=== PATIENT | female | born 1955 | race Caucasian/White ===

== ENCOUNTER → 2019-05-02 15:34 | Outpatient (CLI) | payer MEDICAID, SELFPAY ==
[2019-05-02 14:43] VITALS: BMI 19.6
--- NOTE | 2019-05-02 15:44 | RAD_ITS ---
STUDY: X-RAY CHEST REASON FOR EXAM: Female, 63 years old. Cough, shortness of breath and tightness of the chest. TECHNIQUE: 2 views COMPARISON: None. FINDINGS: The lungs are clear and expanded. There is no demonstrated pleural abnormality. Normal size heart. Normal mediastinum and jocy. Normal visualized pulmonary arteries. Normal visualized aortic arch and descending thoracic aorta. Normal visualized thoracic spine. Normal visualized ribs, clavicles, and shoulders. There is no demonstrated abnormality of the visualized soft tissue structures of the upper abdomen. RAD/Chest PA and Lateral IMPRESSION: Normal x-ray examination of the chest. Electronically Signed: Anastasiya Cardozo MD at 16:02 EST , Service support ,
== END ==
PROVIDERS: Family Provider Internal Medicine; PCP Internal Medicine; Referring Provider Nurse Practitioner Family; Visit Provider Nurse Practitioner Family
DX: R05 Cough (principal)
CPT/HCPCS: 71046

== ENCOUNTER 2019-05-07 10:12 | Emergency (ER) | payer MEDICAID, SELFPAY ==
[2019-05-02 14:43] VITALS: BMI 19.6
[2019-05-07 10:15] VITALS: BP 125/97; PULSE 88; RESP 16; TEMP 36.6; O2SAT 98; BMI 21.0
--- NOTE | 2019-05-07 10:41 | CT_ITS ---
STUDY: CT BRAIN WITHOUT CONTRAST REASON FOR EXAM: Female, 63 years old. Bruising of the left orbital region secondary to a syncopal episode. RADIATION DOSAGE (If Supplied By Facility): CTDIvol = ( 44.99 ) mGy, DLP = ( 678.00 ) mGycm TECHNIQUE: Transaxial CT imaging of the brain was performed without administration of intravenous contrast material. Individualized dose optimization techniques were used for this CT. COMPARISON: No relevant priors. FINDINGS: Normal soft tissue structures. Normal calvarium. Normal size ventricles and extra-axial spaces for the patient's age. Normal white matter tracts of the cerebral hemispheres. Normal basal ganglia and thalami. Normal brainstem. Normal cerebellum. There is no intracranial hemorrhage. There are no findings of an acute ischemic infarction. Normal visualized paranasal sinuses. CT/Brain/Head without Contrast IMPRESSION: Normal unenhanced CT scan of the brain. Electronically Signed: Solomon Barry, at 11:28 EST , Service support ,
--- NOTE | 2019-05-07 10:41 | EKG12_ITS ---
Test Reason : SYNCOPE Blood Pressure : / mmHG Vent. Rate : 079 BPM Atrial Rate : 079 BPM P-R Int : 136 ms QRS Dur : 078 ms QT Int : 346 ms P-R-T Axes : 066 052 038 degrees QTc Int : 396 ms Normal sinus rhythm Nonspecific ST abnormality Abnormal ECG Confirmed by GISELLA NUÑEZ, SHARDA ([id number]), development editor JOLENE SKELTON ([id number]) on 05/08/2019 1:52:11 PM Referred By: Nabil Stoddard Confirmed By:SHARDA OBANDO MD
[2019-05-07 10:43] VITALS: BP 158/89; PULSE 86; RESP 16; O2SAT 95
--- NOTE | 2019-05-07 10:45 | ED.DCSUM_ITS ---
- ER Visit Summary Date of Service: 05/07/19 Chief Complaint: Fatigue History of Present Illness: The patient is a 63 F who states that on Tuesday she was syncopal episode in the bathroom. When she woke up she had a black eye and soreness over the left mid chest in the midaxillary line. She states for the past 5 weeks she is felt increasingly dizzy lightheaded short of breath with decreased energy. States her children moved here from [place] the here. She states her earlier this year and she has not been sleeping and eating well. States that she knows that she is depressed. No suicidal or homicidal thoughts. She notes she recently establish care Dr. Schwartz office. She states that she feels like she had pneumonia she had a chest x-ray that was negative. Denies any chest pain. Her daughter states that they are concerned that she is going to kill over. And that is why they are here. She has a history of tachycardia hypertension and GERD. She is a former smoker. Tells me that she has irritable bowel and has had some mucus in her stools. Physical Examination: Afebrile vital signs stable Gen: Well-nourished well-developed Head: Normocephalic Eyes: Perrl EOMI left periorbital ecchymosis (purple) ENT: TMs clear no rhinorrhea moist mucous membranes Neck: Supple no lymphadenopathy no JVD nontender CVS: Regular rate rhythm no murmurs normal S1-S2 Respiratory: No distress clear to auscultation bilaterally chest to palpation in the mid thorax mid axillary line. On the left. Abdomen: Soft nontender nondistended normal bowel sounds no masses Back: Nontender Extremity: Nontender no edema Skin: Normal color no rash Neuro: alert orientated ?3 CN II-XII intact normal strength sensation reflexes gait cerebellar Psych: Normal affect normal mood Test Results: White count is 16.9 but I do not have a obvious source of infection for her. Basic labs are negative. Troponin is negative. Chest x-ray is negative CT the brain is negative. EKG showed a sinus rhythm at a rate 9 without ectopy. The last I have to compare to was 10 years ago. Emergency Department Course and Treatment: Orthostatics are negative. I do not have a clear etiology for her leukocytosis however she is recently been on antibiotics and has some mucousy stools. After she provide us a stool specimen she says no. Certainly her weakness fatigue could be related to her depression which is probably contributing to her significant 30 pound weight loss not eating or drinking as well and not sleeping very well. She may need a cardiac stress test. And echocardiogram. I spoke with and relayed my concerns. They will follow-up with her in the office. Patient return if worsening or runs. Impression: 1. Syncope 2. Left periorbital contusion 3. Left chest contusion 4. Leukocytosis 5. Depression This note was generated with [employer] software. It may contain incorrect words, spelling, and punctuation that were not noted in review of the chart prior to signing ED Disposition - Plan for ED Patient: Disposition: Home or Assisted Living Instructions: WEAKNESS, Unk Cause Referrals: Alexa Schwartz MD [Primary Care Provider] - As soon as possible Additional Instructions: In your discharge instructions is a order for stool culture and C. difficile testing.
[2019-05-07 10:46] VITALS: BP 115/76; BP 126/75; BP 156/77; PULSE 85; PULSE 89; PULSE 96
[2019-05-07 11:06] LABS: White Blood Cells 0 SEEN /hpf (0-5)
[2019-05-07 11:09] LABS: Absolute Lymphocyte Count 2.15 X10^3/uL (0.83-4.51); Absolute Neutrophil Count 13.1 X10^3/uL (2.0-7.7); Basophil# 0.05 X10^3/uL; Basophil% 0.3 % (0-1); Eosinophil# 0.04 X10^3/uL; Eosinophils% 0.2 % (0-5); Hemoglobin 14.5 g/dL (12.0-15.0); Lymphocyte # 2.15 X10^3/ul (4.0); Lymphocyte % 12.7 % (19-41); Mean Corp Hgb Conc 31.5 g/dL (32-36); Mean Platelet Vol. 11.1 fl (6.2-12.0); Monocyte# 1.44 X10^3/uL; Monocyte% 8.5 % (0-10); NRBC Flagged by Analyzer 0 % (0-5); Neutrophil # 13.13 X10^3/uL (2.7-7.7); Neutrophil % 77.6 % (47-70); Platelet Count 199 K/mm3 (150-450); RBC Distribution Width CV 12.9 % (11.6-14.6); RBC Distribution Width SD 43.6 fl (35.1-43.9); White Blood Count 16.9 K/mm3 (4.4-11.0)
[2019-05-07 11:15] LABS: Color, Urine Yellow (Yellow); Glucose, Dipstick Normal (Normal); Ketone-Dipstick Negative (Negative); Leukocyte Esterase-Dipstick Negative /ul (Negative); Nitrite-Dipstick Negative (Negative); Occult Blood-Urine 25 /ul (Negative); Protein-Dipstick 15 mg/dl (Negative); Urine Bilirubin Dipstick Negative (Negative); Urine Clarity Sl. Cloudy (Clear); Urine Urobilinogen Normal (Normal)
--- NOTE | 2019-05-07 11:15 | RAD_ITS ---
STUDY: X-RAY CHEST REASON FOR EXAM: Female, 63 years old. 50 and dizziness. TECHNIQUE: Single AP portable view of the chest. COMPARISON: Comparison is made with prior study dated May 02, 2019. FINDINGS: EKG electrodes are seen. Hyperinflation. Scattered calcified granulomas. There is no demonstrated pleural abnormality. Normal size heart. Normal mediastinum and jocy. Normal visualized pulmonary arteries. Normal visualized aortic arch and descending thoracic aorta. Normal visualized thoracic spine. Normal visualized ribs, clavicles, and shoulders. There is no demonstrated abnormality of the visualized soft tissue structures of the upper abdomen. RAD/Chest PA and Lateral IMPRESSION: Hyperinflation. Electronically Signed: Solomon Barry, at 11:28 EST , Service support ,
[2019-05-07 11:26] LABS: AST(SGOT) 19 U/L (15-37); Alanine Aminotransfer ALT/SGPT 25 U/L (13-56); Albumin, Serum 3.3 g/dL (3.2-5.0); Alkaline Phosphatase 94 U/L (45-117); Anion Gap 6 (5-15); BUN 10 mg/dL (7-18); Bilirubin, Direct 0.21 mg/dL (0.00-0.30); Calcium,Total 9.3 mg/dL (8.5-10.1); Chloride 105 mmol/L (98-107); EST Glomerular Filtration Rate 59 mL/min (>60); Est Glom Filt Rate - Afr Amer 72 mL/min (>60); Estimated Creatinine Clearance 45.54 ml/min; Globulin 4.3 g/dL (2.2-4.2); Glucose 106 mg/dL (74-106); Lipase 109 U/L (73-393); Potassium 3.9 mmol/L (3.5-5.1); Protein, Total 7.6 g/dL (6.4-8.2); Sodium Level 141 mmol/L (136-145)
[2019-05-07 11:31] LABS: Red Blood Cells-Urine 0-5 SEEN /hpf (0-5); Squamous Epithelial Cells - UA 0-5 SEEN /hpf (5-10)
[2019-05-07 11:32] LABS: Bacteria RARE /hpf (None Seen); Mucous, Urine RARE /hpf (<or=2+)
[2019-05-07 12:13] VITALS: BP 148/99; PULSE 85; RESP 16; O2SAT 96
== END 2019-05-07 13:03 | disposition home or self-care (01) ==
PROVIDERS: Emergency Provider Emergency Medicine; Family Provider Internal Medicine; PCP Internal Medicine
DX: R55 Syncope and collapse (principal); S00.12XA Contusion of left eyelid and periocular area, initial encounter; S20.212A Contusion of left front wall of thorax, initial encounter; X58.XXXA Exposure to other specified factors, initial encounter; Y93.9 Activity, unspecified; Y92.9 Unspecified place or not applicable; Y99.9 Unspecified external cause status; D72.829 Elevated white blood cell count, unspecified; F32.9 Major depressive disorder, single episode, unspecified; I10 Essential (primary) hypertension; K21.9 Gastro-esophageal reflux disease without esophagitis; K58.9 Irritable bowel syndrome, unspecified; R00.0 Tachycardia, unspecified; R63.4 Abnormal weight loss; F41.9 Anxiety disorder, unspecified; Z79.899 Other long term (current) drug therapy; Z87.891 Personal history of nicotine dependence
CPT/HCPCS: 70450; 71046; 80048; 80076; 81001; 83690; 84484; 85025; 93005; 99285; A4216

== ENCOUNTER → 2019-05-08 08:24 | Outpatient (CLI) | payer MEDICAID, SELFPAY ==
[2019-05-07 10:15] VITALS: BMI 21.0
== END ==
PROVIDERS: Family Provider Internal Medicine; PCP Internal Medicine; Referring Provider Internal Medicine; Visit Provider Internal Medicine
DX: R19.7 Diarrhea, unspecified (principal)
CPT/HCPCS: 87493; 87506

== ENCOUNTER → 2019-06-07 11:58 | Outpatient (CLI) | payer MEDICAID, SELFPAY ==
[2019-06-07 10:39] VITALS: BMI 19.8
[2019-06-07 13:28] LABS: T4 Total, Thyroxin 9.6 ug/dL (4.8-13.9); Thyroid Stim Hormone (TSH) 1.03 uIU/mL (0.358-3.74)
== END ==
PROVIDERS: Family Provider Internal Medicine; PCP Internal Medicine; Referring Provider Internal Medicine Cardiovascular Disease; Visit Provider Internal Medicine Cardiovascular Disease
DX: R53.83 Other fatigue (principal)
CPT/HCPCS: 36415; 84436; 84443

== ENCOUNTER → 2019-06-11 12:24 | Outpatient (REF) | payer MEDICAID, SELFPAY ==
[2019-06-07 10:39] VITALS: BMI 19.8
== END ==
LOC: CVS 12:24
PROVIDERS: Family Provider Internal Medicine; PCP Internal Medicine; Referring Provider Internal Medicine Cardiovascular Disease; Visit Provider Internal Medicine Cardiovascular Disease
DX: R00.2 Palpitations (principal); R53.83 Other fatigue
CPT/HCPCS: 93270

== ENCOUNTER → 2019-06-14 08:28 | Outpatient (CLI) | payer MEDICAID, SELFPAY ==
[2019-06-13 14:40] VITALS: BMI 19.8
[2019-06-14 12:15] LABS: Absolute Lymphocyte Count 2.24 X10^3/uL (0.83-4.51); Basophil# 0.05 X10^3/uL; Basophil% 0.7 % (0-1); Eosinophils% 1.4 % (0-5); Hematocrit 46.3 % (37-47); Hemoglobin 14.6 g/dL (12.0-15.0); Lymphocyte # 2.24 X10^3/ul (4.0); Lymphocyte % 31.9 % (19-41); Mean Corp Hgb Conc 31.5 g/dL (32-36); Mean Corpuscular Hgb 28.9 pg (27.0-32.0); Mean Corpuscular Volume 91.5 fL (81-99); Mean Platelet Vol. 12.2 fl (6.2-12.0); Monocyte# 0.61 X10^3/uL; Monocyte% 8.7 % (0-10); NRBC Flagged by Analyzer 0 % (0-5); Neutrophil # 4.01 X10^3/uL (2.7-7.7); Platelet Count 181 K/mm3 (150-450); RBC Distribution Width CV 13.1 % (11.6-14.6); Red Blood Count 5.06 M/mm3 (4.2-5.4)
[2019-06-14 12:35] LABS: Vitamin D,25 Hydroxy 36.3 ng/mL (29.95-100.01)
== END ==
PROVIDERS: Family Provider Internal Medicine; PCP Internal Medicine; Visit Provider Internal Medicine
DX: D72.829 Elevated white blood cell count, unspecified (principal); F32.9 Major depressive disorder, single episode, unspecified; F41.9 Anxiety disorder, unspecified; R53.83 Other fatigue; E55.9 Vitamin D deficiency, unspecified; M81.0 Age-related osteoporosis without current pathological fracture
CPT/HCPCS: 36415; 82306; 85025

== ENCOUNTER → 2019-06-26 05:44 | Outpatient (CLI) | payer MEDICAID, SELFPAY ==
[2019-06-07 10:39] VITALS: BMI 19.8
[2019-06-13 14:40] VITALS: BMI 19.8
--- NOTE | 2019-06-26 05:44 | ECHOD_ITS ---
Reason For Study: SOB Procedure This was a 2D Doppler, Color Flow transthoracic echocardiogram. The exam was of adequate technical quality. Exam performed in department. Left Ventricle Normal LV size. Left ventricular systolic function is normal. The estimated ejection fraction is 60 %. No evidence for diastolic dysfunction. No regional wall motion abnormalities noted. Right Ventricle Normal RV size. Normal systolic function. Atria The left atrium is mildly enlarged. Normal right atrium. No doppler evidence for ASD. Mitral Valve There is no mitral annular calcification. Normal mitral valve. Mild (1+) mitral valve insufficiency. Tricuspid Valve Normal tricuspid valve. Trivial tricuspid valve insufficiency. Right ventricular systolic pressure estimated to be 26 mmHg. Aortic Valve Trisinus/trileaflet aortic valve. Normal aortic valve. Pulmonic Valve The pulmonic valve is not well visualized. Great Vessels Normal sized aortic root. Pericardium/Pleural No pericardial effusion. MMode/2D Measurements & Calculations LVIDd: 3.9 cm IVSd: 1.1 cm Ao root diam: 2.9 cm LVIDs: 2.6 cm LVPWd: 0.73 cm RVDd: 2.4 cm FS: 32.1 % LAV(MOD-bp): 32.4 ml LA A4 area: 14.7 cm2 LA dimension(2D): 2.6 cm LAV(MOD-bp) Indexed: 21.6 ml/m2 LAV(MOD-sp2): 31.2 ml LAV(MOD-sp4): 34.5 ml RA A4 area: 10.7 cm2 Doppler Measurements & Calculations MV E max rancho: 59.2 cm/sec Lat Peak E' Rancho: 10.8 cm/sec Med Peak E' Rancho: 7.3 cm/sec MV A max rancho: 65.7 cm/sec E/E' lat: 5.5 E/E' med: 8.1 MV E/A: 0.90 Ao V2 max: 116.4 cm/sec LV V1 max: 98.3 cm/sec PA V2 max: 93.0 cm/sec Ao max P.4 mmHg LV V1 max P.9 mmHg TR max rancho: 237.8 cm/sec TR max P.6 mmHg Interpretation Summary Left ventricular systolic function is normal. The estimated ejection fraction is 60 %. The left atrium is mildly enlarged. Mild (1+) mitral valve insufficiency. Trivial tricuspid valve insufficiency. Right ventricular systolic pressure estimated to be 26 mmHg. No evidence for diastolic dysfunction. Ordering Physician: Alvarez Salinas Referring Physician: Alexa Schwartz Performed By: Penny Casanova RDCS
--- NOTE | 2019-06-26 11:29 | STRESSREP_ITS ---
Stress Test Report Date: 06-26-19 Procedure: Exercise tolerance test/imaging study Indications: Shortness of breath/dyspnea on exertion; fatigue; syncope Consent: Per the patient Procedure: The patient exercised on a Sridhar protocol for 4 minutes and 30 seconds completing Stage I and 1 minute and 30 seconds of Stage II achieving a peak heart rate of 139 bpm (89 % predicted maximal heart rate) with a peak blood pressure 154/87 mmHg and a peak MET capacity of 6 METs. The baseline ECG demonstrated normal sinus rhythm; subtle ST segment depression (lead II, III, aVF, and V4 through V6). The peak exercise ECG demonstrated additional 1 to 2 mm of horizontal/downsloping ST segment depression in leads II, III, aVF, and V4 through V6 with gradual resolution towards baseline in recovery. There were rare PVCs pretest and in exercise and rare PACs during exercise. The functional capacity was considered decreased. There was no complaint of chest discomfort during exercise or recovery. The examination was discontinued secondary to dyspnea. Impression: 1. Technically adequate (percent predicted maximal heart rate greater than 85%) exercise tolerance test 2. Peak exercise ECG with an additional 1 to 2 mm of horizontal/downsloping ST segment depression in leads II, III, aVF, and V4 through V6 with gradual resolution towards baseline in recovery 3. There were rare PVCs pretest and in exercise and rare PACs during exercise 4. Nuclear images pending Myocardial perfusion imaging study: Technique: The patient was injected with 10.6 mCi of technetium 99m Cardiolite and subsequently rest SPECT Cardiolite nuclear imaging was obtained in the horizontal long, vertical long, and short axis views. The patient exercised on a Sridhar protocol for 4 minutes and 30 seconds completing Stage I and 1 minute and 30 seconds of Stage II achieving a peak heart rate of 139 bpm (89 % predicted maximal heart rate) with a peak blood pressure 154/87 mmHg and a peak MET capacity of 6 METs. The patient was injected with the 37.5 mCi of technetium 99m Cardiolite and subsequently stress SPECT Cardiolite nuclear imaging was obtained in the horizontal long, vertical long, and short axis views. A gated Cardiolite study at peak stress was obtained. Interpretation: Rest and stress SPECT Cardiolite nuclear imaging status post realignment, normalization, and attenuation correction, demonstrates the appearance of relative uniform tracer uptake and myocardial perfusion appearing within normal limits. There is end systolic thickening and brightening. The gated Cardiolite study demonstrates myocardial thickening and inward wall motion. The reported LVEF is 75 %. Impression: 1. Rest and stress SPECT Cardiolite nuclear imaging demonstrate relative uniform tracer uptake and myocardial perfusion appearing within normal limits. 2. The gated Cardiolite study reports an LVEF of 75 %. This note was generated with [employer] software. It may contain incorrect words, spelling, and punctuation that were not noted in checking the note before signing.
== END ==
PROVIDERS: Family Provider Internal Medicine; PCP Internal Medicine; Referring Provider Internal Medicine Cardiovascular Disease; Visit Provider Internal Medicine Cardiovascular Disease
DX: R53.83 Other fatigue (principal); R06.02 Shortness of breath
CPT/HCPCS: 78452; 93017; 93306; A9500; A4216

== ENCOUNTER 2019-07-10 16:37 | Observation (INO) | payer MEDICAID, SELFPAY ==
[2019-07-02 10:29] VITALS: BMI 19.8
[2019-07-03 13:05] VITALS: BMI 19.8
[2019-07-03 15:20] LABS: Hematocrit 46.8 % (37-47); Hemoglobin 14.8 g/dL (12.0-15.0); Mean Corp Hgb Conc 31.6 g/dL (32-36); Mean Corpuscular Hgb 28.5 pg (27.0-32.0); Mean Corpuscular Volume 90.2 fL (81-99); Mean Platelet Vol. 11.6 fl (6.2-12.0); Platelet Count 232 K/mm3 (150-450); RBC Distribution Width CV 12.6 % (11.6-14.6); RBC Distribution Width SD 41.7 fl (35.1-43.9); Red Blood Count 5.19 M/mm3 (4.2-5.4); White Blood Count 8.3 K/mm3 (4.4-11.0)
[2019-07-03 15:27] LABS: Prothrombin Time (Protime)PT. 12.9 SECONDS (11.7-14.9)
[2019-07-03 15:28] LABS: Partial Thromboplast Time 31.6 Seconds (24.1-36.2)
[2019-07-03 15:52] LABS: Anion Gap 5 (5-15); BUN 9 mg/dL (7-18); BUN/Creat Ratio 9.5 RATIO (10-20); Calcium,Total 9.5 mg/dL (8.5-10.1); Chloride 108 mmol/L (98-107); Creatinine, Serum 0.95 mg/dL (0.55-1.02); EST Glomerular Filtration Rate 63 mL/min (>60); Est Glom Filt Rate - Afr Amer 76 mL/min (>60); Glucose 86 mg/dL (74-106); Sodium Level 141 mmol/L (136-145)
[2019-07-09 08:11] VITALS: BMI 19.8
[2019-07-10] VITALS (14 sets, daily range): BP systolic 94–121; BP diastolic 45–68; PULSE 63–75; RESP 15–18; TEMP 36.4–37.3; O2SAT 92–100; BMI 19.8
--- NOTE | 2019-07-10 09:02 | HP.PCM_ITS ---
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 She has a history of shortness of breath/dyspnea, fatigue, palpitations/tachycardia symptoms, and syncope. She stated previously that in March 2019, while moving and packing boxes, she realized she did not feel well. She felt more short of breath and dyspneic and fatigued and had to stop and rest. Over time she has noted palpitations and the sensation of a rapid heart rate flutters . She has had at least 3 episodes of syncope. She notes the first episode occurred after she awoke from sleep and went to the bathroom. She states on the way to the bathroom she fell and ended up having bruising on her entire left side. She was evaluated approximately 2 days later in the emergency department with no clear-cut etiology. She states that she has had 2 other events since that time one a similar situation event and the other in event after sitting on the sofa and getting up and then subsequently finding herself falling backwards into the sofa. Due to concerning symptoms of shortness of breath, fatigue, and syncope she underwent a stress test on 06/26/2019. Her EKG showed 1 to 2 mm horizontal/downsloping ST segment depression in leads II, III, aVF, and V4 through V6 with gradual exertion towards baseline in recovery. There were rare PVCs pretest and in exercise and rare PACs during exercise. Her nuclear images showed uniform tracer uptake and myocardial perfusion appearing within normal limits. Her echocardiogram on 06/26/2019 showed just fraction of 60% and no regional wall motion abnormalities. She was noted have mild mitral valve insufficiency. Due to her ongoing shortness of breath and EKG changes, it was recommended she undergo a heart catheterization for further evaluation of coronary artery disease. She denies chest, arm, jaw, or neck discomfort. Her exercise tolerance is stable. She denies symptoms of lightheadedness, dizziness, near syncope, or syncopal episodes. She denies edema or claudication issues. She denies orthopnea, PND, fever, chills, blood in urine, blood in stool, or myalgia. She continues with fatigue and shortness of breath. He states feeling shock in her chest at times. Intake Vital Signs See EMR Intake Visit Reasons: [employer] Required: No Accompanied by: Daughter Allergies tramadol Allergy (Severe, Verified 06/07/19 10:39) Fast heart beat lanolin [From Phisoderm] Allergy (Mild, Verified 06/07/19 10:39) Rash petrolatum,white [From Phisoderm] Allergy (Mild, Verified 06/07/19 10:39) Rash Estrogen Patch Allergy (Unknown, Uncoded 06/07/19 10:39) Rash Medications See EMR [facility] Medical History Essential hypertension (Chronic) Anxiety and depression (Chronic) Syncopal episodes (Chronic) Rheumatoid arthritis (Chronic) Osteoporosis (Chronic) Tachycardia (Chronic) IBS (irritable bowel syndrome) (Chronic) GERD (gastroesophageal reflux disease) (Chronic) Anemia (Acute) Cervical cancer (Acute) Anxiety (Chronic) Arthritis (Chronic) Cataract (Chronic) Frequent headaches (Chronic) Hypoglycemia (Chronic) Seasonal allergies (Chronic) Bone fracture (Resolved) Breast tumor (Resolved) Pneumonia (Resolved) UTI (urinary tract infection) (Resolved) Surgical History History Clip Left Breast (Resolved) History of D&C (Resolved) History of loop electrosurgical excision procedure (LEEP) (Resolved) History of tonsillectomy (Resolved) History of tubal ligation (Resolved) Family History Other Anxiety Arthritis Breast cancer Cancer Diabetes Heart disease High cholesterol Hypertension Myocardial infarction Osteoporosis Social History (Updated 06/07/19 @ 12:58 by Alvarez Salinas MD) Smoking Status: Former smoker how long ago did patient quit smokin alcohol intake: never substance use type: does not use caffeine: Yes Type: coffee Number of servings: 1 what type of physical activity do you participate in: none ROS Const Const: Positive for fatigue (increased) and weakness (increased); negative for frequent falls, excessive sweating, weight gain or weight loss Eyes Eyes: Negative for transient loss of vision, blurry vision or change in vision ENT ENT: Positive for dizziness (occasional with activities and sitting to standing); negative for balance problems Cardio Chest Pain: No Palpitations: Yes (all of the time) feels like its: fast, other (flutters) Edema: None Muscle aches with walking: None Resp Respiratory: Positive for SOB with activity and SOB at rest GI GI: Negative vomiting or vomiting blood/hematemesis : Negative for hematuria Musc Musc: Negative for muscle aches/ myalgia, muscle weakness, joint pain or balance problems Skin Skin: Negative non-healing lesions or rash Neuro Neuro: Positive for dizziness (occasional with activities and sitting to standing), lightheadedness (occasional with activities and sitting to standing), near syncope, syncope (x3 episodes going from sitting to standing) and weakness (increased); negative for orthostatic symptoms, frequent falls or blurry vision Sancho Hematologic/Lymphatic: Negative for easy bleeding Endo Endo: Positive for fatigue (increased); negative for excessive sweating Psych Psych: Negative for anxiety or depression Allergy Allergy/Immunology: Negative for hives, Negative for rash Cardiology Exam Const Appearance: cooperative, healthy appearing, comfortable, no acute distress, well developed and well groomed Nutritional Appearance: thin Orientation: alert, awake and oriented x3 Head Head: normal to inspection, normocephalic and atraumatic Ears: hearing grossly normal bilaterally Nose: external nose normal Face and Sinus: face symmetric Mouth: oral mucosae normal Teeth and gingiva: fair dentition Eyes Eyelids: eyelids normal Conjunctivae: conjunctivae normal Pupils: PERRL EOM: EOM intact bilaterally Neck Neck: normal visual inspection and full ROM Carotids: normal carotid upstroke Chest Chest inspection: normal inspection of the chest, symmetric chest movement and normal respiratory effort Auscultation: Bilateral: Clear to Auscultation Cardio Palpation: normal PMI Rate: regular rate Rhythm: regular rhythm Heart sounds: S1 normal and S2 normal GI GI: normal to inspection, soft and bowel sounds present Neuro General: alert, awake, oriented x3 and moves all extremities Skin Skin: no rashes or lesions noted Extremities Pulses: Normal: Right Radial Pulse, Left Radial Pulse Lower Extremity Edema: None: Bilateral Psych Psychological: normal affect Assessment & Plan 1. Syncope, unspecified syncope type R55 Plan At the present time the etiology of her syncope is uncertain, however, it appears that she has had situational events raising concerns as to whether or not she had positional/orthostatic/vagally mediated type events. At the moment she was encouraged to maintain adequate hydration. She will continue her medical management with adjustments as noted. She will also undergo further cardiovascular evaluation for her multiple symptoms and concerns. We will await the results of her 30-day event monitor for further input and recommendation. Over time, she may require tilt table study. 2. Tachycardia R00.0 Plan Again she will undergo a 30-day ambulatory event monitor and attempt to correlate any of her symptoms with her clinical events. 3. Palpitations R00.2 Plan She will continue evaluation with a 30-day ambulatory event monitor to try and correlate her symptoms with her events. 4. Essential hypertension I10 Plan She will continue with medical therapy. 5. Shortness of breath R06.02 Plan This will be further evaluated with left heart catheterization to evaluate coronary artery disease component. As noted above, her echocardiogram showed preserved ejection fraction, mild mitral valve insufficiency, RVSP 26 mmHg, no diastolic dysfunction, and mildly enlarged left atrium. She will proceed with [facility]. 6. Fatigue, unspecified type R53.83 Plan Her laboratory evaluation with TSH and T4 on 06/07/2019 were within normal limits. Additional Comments Thank you for allowing me to participate in the care of your patient. Please don't hesitate to call if any issues arise. This note was generated using a voice recognition system and there may be incorrect words, spelling or punctuation that were not noted when reviewing the office note prior to saving.
--- NOTE | 2019-07-10 09:09 | PCM.HP.BLA ---
Problem List (1) Dyspnea on exertion Status: Acute (2) Abnormal stress test Status: Acute (3) Syncopal episodes Status: Chronic Qualifiers: Syncope type: unspecified Qualified Code(s): R55 - Syncope and collapse (4) Essential hypertension Status: Chronic History and Physical Date of Admission: 07/10/19 [facility] [address] [place] [address] OFFICE VISIT Date of Service: 06/07/19 MR#: [id number] Acct: [id number] Name: CATHI GONZALEZ Rep #: [id number] : 1955 Provider: Alvarez Salinas MD Age/Sex: 64/F [place] [facility] [place] Status: Signed [facility] History of Present Illness Details: This is a 64-year-old white female who presents for outpatient cardiovascular consultation based upon a variety of concerns including shortness of breath/dyspnea, fatigue, palpitations/tachycardia symptoms, and syncope. She states that in March, while moving and packing boxes, she realized she did not feel well. She felt more short of breath and dyspneic and fatigued and had to stop and rest. Over time she has noted palpitations and the sensation of a rapid heart rate flutters . She has had at least 3 episodes of syncope. She notes the first episode occurred after she awoke from sleep and went to the bathroom. She states on the way to the bathroom she fell and ended up having bruising on her entire left side. She was evaluated approximately 2 days later in the emergency department with no clear-cut etiology. She states that she has had 2 other events since that time one a similar situation event and the other in event after sitting on the sofa and getting up and then subsequently finding herself falling backwards into the sofa. She is not necessarily complaining of ongoing chest discomfort at rest or with exertion. There is been no orthopnea or PND or peripheral pitting edema. However she states that she does not believe she has been drinking and eating well. She believes she has lost approximately 30 pounds. Throughout her evaluation she was told that she may have had some form of infection. She was treated with antibiotics and corticosteroids. However she is not convinced that she ever truly did have an infection. She states that she underwent no other outpatient testing. In the emergency department per their report she had laboratory studies performed with a troponin I level which was considered negative, an ECG which reportedly demonstrated sinus rhythm, and a chest x-ray and brain CT scan which were both considered negative. (Per the emergency department report). She had an ECG in the office today. She was noted to be in sinus rhythm with subtle nonspecific ST segment abnormality. Intake Vital Signs 06/07/19 Blood Pressure 162/100 H 06/07/19 Blood Pressure Location Lt brachial 06/07/19 Blood Pressure Position Standing 06/07/19 Height 5 ft 2.5 in 06/07/19 Weight: 110 lb 1 oz 06/07/19 Body Mass Index (BMI) 19.8 06/07/19 Blood Pressure 164/92 H 06/07/19 Blood Pressure Location Lt brachial 06/07/19 Blood Pressure Position Sitting 06/07/19 Respiratory Rate 16 06/07/19 Pulse Rate 56 L 06/07/19 Pulse Source Auscultation 06/07/19 Body Mass Index (BMI) 21.0 Intake Visit Reasons: tachycardia/ Ref. Efren Mobility Architect Required: No Accompanied by: Daughter Allergies tramadol Allergy (Severe, Verified 06/07/19 10:39) Fast heart beat lanolin [From Phisoderm] Allergy (Mild, Verified 06/07/19 10:39) Rash petrolatum,white [From Phisoderm] Allergy (Mild, Verified 06/07/19 10:39) Rash Estrogen Patch Allergy (Unknown, Uncoded 06/07/19 10:39) Rash Medications famotidine 20 mg tablet 20 mg PO QHS #30 tab 05/16/19 [Rx Confirmed 06/07/19] sertraline 25 mg tablet 25 mg PO DAILY #60 tab 05/16/19 [Rx Confirmed 06/07/19] amlodipine 2.5 mg tablet 2.5 mg PO DAILY #30 tab 06/07/19 [Rx Confirmed 06/07/19] metoprolol succinate ER 25 mg tablet,extended release 24 hr 25 mg PO DAILY #30 tab 06/07/19 [Rx Confirmed 06/07/19] PFSH Medical History Essential hypertension (Chronic) Anxiety and depression (Chronic) Syncopal episodes (Chronic) Rheumatoid arthritis (Chronic) Osteoporosis (Chronic) Tachycardia (Chronic) IBS (irritable bowel syndrome) (Chronic) GERD (gastroesophageal reflux disease) (Chronic) Anemia (Acute) Cervical cancer (Acute) Anxiety (Chronic) Arthritis (Chronic) Cataract (Chronic) Frequent headaches (Chronic) Hypoglycemia (Chronic) Seasonal allergies (Chronic) Bone fracture (Resolved) Breast tumor (Resolved) Pneumonia (Resolved) UTI (urinary tract infection) (Resolved) Surgical History History Clip Left Breast (Resolved) History of D&C (Resolved) History of loop electrosurgical excision procedure (LEEP) (Resolved) History of tonsillectomy (Resolved) History of tubal ligation (Resolved) Family History Other Anxiety Arthritis Breast cancer Cancer Diabetes Heart disease High cholesterol Hypertension Myocardial infarction Osteoporosis Social History (Updated 06/07/19 @ 12:58 by Alvarez Salinas MD) Smoking Status: Former smoker how long ago did patient quit smokin alcohol intake: never substance use type: does not use caffeine: Yes Type: coffee Number of servings: 1 what type of physical activity do you participate in: none ROS Const Const: Positive for fatigue (increased) and weakness (increased); negative for frequent falls, excessive sweating, weight gain or weight loss Eyes Eyes: Negative for transient loss of vision, blurry vision or change in vision ENT ENT: Positive for dizziness (occasional with activities and sitting to standing); negative for balance problems Cardio Chest Pain: No Palpitations: Yes (all of the time) feels like its: fast, other (flutters) Edema: None Muscle aches with walking: None Resp Respiratory: Positive for SOB with activity and SOB at rest GI GI: Negative vomiting or vomiting blood/hematemesis : Negative for hematuria Musc Musc: Negative for muscle aches/ myalgia, muscle weakness, joint pain or balance problems Skin Skin: Negative non-healing lesions or rash Neuro Neuro: Positive for dizziness (occasional with activities and sitting to standing), lightheadedness (occasional with activities and sitting to standing), near syncope, syncope (x3 episodes going from sitting to standing) and weakness (increased); negative for orthostatic symptoms, frequent falls or blurry vision Sancho Hematologic/Lymphatic: Negative for easy bleeding Endo Endo: Positive for fatigue (increased); negative for excessive sweating Psych Psych: Negative for anxiety or depression Allergy Allergy/Immunology: Negative for hives, Negative for rash Cardiology Exam Const Appearance: cooperative, healthy appearing, comfortable, no acute distress, well developed and well groomed Nutritional Appearance: thin Orientation: alert, awake and oriented x3 Head Head: normal to inspection, normocephalic and atraumatic Ears: hearing grossly normal bilaterally Nose: external nose normal Face and Sinus: face symmetric Mouth: oral mucosae normal Teeth and gingiva: fair dentition Eyes Eyelids: eyelids normal Conjunctivae: conjunctivae normal Pupils: PERRL EOM: EOM intact bilaterally Neck Neck: normal visual inspection and full ROM Carotids: normal carotid upstroke Chest Chest inspection: normal inspection of the chest, symmetric chest movement and normal respiratory effort Auscultation: Bilateral: Clear to Auscultation Cardio Palpation: normal PMI Rate: regular rate Rhythm: regular rhythm Heart sounds: S1 normal and S2 normal GI GI: normal to inspection, soft and bowel sounds present Neuro General: alert, awake, oriented x3 and moves all extremities Skin Skin: no rashes or lesions noted Extremities Pulses: Normal: Right Radial Pulse, Left Radial Pulse Lower Extremity Edema: None: Bilateral Psych Psychological: normal affect Assessment & Plan 1. Syncope, unspecified syncope type R55 Plan At the present time the etiology of her syncope is uncertain, however, it appears that she has had situational events raising concerns as to whether or not she had positional/orthostatic/vagally mediated type events. At the moment she was encouraged to maintain adequate hydration. She will continue her medical management with adjustments as noted. She will also undergo further cardiovascular evaluation for her multiple symptoms and concerns. This will include an outpatient 30-day ambulatory event monitor, transthoracic echocardiogram, and an exercise tolerance test/imaging study. She may also need over time further evaluation with a tilt table study. 2. Tachycardia R00.0 Plan Again she will undergo a 30-day ambulatory event monitor and attempt to correlate any of her symptoms with her clinical events. Orders Orders: 12 Lead EKG performed [place] [facility] [place] 3. Palpitations R00.2 Plan She will continue evaluation with a 30-day ambulatory event monitor to try and correlate her symptoms with her events. Orders Orders: 30 Day Event Recorder BioT Today 4. Essential hypertension I10 Plan Her patients will be adjusted. Based upon her underlying heart rate she will continue her metoprolol XL at 25 mg a day as opposed to increasing it to 100 mg a day. She will also initiate medical management with amlodipine at 2.5 mg a day and attempt to bring her blood pressure down without adversely affecting her heart rate. These medications may need to be adjusted over time depending upon her response. Orders Orders: 12 Lead EKG performed by [facility] Today 5. Shortness of breath R06.02 Plan Again she will undergo further evaluation. This will include an echocardiogram and an exercise tolerance test/imaging study. 6. Fatigue, unspecified type R53.83 Plan She will have the aforementioned evaluation plus thyroid function studies performed. Orders Orders: T4 Total, Thyroxin Today Thyroid Stim Hormone (TSH) Today 30 Day Event Recorder BioTel Today Echo Complete Today Nuclear Stress Test - Treadmil Today Plan Detail Other Medications New: metoprolol succinate ER 25 mg PO DAILY 30 tabs 3RF amlodipine 2.5 mg PO DAILY 30 tabs 6RF Discontinued: metoprolol succinate ER Discontinued Reason: Order Changed 100 mg PO DAILY 90 tabs 2RF Additional Comments The above was discussed with her. She was agreeable to this approach. Thank you for allowing me to participate in the care of your patient. Please don't hesitate to call if any issues arise. This note was generated using a voice recognition system and there may be incorrect words, spelling or punctuation that were not noted when reviewing the office note prior to saving. Follow Up 6 Weeks (PFM) 06/07/19 (copy of PCP ([facility] [place]) lipid labs) Coding Level of Care Code Off vis,new,level 5 Diagnoses Syncope, unspecified syncope type R55 ??Syncope type: unspecified Tachycardia R00.0 Palpitations R00.2 Essential hypertension I10 Shortness of breath R06.02 Fatigue, unspecified type R53.83 ??Fatigue type: unspecified Coding Level of Care Code Off vis,new,level 5 Diagnoses Syncope, unspecified syncope type R55 ??Syncope type: unspecified Tachycardia R00.0 Palpitations R00.2 Essential hypertension I10 Shortness of breath R06.02 Fatigue, unspecified type R53.83 ??Fatigue type: unspecified Supplemental Info Supplemental Information Diagnostics Electrocardiogram 06/07/19 Chest X-Ray 05/07/19 06/07/19 6997 <Electronically signed by Alvarez Salinas MD> Date Alvarez Salinas MD Cosigner Signature: Date (if applicable) CC: Alexa Schwartz MD ~ I have examined the patient the following changes are noted: The patient has undergone further evaluation with a transthoracic echocardiogram and an exercise tolerance test/imaging study. The results are as noted. Transthoracic echocardiogram: 06-26-2019 Left ventricle, LV systolic function normal estimated LVEF of 60% Mild left atrial enlargement Mild MR Trivial TR Estimated RV systolic pressure 26 mmHg No evidence of diastolic dysfunction Stress Test Report Date: 06-26-19 Procedure: Exercise tolerance test/imaging study Indications: Shortness of breath/dyspnea on exertion; fatigue; syncope Consent: Per the patient Procedure: The patient exercised on a Sridhar protocol for 4 minutes and 30 seconds completing Stage I and 1 minute and 30 seconds of Stage II achieving a peak heart rate of 139 bpm (89 % predicted maximal heart rate) with a peak blood pressure 154/87 mmHg and a peak MET capacity of 6 METs. The baseline ECG demonstrated normal sinus rhythm; subtle ST segment depression (lead II, III, aVF, and V4 through V6). The peak exercise ECG demonstrated additional 1 to 2 mm of horizontal/downsloping ST segment depression in leads II, III, aVF, and V4 through V6 with gradual resolution towards baseline in recovery. There were rare PVCs pretest and in exercise and rare PACs during exercise. The functional capacity was considered decreased. There was no complaint of chest discomfort during exercise or recovery. The examination was discontinued secondary to dyspnea. Impression: 1. Technically adequate (percent predicted maximal heart rate greater than 85%) exercise tolerance test 2. Peak exercise ECG with an additional 1 to 2 mm of horizontal/downsloping ST segment depression in leads II, III, aVF, and V4 through V6 with gradual resolution towards baseline in recovery 3. There were rare PVCs pretest and in exercise and rare PACs during exercise 4. Nuclear images pending Myocardial perfusion imaging study: Technique: The patient was injected with 10.6 mCi of technetium 99m Cardiolite and subsequently rest SPECT Cardiolite nuclear imaging was obtained in the horizontal long, vertical long, and short axis views. The patient exercised on a Sridhar protocol for 4 minutes and 30 seconds completing Stage I and 1 minute and 30 seconds of Stage II achieving a peak heart rate of 139 bpm (89 % predicted maximal heart rate) with a peak blood pressure 154/87 mmHg and a peak MET capacity of 6 METs. The patient was injected with the 37.5 mCi of technetium 99m Cardiolite and subsequently stress SPECT Cardiolite nuclear imaging was obtained in the horizontal long, vertical long, and short axis views. A gated Cardiolite study at peak stress was obtained. Interpretation: Rest and stress SPECT Cardiolite nuclear imaging status post realignment, normalization, and attenuation correction, demonstrates the appearance of relative uniform tracer uptake and myocardial perfusion appearing within normal limits. There is end systolic thickening and brightening. The gated Cardiolite study demonstrates myocardial thickening and inward wall motion. The reported LVEF is 75 %. Impression: 1. Rest and stress SPECT Cardiolite nuclear imaging demonstrate relative uniform tracer uptake and myocardial perfusion appearing within normal limits. 2. The gated Cardiolite study reports an LVEF of 75 %. Based upon the patient's clinical course and objective findings there was concern of the possibility of underlying CAD. Thus the patient was asked to consider further definitive evaluation of her coronary anatomy with diagnostic cardiac catheterization. The procedure and risks were discussed with the patient. She was agreeable to this approach. This procedure is scheduled to occur at [facility] on 07-10-2019. This note was generated using a voice recognition system and there may be incorrect words, spelling or punctuation that were not noted when reviewing the office note prior to saving.
--- NOTE | 2019-07-10 10:48 | CL.I_ITS ---
Patient Name: CATHI GONZALEZ Study Date: 07/10/2019 Performing: Chap[place] Mg MD Ht: 62.59 inches 159 cm : 1955 Wt: 110.23 lbs 50 kg Age: 64 Gender: female BSA: 1.49 PROCEDURE(S) PERFORMED RF51-SSG, CORONARY OR GRAFT, INITIAL VESSEL CLINICAL PROFILE AND CO-MORBIDITIES Indications: Suspected CAD, Suspected CAD Heart Failure: None Stress/Imaging Date: 06/26/2019 Stress Test with SPECT MPI: Indeterminant (abnormal ECG portion / negative nuclear imaging portion) Angina Classification Anginal Classification w/in 2 Weeks: No symptoms CAD Presentations: Other: shortness of breath / syncope Symptom unlikely to be ischemic. Comorbidities/Risk Factors: Hypertension Dyslipidemia CONCLUSIONS FFR of combined proximal and mid LAD lesion with adenosine augmentation was 0.89, non-significant. RECOMMENDATIONS Highly recommend quitting all tobacco products Follow up with primary validation engineer Risk factor modification ASA Indefinitley Plavix for at least 12 months Routine post interventional care Refer for Outpatient Cardiac Rehab Manual sheath removal per protocol Follow up with Dr. Salinas Successful Mync Control closure of RFA. D/c plavix. DESCRIPTION OF PROCEDURE The patient arrived to the procedure lab. The risks and benefits of the procedure as well as a full d escription of our services here and current unavailability of surgical backup were fully explained to the patient and/or their significant other prior to the catheterization. The Timeout was completed, verifying the correct patient and procedure. The patient's procedural site was prepped and draped in the usual fashion. Local anesthetic was given subcutaneously to right groin region with Lidocaine 2% Using a modified Seldinger technique,arterial access was obtained via the right femoral artery, a 4Fr sheath was inserted Left Coronary Artery selective angiography was performed in multiple views using a 4 Fr. JL5 catheter. Right Coronary Artery selective angiography was then performed in multiple vie ws using a 4 Fr. 3DRC catheter. Left Ventriculography was performed in LORENZ projection using a 4 Fr. P igtail catheter. LV to AO pullback pressures were then recorded. Left Coronary Artery selective angiography was performed in LORENZ Cranial view using a 4 Fr. JL5 catheter. Arterial sheath was exchanged for a 6 Fr Sheath. The FFR/iFR wire was inserted. Adenosine was the n given per protocol. Pressures and FFR/iFR were then recorded. FFR Ratio Baseline: 0.[address] Adenosine: 0.89 The FFR/iFR wire was then removed. Angiogram performed post FFR Contrast was injec taisha through the sheath and the Right Iliac and Femoral artery were assessed for possible closure jason ce. The arterial sheath was pulled and a Mynx closure device was deployed for hemostasis INTERVENTION INFORMATION LESION SITE: LAD (Proximal) Lesion Complexity: High/C Pre Stenosis: 50 % Pre intervention HÉCTOR flow: 3 PROCEDURE: FFR Post Stenosis: 50 % Post intervention HÉCTOR flow: 3 COMPLICATIONS No Complications PROCEDURE MEDICATIONS Versed 1 mg IV Versed 1 mg IV Oxygen: 2 L/min via nasal cannula Adenosine drip for FFR 14.6 ml IV @ 07/10/2019 10:30:35 Heparin 6000 unit(s) IV 07/10/2019 10:26:13 Nitro 200 mcg IC 07/10/2019 10:14:38 Nitro 200 mcg IC 07/10/2019 10:14:38 SUMMARY OF HEMODYNAMIC DATA Time AIR REST ECG 08:56:12 AO 150/74 (105) SA 09:57:45 LV 159/-15, 14 10:03:29 LV 163/-14, 14 10:03:35 LV 154/-13, 16 10:04:30 LVp 158/-12, 17 10:04:35 AOp 160/66 (102) 10:04:40 Signed By Chapincito Mg MD On 07/10/2019 10:48:09 AM Chapincito Mg MD
[2019-07-10 11:00] LABS: ACT Activated Clotting Time 274 sec (74-137)
--- NOTE | 2019-07-10 11:25 | CL.D_ITS ---
Patient Name: CATHI GONZALEZ Study Date: 07/10/2019 Performing: Alvarez Salinas MD Ht: 62.59 inches 159 cm : 1955 Wt: 110.23 lbs 50 kg Age: 64 Gender: female BSA: 1.49 PROCEDURE(S) PERFORMED UD26-FRM/COR/LV LE02-VUB, CORONARY OR GRAFT, INITIAL VESSEL CLINICAL PROFILE AND INDICATIONS Indications: Suspected CAD, Suspected CAD Heart Failure: None Stress/Imaging Date: 06/26/2019Stress Test with SPECT MPI: Indeterminant (abnormal ECG portion / negative nuclear imaging portion) Angina Classification Anginal Classification w/in 2 Weeks: No symptoms CAD Presentations: Other: shortness of breath / syncope Symptom unlikely to be ischemic. Comorbidities/Risk Factors: Hypertension Dyslipidemia CONCLUSIONS Elevated Left Ventricular End Diastolic Pressure (mild) Normal LV size, wall motion,and systolic function LVEF: by LV gram 65 % Single vessel CAD of the LAD RECOMMENDATIONS Risk factor modification Medical therapy Staged for FFR DESCRIPTION OF PROCEDURE The patient arrived to the procedure lab. The risks and benefits of the procedure as well as a full d escription of our services here and current unavailability of surgical backup were fully explained to the patient and/or their significant other prior to the catheterization. The Timeout was completed, verifying the correct patient and procedure. The patient's procedural site was prepped and draped in the usual fashion. Local anesthetic was given subcutaneously to right groin region with Lidocaine 2%. Using a modified Seldinger technique, arterial access was obtained via the right femoral artery, a 4 Fr sheath was inserted Left Coronary Artery selective angiography was performed in multiple views us ing a 4 Fr. JL5 catheter. Right Coronary Artery selective angiography was then performed in multiple views using a 4 Fr. 3DRC catheter. Left Ventriculography was performed in LORENZ projection using a 4 Fr . Pigtail catheter. LV to AO pullback pressures were then recorded. Left Coronary Artery selective angiography was performed in LORENZ Cranial view using a 4 Fr. JL5 catheter.Contrast was injec taisha through the sheath and the Right Iliac and Femoral artery were assessed for possible closure jason ce.The arterial sheath was pulled and a Mynx closure device was deployed for hemostasis CORONARY ANGIOGRAPHY DOMINANCE: Right Dominant LEFT HEART ASSESSMENT Left Ventricular Ejection Fraction: by LV Gram 65 % Normal LV wall motion Elevated Left Ventricular End Diastolic Pressure LVEDP: 14 mmHg LEFT MAIN: Angiographically normal LEFT ANTERIOR DESCENDING ARTERY: PROX LAD: smooth; eccentric; 25 - 50 % Stenosis MID LAD: s/p SP and s/p DX1: 25 % Stenosis, Mild luminal irregularities CIRCUMFLEX ARTERY: Angiographically normal RIGHT CORONARY ARTERY: Angiographically normal AORTIC ROOT: Angiographically normal COMPLICATIONS No Complications PROCEDURE MEDICATIONS Versed 1 mg IV Versed 1 mg IV Oxygen: 2 L/min via nasal cannula Adenosine drip for FFR 14.6 ml IV @ 07/10/2019 10:30:35 Heparin 6000 unit(s) IV 07/10/2019 10:26:13 Nitro 200 mcg IC 07/10/2019 10:14:38 Nitro 200 mcg IC 07/10/2019 10:14:38 SUMMARY OF HEMODYNAMIC DATA Time AIR REST ECG 08:56:12 AO 150/74 (105) SA 09:57:45 LV 159/-15, 14 10:03:29 LV 163/-14, 14 10:03:35 LV 154/-13, 16 10:04:30 LVp 158/-12, 17 10:04:35 AOp 160/66 (102) 10:04:40 Signed By Alvarez Salinas MD On 07/10/2019 11:24:40 Alvarez Salinas MD
--- NOTE | 2019-07-10 12:29 | ADUL_ITS ---
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 No obvious Pseudoaneurysm noted. Possible bleed. Interpretation Summary Abnormal bidirectional flow noted anterior to the right common femoral artery. No pseudoaneurysm noted. Possible hemorrhage Ordering Physician: Alvarez Salinas Performed By: Kraig Narvaez RVT
--- NOTE | 2019-07-10 12:49 | CT_ITS ---
STUDY: CT ABDOMEN AND PELVIS WITH CONTRAST REASON FOR EXAM: Female, 64 years old. 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 ? 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 IV 60mL Isovue-300 was administered. Sagittal and coronal images were reconstructed. Individualized dose optimization techniques were used for this CT. COMPARISON: None. FINDINGS: Minimal increase in markings at the right lung base suggestive of a linear atelectasis and/or scarring. The visualized portions of the heart are within normal limits. Normal liver. Mildly distended gallbladder lumen. Normal spleen. Normal pancreas. Normal bilateral adrenal glands. Normal right kidney. Normal left kidney. There is a small hiatal hernia. Normal small intestine. There are multiple colonic diverticula consistent with diverticulosis. The appendix is visualized and appears normal. Normal abdominal aorta. Normal inferior vena cava. There is evidence of a increased soft tissue density in the lower anterior abdominal wall and the right groin. This is in keeping with the hematoma following catheterization of the common femoral artery. At the level of the inguinal ligament, is evidence of the focal extravasation of contrast arising from the anterior medial aspect of the right common femoral artery. Increased markings are also seen in the subcutaneous tissues overlying the region of the right groin extending into the right labia majora. Distended urinary bladder. There is a small umbilical hernia containing fat. There are diffuse degenerative changes of the visualized lumbar spine. CT/Abdomen/Pelvis W IV Cont ONLY IMPRESSION: Hematoma within the soft tissues overlying the inferior aspect of the right anterior abdominal wall and region of the right groin as described with a focal area of extravasation as described. The results were communicated to the attending physician. Electronically Signed: Solomon Barry, at 13:38 EST , Service support ,
[2019-07-10 12:56] LABS: Hematocrit 38.6 % (37-47); Hemoglobin 12.5 g/dL (12.0-15.0)
[2019-07-10 13:06] LABS: Bedside Glucose 79 mg/dL (70-110)
[2019-07-10 13:11] LABS: ACT Activated Clotting Time 186 sec (74-137)
[2019-07-10] MEDS: Cefazolin 2 GM in 0.9% Normal Saline 100 ML IV (14:42)
--- NOTE | 2019-07-10 15:18 | PCM.CONS.GEN ---
Problem List (1) Postoperative hemorrhage involving circulatory system following cardiac catheterization Status: Acute Reason for Consult Date of Consultation: 07/10/19 History of Present Illness: The patient is a 64 year old F who I have been asked to see. She had a cardiac catheterization earlier today. She has had evidence of right groin hematoma. She had brief vasovagal episode. Pressures been held for 2 hours. She did receive 6000 units of heparin during the procedure. Duplex ultrasound and CT both demonstrate hemorrhage from the right groin area. Possibly coming from the external iliac. I was asked to see her and assist. After evaluation I recommended urgent exploration of the area for control of hemorrhage. Past Medical History Past Medical History (Chronic Problems): Chronic Problems (Last Reviewed 07/02/19 @ 10:29 by Yifan Orosco) Essential hypertension (Chronic) Anxiety and depression (Chronic) Syncopal episodes (Chronic) Rheumatoid arthritis (Chronic) Osteoporosis (Chronic) Tachycardia (Chronic) IBS (irritable bowel syndrome) (Chronic) GERD (gastroesophageal reflux disease) (Chronic) Medical History: Medical History (Last Reviewed 07/02/19 @ 10:29 by Yifan Orosco) Essential hypertension (Chronic) I10 Anxiety and depression (Chronic) F41.9, F32.9 Syncopal episodes (Chronic) R55 Rheumatoid arthritis (Chronic) M06.9 Osteoporosis (Chronic) M81.0 Tachycardia (Chronic) R00.0 IBS (irritable bowel syndrome) (Chronic) K58.9 GERD (gastroesophageal reflux disease) (Chronic) K21.9 Anemia (Acute) D64.9 Cervical cancer C53.9 Anxiety F41.9 Arthritis M19.90 Cataract H26.9 Frequent headaches R51 Hypoglycemia E16.2 Seasonal allergies J30.2 Bone fracture T14.8XXA Breast tumor D49.3 Pneumonia J18.9 UTI (urinary tract infection) N39.0 Allergies tramadol Allergy (Severe, Verified 07/02/19 10:28) Fast heart beat lanolin [From Phisoderm] Allergy (Mild, Verified 07/02/19 10:28) Rash petrolatum,white [From Phisoderm] Allergy (Mild, Verified 07/02/19 10:28) Rash Estrogen Patch Allergy (Unknown, Uncoded 07/02/19 10:28) Rash Home Medications: Ambulatory Orders Medication Instructions Recorded famotidine 20 mg tablet 20 mg PO QHS #30 tab 05/16/19 sertraline 25 mg tablet 25 mg PO DAILY #60 tab 05/16/19 amlodipine 2.5 mg tablet 2.5 mg PO DAILY #30 tab 06/07/19 metoprolol succinate 25 mg 25 mg PO DAILY #30 tab 06/07/19 tablet,extended release 24 hr aspirin 81 mg tablet,delayed 81 mg PO DAILY 07/02/19 release azithromycin 250 mg tablet 250 mg PO QDAY #6 tab 07/02/19 clopidogrel 75 mg tablet 75 mg PO DAILY #30 tab 07/03/19 Surgical History: Surgical History (Last Reviewed 07/02/19 @ 10:29 by Yifan Orosco) History Clip Left Breast History of D&C Z98.890 X2 History of loop electrosurgical excision procedure (LEEP) Z98.890 1994 History of tonsillectomy Z90.89 1968 History of tubal ligation Z98.51 Smoking Status: Former smoker Tobacco Use: Non-smoker Patient Problems: Active and Suspected Problems (Last Reviewed 07/02/19 @ 10:29 by Yifan Orosco) Postoperative hemorrhage involving circulatory system following cardiac catheterization (Acute) - Physical Exam Vitals/I&O's: Vital Signs Temp Pulse Resp BP Pulse Ox 99.2 F H 64 16 118/64 100 07/10/19 14:24 07/10/19 14:24 07/10/19 14:24 07/10/19 14:24 07/10/19 14:24 Oxygen Delivery Method Room Air Weight: 110 lb Body Mass Index (BMI) 19.8 Extremities: - - Exquisite tenderness right groin at the inguinal ligament, evolving ecchymosis Laboratory Results 07/10/19 10:37: Activated Clotting Time 274 H 07/10/19 12:46: Hgb 12.5, Hct 38.6 07/10/19 12:46: Blood Type O POSITIVE, Antibody Screen NEGATIVE 07/10/19 12:48: Activated Clotting Time 186 H 07/10/19 12:59: POC Glucose 79 Current Medications Acetaminophen (Tylenol) 650 mg PO Q6H PRN PRN PRN Reason: Pain Score 1-3/Temp > 100.7 F Al Hydroxide/Mg Hydroxide (Mylanta Ii) 30 ml PO Q6H PRN PRN PRN Reason: Gastric Burning Dextrose (D50w Syringe) 0 gm IV X1 PRN; Protocol PRN Reason: Hypoglycemia Glucagon () 1 mg IM .X1 PRN PRN Reason: Hypoglycemia Heparin Sodium (Beef Lung) (Heparin 500 Unit/5 Ml (100/Ml)) 500 unit IV UD PRN PRN Reason: HEPARIN FLUSH Sodium Chloride () 1,000 mls @ 150 mls/hr IV .Q6H40M HUMA Labetalol HCl (Trandate) 5 mg IV X1 PRN PRN Reason: SBP > 160 prior to sheath pull Stop: 07/12/19 10:42 Nitroglycerin (Nitrostat) 0.4 mg SUBLINGUAL Q5M PRN PRN Reason: CARDIAC/CHEST PAIN Ondansetron HCl (Zofran) 4 mg IV Q8H PRN PRN PRN Reason: NAUSEA/VOMITING Assessment/Plan All Active Problems (Last Reviewed 07/02/19 @ 10:29 by Yifan Orosco) Postoperative hemorrhage involving circulatory system following cardiac catheterization (Acute) Acute bronchitis (Acute) Dyspnea on exertion (Acute) Abnormal stress test (Acute) Anemia (Acute) I recommend urgent right groin exploration for post catheterization hemorrhage Suhas Farfan M.D., F.A.C.S.
--- NOTE | 2019-07-10 15:25 | PCM.OPRPT ---
Problem List (1) Postoperative hemorrhage involving circulatory system following cardiac catheterization Status: Acute Report of Operation Date of Procedure: 07/10/19 Pre-Operative Diagnosis: Post cardiac catheterization right groin hemorrhage Post-Operative Diagnosis: Right groin inferior epigastric artery hemorrhage Surgery/Procedure Performed:: Right groin exploration with control of inferior epigastric hemorrhage Description of Surgical Findings:: 64-year-old female had a cardiac catheterization. She developed a right groin hematoma. She became vasovagal. Pressure was held. There was possibly a 2 unit or so drop in hemoglobin. She remained exquisitely tender. Duplex and CT imaging demonstrated ongoing bleeding. I recommended direct exploration. Timeout informed consent was obtained. She was taken the operating placement table. She underwent general anesthesia and an intubation. The right groin abdomen and leg were sterilely prepped and draped. Ancef 2 g given intravenously. An oblique incision was made in the right groin sharp dissection carried down through the subcutaneous tissue the inguinal ligament was identified blunt dissection was used to identify the common femoral artery slid off slightly medially elevated the inguinal ligament and immediately came upon pulsatile bleeding. Upon further inspection was evident that this represented a anterior wall puncture of the inferior epigastric artery. I secured that with a 4-0 Prolene suture. Further exploration failed to reveal any additional ongoing bleeding. This appeared to be consistent with the imaging and the patient's presentation. I did some further sharp and blunt dissection. I did not see any additional evidence of bleeding. I did not want to disrupt the previously placed a minx device. Palpation revealed softness. The wound was closed in layers with interrupted and running 3-0 Vicryl. Skin edges approximated running septic or 4-0 Monocryl. Daysi-incisional anesthetized with 0.5% Marcaine. Telfa OpSite dressing applied. Sponge and instrument and needle counts reported surgical correct. Blood loss minimal. Specimens none. Drains none. Blood loss minimal. She tolerated procedure well was taken recovery in such condition without apparent complication. Suhas Farfan M.D., F.A.C.S. Anesthesiologist: Zach Mccollum
[2019-07-10 16:26] LABS: Hematocrit 37.5 % (37-47); Hemoglobin 11.9 g/dL (12.0-15.0); Mean Corp Hgb Conc 31.7 g/dL (32-36); Mean Corpuscular Hgb 29.1 pg (27.0-32.0); Mean Corpuscular Volume 91.7 fL (81-99); Mean Platelet Vol. 11.1 fl (6.2-12.0); Platelet Count 160 K/mm3 (150-450); RBC Distribution Width CV 12.6 % (11.6-14.6); RBC Distribution Width SD 41.7 fl (35.1-43.9); Red Blood Count 4.09 M/mm3 (4.2-5.4); White Blood Count 13.7 K/mm3 (4.4-11.0)
[2019-07-10] MEDS: Acetaminophen 325 MG Tablet 650 MG PO (17:38)
--- NOTE | 2019-07-10 18:08 | PCM.PN.CARD ---
Subjectve: The patient is awake and alert. She denies ongoing chest discomfort or difficulty breathing. Her main concern is her right inguinal area tenderness. Objective: Vital Signs Temp Pulse Resp BP Pulse Ox 98 F 69 15 94/47 L 98 07/10/19 17:32 07/10/19 17:32 07/10/19 17:32 07/10/19 17:32 07/10/19 17:32 Oxygen Delivery Method Room Air Weight: 110 lb Body Mass Index (BMI) 19.8 Intake and Output for Last 24 Hours 07/08/19 07/09/19 07/10/19 23:59 23:59 23:59 Intake Total 110 / 110 Output Total 775 / 775 Balance -665 / -665 General: Awake, Alert, Oriented x 3, Cooperative, No Acute Distress HEENT: Atraumatic, Normocephalic, PERRL, EOMI, Sclera Non Icteric Oral: Moist Mucosa Neck: Supple, Good ROM, No JVD Lungs: Clear to auscultation Cardiovascular: Regular Rhythm, Normal S1, Normal S2 Vascular: Normal Femoral Pulses Abdomen: Bowel Sounds Present, Soft, Non Tender Extremities: No edema, - - Right inguinal area: Positive ecchymoses; positive hematoma; right femoral artery pulse 2+/4+; no obvious bruit Neurological: No Focal Motor or Sensory Deficit Psych/Mental Status: Appropriate 07/10/19 12:46: Hgb 12.5, Hct 38.6 07/10/19 16:18: WBC 13.7 H, RBC 4.09 L, Hgb 11.9 L, Hct 37.5, MCV 91.7, MCH 29.1, MCHC 31.7 L, Plt Count 160, MPV 11.1 Rhythm: Sinus rhythm Cardiac catheterization: CONCLUSIONS Elevated Left Ventricular End Diastolic Pressure (mild) Normal LV size, wall motion,and systolic function LVEF: by LV gram 65 % Single vessel CAD of the LAD RECOMMENDATIONS Risk factor modification Medical therapy Staged for FFR CORONARY ANGIOGRAPHY DOMINANCE: Right Dominant LEFT HEART ASSESSMENT Left Ventricular Ejection Fraction: by LV Gram 65 % Normal LV wall motion Elevated Left Ventricular End Diastolic Pressure LVEDP: 14 mmHg LEFT MAIN: Angiographically normal LEFT ANTERIOR DESCENDING ARTERY: PROX LAD: smooth; eccentric; 25 - 50 % Stenosis MID LAD: s/p SP and s/p DX1: 25 % Stenosis, Mild luminal irregularities CIRCUMFLEX ARTERY: Angiographically normal RIGHT CORONARY ARTERY: Angiographically normal AORTIC ROOT: Angiographically normal FFR procedure: CONCLUSIONS FFR of combined proximal and mid LAD lesion with adenosine augmentation was 0.89, non-significant. Abdominal/pelvic CT scan: FINDINGS: Minimal increase in markings at the right lung base suggestive of a linear atelectasis and/or scarring. The visualized portions of the heart are within normal limits. Normal liver. Mildly distended gallbladder lumen. Normal spleen. Normal pancreas. Normal bilateral adrenal glands. Normal right kidney. Normal left kidney. There is a small hiatal hernia. Normal small intestine. There are multiple colonic diverticula consistent with diverticulosis. The appendix is visualized and appears normal. Normal abdominal aorta. Normal inferior vena cava. There is evidence of a increased soft tissue density in the lower anterior abdominal wall and the right groin. This is in keeping with the hematoma following catheterization of the common femoral artery. At the level of the inguinal ligament, is evidence of the focal extravasation of contrast arising from the anterior medial aspect of the right common femoral artery. Increased markings are also seen in the subcutaneous tissues overlying the region of the right groin extending into the right labia majora. Distended urinary bladder. There is a small umbilical hernia containing fat. There are diffuse degenerative changes of the visualized lumbar spine. CT/Abdomen/Pelvis W IV Cont ONLY IMPRESSION: Hematoma within the soft tissues overlying the inferior aspect of the right anterior abdominal wall and region of the right groin as described with a focal area of extravasation as described. The results were communicated to the attending physician. Right femoral artery ultrasound: Per report: Abnormal bidirectional flow noted anterior to the right femoral artery; no pseudoaneurysm; possible hemorrhage. Please see official report Operative report: Report of Operation Date of Procedure: 07/10/19 Pre-Operative Diagnosis: Post cardiac catheterization right groin hemorrhage Post-Operative Diagnosis: Right groin inferior epigastric artery hemorrhage Surgery/Procedure Performed:: Right groin exploration with control of inferior epigastric hemorrhage Description of Surgical Findings:: 64-year-old female had a cardiac catheterization. She developed a right groin hematoma. She became vasovagal. Pressure was held. There was possibly a 2 unit or so drop in hemoglobin. She remained exquisitely tender. Duplex and CT imaging demonstrated ongoing bleeding. I recommended direct exploration. Timeout informed consent was obtained. She was taken the operating placement table. She underwent general anesthesia and an intubation. The right groin abdomen and leg were sterilely prepped and draped. Ancef 2 g given intravenously. An oblique incision was made in the right groin sharp dissection carried down through the subcutaneous tissue the inguinal ligament was identified blunt dissection was used to identify the common femoral artery slid off slightly medially elevated the inguinal ligament and immediately came upon pulsatile bleeding. Upon further inspection was evident that this represented a anterior wall puncture of the inferior epigastric artery. I secured that with a 4-0 Prolene suture. Further exploration failed to reveal any additional ongoing bleeding. This appeared to be consistent with the imaging and the patient's presentation. I did some further sharp and blunt dissection. I did not see any additional evidence of bleeding. I did not want to disrupt the previously placed a minx device. Palpation revealed softness. The wound was closed in layers with interrupted and running 3-0 Vicryl. Skin edges approximated running septic or 4-0 Monocryl. Daysi-incisional anesthetized with 0.5% Marcaine. Telfa OpSite dressing applied. Sponge and instrument and needle counts reported surgical correct. Blood loss minimal. Specimens none. Drains none. Blood loss minimal. She tolerated procedure well was taken recovery in such condition without apparent complication. Suhas Farfan M.D., F.A.C.S. Anesthesiologist: Zach Mccollum Medical Necessity - Tobacco Use Smoking Status: Former smoker Tobacco Use: Non-smoker Assessment/Plan 1. CAD The patient underwent diagnostic cardiac catheterization based upon her ongoing symptoms and exercise tolerance test/imaging findings demonstrating a discrepancy between her ECG exercise tolerance test findings and her myocardial perfusion test findings. The cardiac catheterization demonstrated findings of CAD in the LAD distribution with no angiographically significant disease in the LCx or RCA distribution. The left ventricular wall motion and systolic function appear to be preserved with an estimated LVEF of approximately 65%. The patient subsequently underwent FFR of the LAD. The FFR findings were found to be nonsignificant. The patient was recommended for continued cardiovascular risk factor evaluation/medical management as deemed appropriate. She did not appear to require further catheter based diagnostic or therapeutic intervention. 2. Hypertension The patient does have a history of hypertension. The patient will need to continue medical management as deemed appropriate over time. 3. Inferior epigastric artery hemorrhage Following the patient's cardiac catheterization, while recovering in the post cardiac catheterization recovery area, the patient was noted to have right inguinal area discomfort and findings compatible with a right inguinal area hematoma. She underwent evaluation and care. This included manual compression during which the patient appeared to demonstrate vasovagal symptomatology with bradycardia and hypotension. During this time she was treated with IV atropine and IV fluids. She had improvement in her heart rate and blood pressures. However, there was still concerns of the patient's right inguinal area vasculature for possible hemorrhage and hematoma. She underwent laboratory evaluation with H&H that did demonstrate a decline in her hemoglobin 14.8-12.5. The patient underwent right femoral artery ultrasound with suggested a finding compatible with bidirectional flow anterior to the right femoral artery raising concern of possible hemorrhage. The patient underwent abdominal/pelvic CT scan with IV contrast. This demonstrated findings compatible with extravasation suggesting an area of hemorrhage as well as surrounding hematoma. The patient was evaluated in surgical consultation by Dr. Suhas Farfan based upon the patient's ongoing evaluation care he recommended for surgical exploration. This led to the finding of a anterior puncture of the inferior epigastric artery. He secured this vessel and subsequently explored the surrounding vasculature finding no other obvious areas of hemorrhage. The patient has subsequently been recovered from surgery and transported to the PCU for postsurgical monitoring. At the moment the patient is awake and alert. Her main concern is tenderness in her right inguinal area. Her right inguinal area does demonstrate ecchymoses and hematoma. Her right femoral pulse appears to be intact with no obvious bruit at this time. She is being followed by monitoring symptoms, her physical examination, her vital signs, and laboratory studies. She is being treated with nonsteroidal anti-inflammatory agents. Her previous antiplatelet agents are on hold as is anticoagulants at this time. Comment: The patient's case has been discussed and reviewed with the patient, her daughters, and Dr. Farfan. Dr. Farfan's assistance has been most appreciated. This note was generated using a voice recognition system and there may be incorrect words, spelling or punctuation that were not noted when reviewing the office note prior to saving.
[2019-07-10] MEDS: 0.9% Normal Saline 1,000 ML 75 ML IV (19:01)
[2019-07-10 19:46] LABS: Hematocrit 36.9 % (37-47); Hemoglobin 11.8 g/dL (12.0-15.0); Mean Corpuscular Hgb 29.4 pg (27.0-32.0); Mean Corpuscular Volume 91.8 fL (81-99); Mean Platelet Vol. 11.5 fl (6.2-12.0); Platelet Count 162 K/mm3 (150-450); RBC Distribution Width CV 12.6 % (11.6-14.6); RBC Distribution Width SD 41.9 fl (35.1-43.9); Red Blood Count 4.02 M/mm3 (4.2-5.4)
[2019-07-10] MEDS: Famotidine 20 MG Tablet PO (21:47)
[2019-07-10 23:50] LABS: Bedside Glucose 89 mg/dL (70-110)
[2019-07-11 01:45] VITALS: BP 104/42; PULSE 72; RESP 16; TEMP 37.5; O2SAT 98; BMI 19.8
[2019-07-11 03:00] VITALS: PULSE 58
[2019-07-11 05:45] VITALS: BP 119/57; PULSE 65; RESP 18; TEMP 37.1; O2SAT 98; BMI 19.8
[2019-07-11 05:51] LABS: Bedside Glucose 89 mg/dL (70-110)
--- NOTE | 2019-07-11 06:08 | PCM.PN.SRG ---
Patient Problems: Active and Suspected Problems (Last Reviewed 07/02/19 @ 10:29 by Yifan Orosco) Postoperative hemorrhage involving circulatory system following cardiac catheterization (Acute) Subjective: Pt c.o soreness right groin - Physical Exam Vitals/I&O's: Vital Signs Temp Pulse Resp BP Pulse Ox 99.5 F H 58 L 16 104/42 L 98 07/11/19 01:45 07/11/19 03:00 07/11/19 01:45 07/11/19 01:45 07/11/19 01:45 Oxygen Delivery Method Room Air Weight: 105 lb 6.095 oz Body Mass Index (BMI) 19.8 Intake and Output for Last 24 Hours 07/09/19 07/10/19 07/11/19 23:59 23:59 23:59 Intake Total 1352.5 / 1352.5 Output Total 1425 / 1425 Balance -72.5 / -72.5 Abdomen: - - ecchymosis right groin, tender Laboratory Results 07/10/19 10:37: Activated Clotting Time 274 H 07/10/19 12:46: Hgb 12.5, Hct 38.6 07/10/19 12:46: Blood Type O POSITIVE, Antibody Screen NEGATIVE 07/10/19 12:48: Activated Clotting Time 186 H 07/10/19 12:59: POC Glucose 79 07/10/19 16:18: WBC 13.7 H, RBC 4.09 L, Hgb 11.9 L, Hct 37.5, MCV 91.7, MCH 29.1, MCHC 31.7 L, RDW Std Deviation 41.7, RDW Coeff of Eben 12.6, Plt Count 160, MPV 11.1 07/10/19 19:24: WBC 14.0 H, RBC 4.02 L, Hgb 11.8 L, Hct 36.9 L, MCV 91.8, MCH 29.4, MCHC 32.0, RDW Std Deviation 41.9, RDW Coeff of Eben 12.6, Plt Count 162, MPV 11.5 07/10/19 23:36: POC Glucose 89 07/11/19 05:48: POC Glucose 89 Current Medications Acetaminophen (Tylenol) 650 mg PO Q6H PRN PRN PRN Reason: Pain Score 1-3/Temp > 100.7 F Last Admin: 07/10/19 17:38 Dose: 650 mg Documented by: Famotidine (Pepcid) 20 mg PO QHS HUMA Last Admin: 07/10/19 21:47 Dose: 20 mg Documented by: Sodium Chloride () 1,000 mls @ 75 mls/hr IV .[id number] HUMA Last Infusion: 07/10/19 23:59 Dose: 75 mls/hr Documented by: Ondansetron HCl (Zofran) 4 mg IV Q8H PRN PRN PRN Reason: NAUSEA/VOMITING Sertraline HCl (Zoloft) 25 mg PO DAILY HUMA Medical Necessity - Tobacco Use Smoking Status: Former smoker Tobacco Use: Non-smoker Assessment/Plan All Active Problems (Last Reviewed 07/02/19 @ 10:29 by Yifan rOosco) Postoperative hemorrhage involving circulatory system following cardiac catheterization (Acute) Acute bronchitis (Acute) Dyspnea on exertion (Acute) Abnormal stress test (Acute) Anemia (Acute) Will mobilize and plan discharge later today
--- NOTE | 2019-07-11 06:12 | DCINST_ITS ---
Discharge Diet: Light diet - advance as tolerated - if you have questions about your diet instructions, please talk to you doctor. Discharge Activity: May Not Drive - for 1 week or while taking narcotic pain medicine., May Shower May shower in (days): 1 Lifting Restrictions: 10 pounds Call your doctor if your incision/area has: Continuous Slow Oozing, Sudden Increased Bleeding, Increased Pain/ Swelling, Increased Redness, Foul Smelling Discharge Call your doctor if you observe: Fever of 101 or Higher Suture Line Care: Avoid Pulling/Pushing, Avoid Pinching/Bending Additional Dressing/Incision Instructions:: Change or remove dressing in 3 days. Leave steri-strips in place for 1 week. Allergies/Adverse Reactions: Allergies tramadol Allergy (Severe, Verified 07/02/19 10:28) Fast heart beat lanolin [From Phisoderm] Allergy (Mild, Verified 07/02/19 10:28) Rash petrolatum,white [From Phisoderm] Allergy (Mild, Verified 07/02/19 10:28) Rash Estrogen Patch Allergy (Unknown, Uncoded 07/02/19 10:28) Rash Medications to take at Discharge famotidine 20 mg tablet 20 mg PO QHS #30 tab 05/16/19 sertraline 25 mg tablet 25 mg PO DAILY #60 tab 05/16/19 amlodipine 2.5 mg tablet 2.5 mg PO DAILY #30 tab 06/07/19 metoprolol succinate 25 mg tablet,extended release 24 hr 25 mg PO DAILY #30 tab 06/07/19 aspirin 81 mg tablet,delayed release 81 mg PO DAILY 07/02/19 azithromycin 250 mg tablet 250 mg PO QDAY #6 tab 07/02/19 atorvastatin 20 mg tablet 20 mg PO QHS 07/10/19 Primary Care Physician: Alexa Schwartz MD [Primary Care Provider] - Test Results: Test results from this visit will be discussed in further detail at your follow- up appointment, if applicable. Please Follow Up With: Suhas Farfan MD - [phone] When: Call to make an appointment to be seen in about 10 days.
[2019-07-11 07:13] VITALS: PULSE 57
[2019-07-11 07:26] LABS: Absolute Neutrophil Count 6.7 X10^3/uL (2.0-7.7); Basophil# 0.02 X10^3/uL; Basophil% 0.2 % (0-1); Eosinophil# 0.03 X10^3/uL; Eosinophils% 0.3 % (0-5); Hematocrit 32.5 % (37-47); Hemoglobin 10.3 g/dL (12.0-15.0); Lymphocyte % 17.3 % (19-41); Mean Corp Hgb Conc 31.7 g/dL (32-36); Mean Corpuscular Hgb 28.9 pg (27.0-32.0); Mean Platelet Vol. 11.9 fl (6.2-12.0); Monocyte# 0.85 X10^3/uL; Monocyte% 9.2 % (0-10); NRBC Flagged by Analyzer 0 % (0-5); Neutrophil # 6.73 X10^3/uL (2.7-7.7); Neutrophil % 72.8 % (47-70); Platelet Count 142 K/mm3 (150-450); RBC Distribution Width CV 12.9 % (11.6-14.6); RBC Distribution Width SD 42.8 fl (35.1-43.9); Red Blood Count 3.57 M/mm3 (4.2-5.4); White Blood Count 9.3 K/mm3 (4.4-11.0)
[2019-07-11 07:34] LABS: International Normalized Ratio 1.1
[2019-07-11 07:45] LABS: ALB/GLOB Ratio 1.1 RATIO (0.9-2.4); AST(SGOT) 14 U/L (15-37); Alanine Aminotransfer ALT/SGPT 16 U/L (13-56); Albumin, Serum 2.8 g/dL (3.2-5.0); Alkaline Phosphatase 67 U/L (45-117); Anion Gap 3 (5-15); BUN 6 mg/dL (7-18); BUN/Creat Ratio 7.4 RATIO (10-20); Calcium,Total 8.2 mg/dL (8.5-10.1); Chloride 117 mmol/L (98-107); Creatinine, Serum 0.81 mg/dL (0.55-1.02); EST Glomerular Filtration Rate 76 mL/min (>60); Est Glom Filt Rate - Afr Amer 92 mL/min (>60); Estimated Creatinine Clearance 52.95 ml/min; Globulin 2.6 g/dL (2.2-4.2); Glucose 96 mg/dL (74-106); Potassium 3.8 mmol/L (3.5-5.1); Protein, Total 5.4 g/dL (6.4-8.2); Sodium Level 147 mmol/L (136-145)
[2019-07-11 08:08] VITALS: O2SAT 97
--- NOTE | 2019-07-11 09:39 | PCM.DC ---
- Discharge Diagnoses Current Active Problems: Current Active and Chronic Problems (Last Reviewed 07/02/19 @ 10:29 by Yifan Orosco) Postoperative hemorrhage involving circulatory system following cardiac catheterization (Acute) Reason(s) for Visit for Discharge Instructions: Abnormal stress test for diagnostic cardiac catheterization You will use the following diet at home:: Cardiac Your food should be the consistency of: Regular Discharge Activity: May Not Drive - for 1 week or while taking narcotic pain medicine., May Shower May shower in (days): 1 Call your doctor if your incision/area has: Continuous Slow Oozing, Sudden Increased Bleeding, Increased Pain/ Swelling, Increased Redness, Foul Smelling Discharge Call your doctor if you observe: Fever of 101 or Higher Suture Line Care: Avoid Pulling/Pushing, Avoid Pinching/Bending Additional Dressing/Incision Instructions:: Change or remove dressing in 3 days. Leave steri-strips in place for 1 week. Allergies/Adverse Reactions: Allergies tramadol Allergy (Severe, Verified 07/02/19 10:28) Fast heart beat lanolin [From Phisoderm] Allergy (Mild, Verified 07/02/19 10:28) Rash petrolatum,white [From Phisoderm] Allergy (Mild, Verified 07/02/19 10:28) Rash Estrogen Patch Allergy (Unknown, Uncoded 07/02/19 10:28) Rash Medications to take at Discharge famotidine 20 mg tablet 20 mg PO QHS #30 tab 05/16/19 sertraline 25 mg tablet 25 mg PO DAILY #60 tab 05/16/19 amlodipine 2.5 mg tablet 2.5 mg PO DAILY #30 tab 06/07/19 metoprolol succinate 25 mg tablet,extended release 24 hr 25 mg PO DAILY #30 tab 06/07/19 aspirin 81 mg tablet,delayed release 81 mg PO DAILY 07/02/19 azithromycin 250 mg tablet 250 mg PO QDAY #6 tab 07/02/19 atorvastatin 20 mg tablet 20 mg PO QHS 07/10/19 Primary Care Physician: Alexa Schwartz MD [Primary Care Provider] - Test Results: Test results from this visit will be discussed in further detail at your follow-up appointment, if applicable. Please Follow Up With: Suhas Farfan MD - [phone] When: Call to make an appointment to be seen in about 10 days. Please Follow Up With: Alvarez Salinas MD When: [facility] office to arrange an outpatient appointment Proposed Discharge Date: 07/11/19
--- NOTE | 2019-07-11 09:41 | DS.PCM_ITS ---
Discharge Date and Diagnosis - Problem List Patient Problems: Active and Suspected Problems (Last Reviewed 07/02/19 @ 10:29 by Yifan Orosco) Postoperative hemorrhage involving circulatory system following cardiac catheterization (Acute) Date of Admission: 07/10/19 Date of Discharge: 07/11/19 - Primary Discharge Diagnosis Active and Suspected Problems (Last Reviewed 07/02/19 @ 10:29 by Yifan Orosco) Postoperative hemorrhage involving circulatory system following cardiac catheterization (Acute) - Secondary Discharge Diagnosis Chronic Problems (Last Reviewed 07/02/19 @ 10:29 by Yifan Orosco) Essential hypertension (Chronic) Anxiety and depression (Chronic) Syncopal episodes (Chronic) Rheumatoid arthritis (Chronic) Osteoporosis (Chronic) Tachycardia (Chronic) IBS (irritable bowel syndrome) (Chronic) GERD (gastroesophageal reflux disease) (Chronic) Hospital Course and Treatment Operations: - - Right inguinal area exploration and inferior epigastric artery associated hemorrhage control (please see operative note) Procedures: Cardiac catheterization Summary of Care Provided: The patient is a 64 year old white female who presented to [facility], based upon concerns of an abnormal exercise tolerance test/imaging study, for outpatient diagnostic cardiac catheterization. The patient underwent outpatient diagnostic cardiac catheterization and subsequent LAD FFR. The patient was in the cardiac catheterization recovery area. There was subsequent concerns of a right inguinal area hematoma and an associated vasovagal mediated type event with bradycardia and hypotension. The patient was evaluated and treated with manual compression and IV atropine and IV fluids. The patient's course led to further diagnostic studies with laboratory studies, a right femoral artery area ultrasound, and an abdominal/pelvic CT scan. The results of the studies is suggested findings compatible with hemorrhage and hematoma. The patient was evaluated by Dr. Suhas Farfan of surgery. He performed a right inguinal area exploration and found that an inferior epigastric artery had an anterior puncture which he secured. According to his operative note there was no other vascular related injury or hemorrhage. The patient recuperated in the PCU overnight. She appeared with out any acute cardiovascular symptoms. She did have areas of ecchymoses in her right inguinal area with associated tenderness. She remained hemodynamically stable. Her H&H was followed which did decline. It was felt this was a combination of her hemorrhage/hematoma and IV fluids/volume overload. She did not require PRBCs. She had been up and ambulating without obvious adverse event. The consensus was that the patient could be released home for continued outpatient cardiovascular follow-up and surgery follow-up. The patient's case was discussed at length with the patient and her daughters and they were agreeable to this approach. [] Patient Problems: Active and Suspected Problems (Last Reviewed 07/02/19 @ 10:29 by Yifan Orosco) Postoperative hemorrhage involving circulatory system following cardiac catheterization (Acute) Subjective: Patient is awake and alert with no acute complaints other than her right inguina l area tenderness to palpation. - Physical Exam Vitals/I&O's: Vital Signs Temp Pulse Resp BP Pulse Ox 98.7 F 57 L 18 119/57 L 97 07/11/19 05:45 07/11/19 07:13 07/11/19 05:45 07/11/19 05:45 07/11/19 08:08 Oxygen Delivery Method Room Air Weight: 105 lb 6.095 oz Body Mass Index (BMI) 19.8 Intake and Output for Last 24 Hours 07/09/19 07/10/19 07/11/19 23:59 23:59 23:59 Intake Total 1352.5 / 1352.5 767.5 / 767.5 Output Total 1425 / 1425 800 / 800 Balance -72.5 / -72.5 -32.5 / -32.5 General: Alert, Oriented x3, Cooperative, No apparent distress HEENT: Atraumatic, PERRLA, EOMI, Normocephalic Oral: Moist Mucosa Neck: Supple, No JVD Lungs: Clear to auscultation Cardiovascular: Regular rate, Normal S1, Normal S2 Abdomen: Bowel Sounds Present, Soft, - - Right lower quadrant area: Positive tenderness to palpation Extremities: No edema, - - Right inguinal area: Positive ecchymoses; positive hematoma; femoral artery pulse 2+/4+; no obvious bruits Musculoskeletal: Tenderness - Right inguinal area Neurological: Neuro grossly intact Psych/Mental Status: Appropriate Laboratory Results 07/10/19 10:37: Activated Clotting Time 274 H 07/10/19 12:46: Hgb 12.5, Hct 38.6 07/10/19 12:46: Blood Type O POSITIVE, Antibody Screen NEGATIVE 07/10/19 12:48: Activated Clotting Time 186 H 07/10/19 12:59: POC Glucose 79 07/10/19 16:18: WBC 13.7 H, RBC 4.09 L, Hgb 11.9 L, Hct 37.5, MCV 91.7, MCH 29.1, MCHC 31.7 L, RDW Std Deviation 41.7, RDW Coeff of Eben 12.6, Plt Count 160, MPV 11.1 07/10/19 19:24: WBC 14.0 H, RBC 4.02 L, Hgb 11.8 L, Hct 36.9 L, MCV 91.8, MCH 29.4, MCHC 32.0, RDW Std Deviation 41.9, RDW Coeff of Eben 12.6, Plt Count 162, MPV 11.5 07/10/19 23:36: POC Glucose 89 07/11/19 05:48: POC Glucose 89 07/11/19 06:55: WBC 9.3, RBC 3.57 L, Hgb 10.3 L, Hct 32.5 L, MCV 91.0, MCH 28.9, MCHC 31.7 L, RDW Std Deviation 42.8, RDW Coeff of Eben 12.9, Plt Count 142 L, MPV 11.9, Immature Gran % (Auto) 0.200, Neut % (Auto) 72.8 H, Lymph % (Auto) 17.3 L, [place] % (Auto) 9.2, Eos % (Auto) 0.3, Baso % (Auto) 0.2, Absolute Neuts (auto) 6.7, Absolute Lymphs (auto) 1.60, Nucleated RBC % 0 07/11/19 06:55: PT 14.0, INR 1.1 07/11/19 06:55: Sodium 147 H, Potassium 3.8, Chloride 117 H, Carbon Dioxide 27.0, Anion Gap 3 L, BUN 6 L, Creatinine 0.81, Estim Creat Clear Calc 52.95, Est GFR (MDRD) Af Amer 92, Est GFR (MDRD) Non-Af 76, BUN/Creatinine Ratio 7.4 L, Glucose 96, Calcium 8.2 L, Magnesium 2.0, Total Bilirubin 0.50, AST 14 L, ALT 16, Alkaline Phosphatase 67, Total Protein 5.4 L, Albumin 2.8 L, Globulin 2.6, Albumin/Globulin Ratio 1.1 Current Medications Acetaminophen (Tylenol) 650 mg PO Q6H PRN PRN PRN Reason: Pain Score 1-3/Temp > 100.7 F Last Admin: 07/10/19 17:38 Dose: 650 mg Documented by: Famotidine (Pepcid) 20 mg PO QHS [facility] Last Admin: 07/10/19 21:47 Dose: 20 mg Documented by: Sodium Chloride () 1,000 mls @ 75 mls/hr IV .[id number] [facility] Last Infusion: 07/11/19 08:40 Dose: Infused Documented by: Ondansetron HCl (Zofran) 4 mg IV Q8H PRN PRN PRN Reason: NAUSEA/VOMITING Sertraline HCl (Zoloft) 25 mg PO DAILY [facility] Discharge Diet: Light diet - advance as tolerated - if you have questions about your diet instructions, please talk to you doctor. Discharge Activity: May Not Drive - for 1 week or while taking narcotic pain medicine., May Shower May shower in (days): 1 Call your doctor if your incision/area has: Continuous Slow Oozing, Sudden Increased Bleeding, Increased Pain/ Swelling, Increased Redness, Foul Smelling Discharge Call your doctor if you observe: Fever of 101 or Higher Suture Line Care: Avoid Pulling/Pushing, Avoid Pinching/Bending Additional Dressing/Incision Instructions:: Change or remove dressing in 3 days. Leave steri-strips in place for 1 week. Home Medications: Medications to take at Discharge famotidine 20 mg tablet 20 mg PO QHS #30 tab 05/16/19 sertraline 25 mg tablet 25 mg PO DAILY #60 tab 05/16/19 amlodipine 2.5 mg tablet 2.5 mg PO DAILY #30 tab 06/07/19 metoprolol succinate 25 mg tablet,extended release 24 hr 25 mg PO DAILY #30 tab 06/07/19 aspirin 81 mg tablet,delayed release 81 mg PO DAILY 07/02/19 azithromycin 250 mg tablet 250 mg PO QDAY #6 tab 07/02/19 atorvastatin 20 mg tablet 20 mg PO QHS 07/10/19 Primary Care Physician: Alexa Schwartz MD [Primary Care Provider] - Please Follow Up With: Suhas Farfan MD - [phone] When: Call to make an appointment to be seen in about 10 days. Please Follow Up With: Alvarez Salinas MD When: [facility] office to arrange an outpatient appointment Disposition: Home Minutes spent on discharge:: 45 Patient Condition:: Stable Medical Necessity - Tobacco Use Smoking Status: Former smoker Tobacco Use: Non-smoker Meaningful Use Info Meaningful Use Diagnoses (Choose all that apply): None applicable
--- NOTE | 2019-07-11 10:27 | PHA.DC.MR ---
Pharmacy Service has performed discharge medication reconciliation for this patient. Home Medications famotidine 20 mg tablet 20 mg PO QHS #30 tab 05/16/19 sertraline 25 mg tablet 25 mg PO DAILY #60 tab 05/16/19 amlodipine 2.5 mg tablet 2.5 mg PO DAILY #30 tab 06/07/19 metoprolol succinate 25 mg tablet,extended release 24 hr 25 mg PO DAILY #30 tab 06/07/19 aspirin 81 mg tablet,delayed release 81 mg PO DAILY 07/02/19 azithromycin 250 mg tablet 250 mg PO QDAY #6 tab 07/02/19 atorvastatin 20 mg tablet 20 mg PO QHS 07/10/19 The patient's discharge medication list was reviewed for discrepancies and discrepancies were resolved.
[2019-07-11 10:44] VITALS: BP 107/53; PULSE 69; RESP 15; TEMP 37.1; O2SAT 98
== END 2019-07-11 06:10 | disposition home or self-care (01) ==
LOC: PCU 17:13
PROVIDERS: Surgery; Admitting Provider Internal Medicine Cardiovascular Disease; Family Provider Internal Medicine; PCP Internal Medicine; Referring Provider Internal Medicine Cardiovascular Disease; Visit Provider Internal Medicine Cardiovascular Disease
PROC: (CPT 35840; principal; 2019-07-10 17:05)
DX: R94.39 Abnormal result of other cardiovascular function study (principal); I97.51 Accidental puncture and laceration of a circulatory system organ or structure during a circulatory system procedure; Y84.0 Cardiac catheterization as the cause of abnormal reaction of the patient, or of later complication, without mention of misadventure at the time of the procedure; I25.10 Atherosclerotic heart disease of native coronary artery without angina pectoris; R00.0 Tachycardia, unspecified; R55 Syncope and collapse; R00.2 Palpitations; R06.02 Shortness of breath; E78.5 Hyperlipidemia, unspecified; I10 Essential (primary) hypertension; K21.9 Gastro-esophageal reflux disease without esophagitis; M19.90 Unspecified osteoarthritis, unspecified site; F41.9 Anxiety disorder, unspecified; F32.9 Major depressive disorder, single episode, unspecified; K58.9 Irritable bowel syndrome, unspecified; M06.9 Rheumatoid arthritis, unspecified; Z79.899 Other long term (current) drug therapy; Z79.82 Long term (current) use of aspirin; Z79.02 Long term (current) use of antithrombotics/antiplatelets; Z87.891 Personal history of nicotine dependence
CPT/HCPCS: 00770; 35840; 36415; 74177; 80048; 80053; 82962; 83735; 85014; 85018; 85025; 85027; 85347; 85610; 85730; 86850; 86900; 86901; 93458; 93571; 93926; 94762; 96361; 96365; 99152; 99153; 99218; 99251; C1760; J0153; J7030; J7040; Q9967; C1769; C1887; C1894; G0378; G0379; G0463; J2405

== ENCOUNTER → 2019-07-13 10:40 | Outpatient (CLI) | payer MEDICAID, SELFPAY ==
[2019-07-10 14:24] VITALS: BMI 19.8
[2019-07-13 11:41] LABS: Hematocrit 35.6 % (37-47); Hemoglobin 11.2 g/dL (12.0-15.0)
== END ==
PROVIDERS: PCP Internal Medicine; Referring Provider Internal Medicine Cardiovascular Disease; Visit Provider Internal Medicine Cardiovascular Disease
DX: I97.610 Postprocedural hemorrhage of a circulatory system organ or structure following a cardiac catheterization (principal)
CPT/HCPCS: 36415; 85014; 85018

== ENCOUNTER → 2019-07-23 08:33 | Outpatient (CLI) | payer MEDICAID, SELFPAY ==
[2019-07-17 15:26] VITALS: BMI 19.7
[2019-07-23 09:50] LABS: Hematocrit 39.9 % (37-47); Hemoglobin 12.3 g/dL (12.0-15.0)
== END ==
PROVIDERS: PCP Internal Medicine; Referring Provider Internal Medicine Cardiovascular Disease; Visit Provider Internal Medicine Cardiovascular Disease
DX: I97.610 Postprocedural hemorrhage of a circulatory system organ or structure following a cardiac catheterization (principal)
CPT/HCPCS: 36415; 85014; 85018

== ENCOUNTER → 2019-08-28 08:11 | Outpatient (CLI) | payer MEDICAID, SELFPAY ==
[2019-08-28 08:52] LABS: AST(SGOT) 20 U/L (15-37); Alanine Aminotransfer ALT/SGPT 33 U/L (13-56); Albumin, Serum 3.9 g/dL (3.2-5.0); Alkaline Phosphatase 121 U/L (45-117); Bilirubin, Direct 0.14 mg/dL (0.00-0.30); Cholesterol 136 mg/dL (200); Globulin 3.6 g/dL (2.2-4.2); High Density Lipoprotein 56 mg/dL; Protein, Total 7.5 g/dL (6.4-8.2); Triglycerides 130 mg/dL; Very Low Density Lipoprotein 26 mg/dL (5-40)
== END ==
PROVIDERS: PCP Internal Medicine; Referring Provider Internal Medicine Cardiovascular Disease; Visit Provider Internal Medicine Cardiovascular Disease
DX: E78.5 Hyperlipidemia, unspecified (principal)
CPT/HCPCS: 36415; 80061; 80076

== ENCOUNTER → 2019-09-11 | Outpatient (CLI) | payer MEDICAID, SELFPAY ==
[2019-07-25 13:31] VITALS: BMI 19.7
--- NOTE | 2019-09-11 12:14 | BI_ITS ---
MAMMOGRAPHY - BILATERAL SCREENING REASON FOR EXAM: Female, 64 years old. Routine annual screening examination. PERTINENT HISTORY: Sister with breast cancer. TECHNIQUE: Digital bilateral breast adriana (3D mammographic acquisition) in the CC and MLO projections. 2-D mediolateral oblique (MLO) and craniocaudad (CC) views of both breasts were obtained. CAD: Full Field Digital Mammography with Computer Added Detection was performed. COMPARISON: Comparison is made with prior study dated August 30, 2018. FINDINGS: Breast Composition: The breasts are heterogeneously dense, which may obscure small masses. There are no dominant masses or suspicious calcifications. No other significant abnormalities are identified. There has been no significant change since the prior study. BI/SCREEN MAMM (CAD) W/ADRIANA BILAT IMPRESSION: Stable bilateral screening mammogram. Yearly follow-up mammogram recommended. (A) ASSESSMENT CATEGORY: BIRADS Category 1: Negative. A letter regarding these results will be sent to the patient by the facility within 30 days. Approximately 10% of breast cancers are not detected by mammography. A normal mammogram should not delay biopsy of a clinically suspicious abnormality. [id number] Electronically Signed: Solomon Barry, at 14:25 EDT , Service support ,
== END | disposition home or self-care (01) ==
LOC: OPBI 12:14
PROVIDERS: PCP Internal Medicine; Referring Provider Internal Medicine; Visit Provider Internal Medicine
DX: Z12.31 Encounter for screening mammogram for malignant neoplasm of breast (principal)
CPT/HCPCS: 77063; 77067

== ENCOUNTER → 2019-09-17 12:04 | Outpatient (CLI) | payer MEDICAID, SELFPAY ==
[2019-08-16 12:42] VITALS: BMI 20.2
[2019-09-17 12:23] VITALS: PULSE 59; PULSE 63; PULSE 68; PULSE 70; PULSE 75; PULSE 76; PULSE 80; O2SAT 93; O2SAT 96; O2SAT 98
--- NOTE | 2019-09-18 10:24 | PCM.PSN.6M ---
PSN 6 Minute Walk Test - 6 Minute Walk Test 6 Minute Walk Test: 6 Minute Walk Test PSN:6-Minute Walk Test Start: 09/17/19 12:22 Freq: Status: Active Protocol: RESP.6MINW Document 09/17/19 12:23 VENITA (Rec: 09/17/19 12:24 VENITA [id number]) 6 Minute Walk Test Date Performed 09/17/19 Time Performed 12:30 Height 5 ft 2 in Weight: 110 lb Weight in Pounds 110.[address]: Tomy Mena Assistive device used: None Pre-test Oxygen Delivery Method Room Air Pulse Ox (%) 98 Pulse Rate (60-100 beats/min) 63 Dyspnea Maricruz Scale (0-10) 0 Exertion Maricruz Scale (6-20) 6 1st minute Oxygen Delivery Method Room Air Pulse Ox (%) 98 Pulse Rate (60-100 beats/min) 70 2nd minute Oxygen Delivery Method Room Air Pulse Ox (%) 93 Pulse Rate (60-100 beats/min) 59 L 3rd minute Oxygen Delivery Method Room Air Pulse Ox (%) 96 Pulse Rate (60-100 beats/min) 68 4th minute Oxygen Delivery Method Room Air Pulse Ox (%) 96 Pulse Rate (60-100 beats/min) 76 5th minute Oxygen Delivery Method Room Air Pulse Ox (%) 98 Pulse Rate (60-100 beats/min) 80 6th minute Oxygen Delivery Method Room Air Pulse Ox (%) 98 Pulse Rate (60-100 beats/min) 75 Dyspnea Mar[place]ruz Scale (0-10) 1 Exertion Mar[place]ruz Scale (6-20) 11 Post-test Oxygen Delivery Method Room Air Pulse Ox (%) 98 Pulse Rate (60-100 beats/min) 68 Full Laps Walked 18 Partial Lap, Number of Tiles Walked 40 Total Distance Walked (ft) 1102 - Interpretation Interpretation: The patient ambulated 1102 feet over the course of 6 minutes beginning on room air without assistive devices or breaks. Pretesting oxygen saturation was noted to be 98% on room air. With ambulation, the vikki oxygen saturation was 93%. This represents a significant exertional oxygen desaturation. - Recommendations Recommendations: There is no indication for the use of supplemental oxygen at this time.
== END ==
PROVIDERS: PCP Internal Medicine; Referring Provider Internal Medicine Critical Care Medicine; Visit Provider Internal Medicine Critical Care Medicine
DX: R06.09 Other forms of dyspnea (principal)
CPT/HCPCS: 94618

== ENCOUNTER → 2019-09-20 13:08 | Outpatient (CLI) | payer MEDICAID, SELFPAY ==
[2019-08-16 12:42] VITALS: BMI 20.2
--- NOTE | 2019-09-21 11:16 | PFT ---
INTRODUCTION: The patient is a 64-year-old female that presents for pulmonary function studies secondary to a diagnosis of dyspnea on exertion. Respiratory therapy reports good patient effort. Bronchodilators were used during testing. INTERPRETATION: Forced expiration spirometry demonstrates no evidence of a large airways obstructive ventilatory defect. There was no significant response to aerosolized bronchodilators. Spirograms are of good quality and plateau normally. The respiratory flow volume loop appears normal. Body plus tomography was performed and reveals lung volumes to be within normal limits. Diffusing capacity by single breath CO is also within normal limits. IMPRESSION: Grossly normal pulmonary function studies.
== END ==
PROVIDERS: PCP Internal Medicine; Referring Provider Internal Medicine Critical Care Medicine; Visit Provider Internal Medicine Critical Care Medicine
DX: R06.09 Other forms of dyspnea (principal)
CPT/HCPCS: 94010; 94060; 94726; 94729

== ENCOUNTER → 2020-04-09 13:54 | Outpatient (CLI) | payer MEDICAID, SELFPAY ==
[2020-01-10 14:10] VITALS: BMI 21.5
[2020-04-09 15:24] LABS: Absolute Lymphocyte Count 2.56 X10^3/uL (0.83-4.51); Absolute Neutrophil Count 3.8 X10^3/uL (2.0-7.7); Basophil# 0.04 X10^3/uL; Basophil% 0.5 % (0-1); Eosinophil# 0.14 X10^3/uL; Eosinophils% 1.9 % (0-5); Hemoglobin 13.3 g/dL (12.0-15.0); Lymphocyte # 2.56 X10^3/ul (4.0); Mean Corp Hgb Conc 31.7 g/dL (32-36); Mean Corpuscular Hgb 28.9 pg (27.0-32.0); Mean Corpuscular Volume 91.1 fL (81-99); Monocyte# 0.75 X10^3/uL; Monocyte% 10.2 % (0-10); NRBC Flagged by Analyzer 0 % (0-5); Platelet Count 205 K/mm3 (150-450); RBC Distribution Width CV 12.9 % (11.6-14.6); RBC Distribution Width SD 42.4 fl (35.1-43.9); Red Blood Count 4.61 M/mm3 (4.2-5.4); White Blood Count 7.3 K/mm3 (4.4-11.0)
[2020-04-09 15:39] LABS: ALB/GLOB Ratio 1.1 RATIO (0.9-2.4); AST(SGOT) 20 U/L (15-37); Alanine Aminotransfer ALT/SGPT 29 U/L (13-56); Albumin, Serum 3.9 g/dL (3.2-5.0); Alkaline Phosphatase 136 U/L (45-117); Anion Gap 5 (5-15); BUN 7 mg/dL (7-18); BUN/Creat Ratio 7.8 RATIO (10-20); Calcium,Total 9.5 mg/dL (8.5-10.1); Chloride 108 mmol/L (98-107); EST Glomerular Filtration Rate 67 mL/min (>60); Est Glom Filt Rate - Afr Amer 81 mL/min (>60); Globulin 3.5 g/dL (2.2-4.2); Glucose 84 mg/dL (74-106); Potassium 3.8 mmol/L (3.5-5.1); Protein, Total 7.4 g/dL (6.4-8.2); Sodium Level 142 mmol/L (136-145)
== END ==
PROVIDERS: PCP Internal Medicine; Referring Provider Internal Medicine; Visit Provider Internal Medicine
DX: R53.81 Other malaise (principal); R53.83 Other fatigue
CPT/HCPCS: 36415; 80053; 85025

== ENCOUNTER → 2020-08-05 13:56 | Outpatient (CLI) | payer MEDICARE, MEDICAID, SELFPAY ==
[2020-08-05 13:21] VITALS: BMI 23.3
== END ==
PROVIDERS: PCP Internal Medicine; Referring Provider Internal Medicine; Visit Provider Internal Medicine
DX: M81.0 Age-related osteoporosis without current pathological fracture (principal)
CPT/HCPCS: 36415; 82306

== ENCOUNTER → 2020-09-16 12:44 | Outpatient (CLI) | payer MEDICARE, MEDICAID, SELFPAY ==
[2020-08-05 13:21] VITALS: BMI 23.3
--- NOTE | 2020-09-16 12:47 | BI_ITS ---
MAMMOGRAPHY - BILATERAL SCREENING REASON FOR EXAM: Female, 65 years old. Routine annual screening examination. PERTINENT HISTORY: Sister with breast cancer. Remote right needle breast biopsy. TECHNIQUE: Digital bilateral breast adriana (3D mammographic acquisition) in the CC and MLO projections. 2-D mediolateral oblique (MLO) and craniocaudad (CC) views of both breasts were obtained. CAD: Full Field Digital Mammography with Computer Added Detection was performed. COMPARISON: Comparison is made with prior examination of 09/11/2019 FINDINGS: Breast Composition: The breasts are heterogeneously dense, which may obscure small masses. There are no dominant masses or suspicious calcifications. A tissue clip marker is seen in the central slightly lateral aspect of the left breast. No other significant abnormalities are identified. There has been no significant change since the prior study. BI/SCRN MAMM (CAD)W/ADRIANA BILAT IMPRESSION: Stable bilateral screening mammogram. Yearly follow-up mammogram recommended. (A) ASSESSMENT CATEGORY: BIRADS Category 2: Benign. A letter regarding these results will be sent to the patient by the facility within 30 days. Approximately 10% of breast cancers are not detected by mammography. A normal mammogram should not delay biopsy of a clinically suspicious abnormality. [id number] Electronically Signed: Solomon Barry MD at 13:36 EDT , Service support ,
--- NOTE | 2020-09-16 12:50 | BD_ITS ---
STUDY: DUAL ENERGY X-RAY ABSORPTIOMETRY / DXA REASON FOR EXAM: Female, 65 years old. Osteoporosis TECHNIQUE: Bone Mineral Density (BMD) measurements of lumbar spine and bilateral hips were obtained. COMPARISON: None. FINDINGS: Lumbar Spine (L1-L4): g/cm2 (0.981) / T-score (-1.7) / Z-score (-0.1) Findings are suggestive of osteopenia with a moderate fracture risk. Left Femur Total: g/cm2 (0.672) / T-score (-2.7) / Z-score (-1.5) Left Femoral Neck: g/cm2 (0.614) / T-score (-3.0) / Z-score (-1.6) Right Femur Total: g/cm2 (0.669) / T-score (-2.7) / Z-score (-1.5) Right Femoral Neck: g/cm2 (0.607) / T-score (-3.1) / Z-score (-1.6) BD/Dexa Bone Density Study IMPRESSION: The patient is considered osteoporotic as outlined below according to World [place] Organization (WHO) criteria with a high fracture risk. Reference Information: The T-score is the number of standard deviations above or below the standard which is normal for young adults at their peak bone mineral density. The World Health Organization (WHO) interprets the T-scores as follows: Above -1 Normal bone density Between -1 and -2.5 Osteopenia Equal to / or below -2.5 Osteoporosis As a practical clinical guideline, osteopenia may be graded as follows: Mild -1 through -1.5 Moderate -1.6 through -2.0 Severe -2.1 through -2.4 The Z-score is the number of standard deviations above or below age-matched controls. A Z-score of less than -1.5 would be considered abnormal. References: 1. NIH Osteoporosis and Related Bone Diseases www osteo.org 2. International Society for Clinical Densitometry www iscd.org 3. National Osteoporosis Foundation www nof.org Electronically Signed: Solomon Barry MD at 14:44 EDT , Service support ,
== END ==
PROVIDERS: PCP Internal Medicine; Referring Provider Internal Medicine; Visit Provider Internal Medicine
DX: Z12.31 Encounter for screening mammogram for malignant neoplasm of breast (principal); M81.0 Age-related osteoporosis without current pathological fracture
CPT/HCPCS: 77063; 77067; 77080

== ENCOUNTER → 2020-11-10 06:24 | Outpatient (CLI) | payer MEDICARE, MEDICAID, SELFPAY ==
[2020-11-04 13:33] VITALS: BMI 24.3
[2020-11-10 07:58] LABS: AST(SGOT) 18 U/L (15-37); Alanine Aminotransfer ALT/SGPT 23 U/L (13-56); Albumin, Serum 3.5 g/dL (3.2-5.0); Alkaline Phosphatase 137 U/L (45-117); Bilirubin, Direct 0.14 mg/dL (0.00-0.30); Cholesterol 118 mg/dL (200); Globulin 3.3 g/dL (2.2-4.2); High Density Lipoprotein 48 mg/dL; Protein, Total 6.8 g/dL (6.4-8.2); Triglycerides 124 mg/dL; Very Low Density Lipoprotein 25 mg/dL (5-40)
== END ==
PROVIDERS: PCP Internal Medicine; Referring Provider Internal Medicine Cardiovascular Disease; Visit Provider Internal Medicine Cardiovascular Disease
DX: E78.5 Hyperlipidemia, unspecified (principal)
CPT/HCPCS: 36415; 80061; 80076

== ENCOUNTER → 2021-03-19 11:44 | Outpatient (CLI) | payer MEDICARE, MEDICAID, SELFPAY ==
[2021-03-19 12:49] LABS: PTHIN 53.4 pg/mL (18.4-80.1)
[2021-03-19 13:02] LABS: AST(SGOT) 22 U/L (15-37); Alanine Aminotransfer ALT/SGPT 25 U/L (13-56); Albumin, Serum 3.7 g/dL (3.2-5.0); Alkaline Phosphatase 148 U/L (45-117); Anion Gap 4 (5-15); BUN 9 mg/dL (7-18); BUN/Creat Ratio 10.5 RATIO (10-20); Calcium,Total 9.1 mg/dL (8.5-10.1); Chloride 109 mmol/L (98-107); Creatinine, Serum 0.86 mg/dL (0.55-1.02); EST Glomerular Filtration Rate 70 mL/min (>60); Est Glom Filt Rate - Afr Amer 85 mL/min (>60); Globulin 3.7 g/dL (2.2-4.2); Glucose 89 mg/dL (74-106); Potassium 4.3 mmol/L (3.5-5.1); Protein, Total 7.4 g/dL (6.4-8.2); Sodium Level 140 mmol/L (136-145); Thyroid Stim Hormone (TSH) 1.08 uIU/mL (0.358-3.74)
[2021-03-19 13:05] LABS: Vitamin D,25 Hydroxy 67.4 ng/mL
== END ==
PROVIDERS: PCP Internal Medicine; Referring Provider Internal Medicine Endocrinology, Diabetes & Metabolism; Visit Provider Internal Medicine Endocrinology, Diabetes & Metabolism
DX: D64.9 Anemia, unspecified (principal); M81.0 Age-related osteoporosis without current pathological fracture; E55.9 Vitamin D deficiency, unspecified
CPT/HCPCS: 36415; 80053; 82306; 83970; 84443

== ENCOUNTER → 2021-03-31 13:06 | Outpatient (CLI) | payer MEDICARE, MEDICAID, SELFPAY ==
[2021-03-31 13:11] VITALS: BP 139/66; PULSE 60; RESP 16; TEMP 35.8; O2SAT 99; BMI 22.8
[2021-03-31] MEDS: DENOSUMAB 60 MG/ML SC (13:31)
== END ==
PROVIDERS: PCP Internal Medicine; Referring Provider Internal Medicine Endocrinology, Diabetes & Metabolism; Visit Provider Internal Medicine Endocrinology, Diabetes & Metabolism
DX: M81.0 Age-related osteoporosis without current pathological fracture (principal)
CPT/HCPCS: 96372; J0897

== ENCOUNTER 2021-04-18 14:53 | Emergency (ER) | payer MEDICARE, MEDICAID, SELFPAY ==
[2021-04-18 14:54] VITALS: BP 139/64; PULSE 64; RESP 22; TEMP 36.2; O2SAT 100; BMI 23.7
--- NOTE | 2021-04-18 14:55 | RAD_ITS ---
HISTORY: PAIN EXAMINATION/TECHNIQUE: XR Shoulder Min 2 Views: COMPARISON: None FINDINGS: BONES/JOINTS: No acute fracture or dislocation. Preservation of the joint spaces. No sclerotic or destructive changes observed. SOFT TISSUES: No soft tissue swelling or gas. No radiopaque foreign body. RAD/Shoulder min 2 Views IMPRESSION: No acute bony abnormality. at 1543 Reported and signed by: Jose C Pretty MD Electronically Signed: Jose C Pretty MD at 15:41 EDT Tel , Service support ,
--- NOTE | 2021-04-18 15:06 | RAD_ITS ---
HISTORY: Right collarbone pain EXAMINATION/TECHNIQUE: XR Clavicle Unilateral: COMPARISON: None FINDINGS: BONES/JOINTS: No acute fracture or dislocation. Preservation of the joint spaces. No sclerotic or destructive changes observed. SOFT TISSUES: No soft tissue swelling or gas. No radiopaque foreign body. RAD/Clavicle IMPRESSION: No acute bony abnormality. at 1543 Reported and signed by: Jose C Pretty MD Electronically Signed: Jose C Pretty MD at 15:42 EDT Tel , Service support ,
--- NOTE | 2021-04-18 17:17 | EDS_ITS ---
HPI History of Present Illness Chief Complaint: Upper Extremity Injury Detail of Chief Complaint: Right shoulder injury today, with chronic pain for 2 to 3 months Informant: patient Occured/Mechanism Mechanism/Context: Yes other see comment below Comment: Pulled back on the lesion has pain in her right shoulder Onset/Context/Timing Onset: Hours and Month(s) Context: Sudden Onset Timing: Continuous, Intermittent and Waxes and wanes Quality of Pain: Dull Location: Right shoulder Current Severity: Mild Maximum Severity: Severe Worsened by: Abduction Relieved by: Nothing Associated Symptoms Associated Symptoms: Positive for Loss of Funtion; Negative for Parasthesia and Weakness Narrative Narrative: Patient is a 65-year-old [id number] woman who presents with intermittent shoulder pain for 2 to 3 months. She states she was walking her dog pulled on the leash and has now severe pain. She states has not been able to raise her arm above her head for 2 to 3 months. She denies paresthesia, anesthesia or motor weakness. There is no history of direct trauma. She denies cardiac respiratory symptoms. She has not seen orthopedic surgeon for this. She does have history of hypertension and peptic ulcer disease. Denies history of renal disease or diabetes. She lists allergy to tramadol. Her symptoms are not allergic. Tetanus Immunization: 5-10 years Prior similar symptoms: Yes Recent Illness/Hospitalization: No PFSH PFSH Medical History Anemia Anxiety Anxiety and depression Arthritis Atherosclerotic heart disease of [place] coronary artery without angina pectoris Bone fracture Breast tumor Cataract Cervical cancer COVID-19 vaccine series completed Diverticulitis Essential hypertension Frequent headaches GERD (gastroesophageal reflux disease) Hyperlipidemia Hypoglycemia IBS (irritable bowel syndrome) Osteoporosis Osteoporosis Peptic ulcer disease Pneumonia Rheumatoid arthritis Seasonal allergies Syncopal episodes Tachycardia UTI (urinary tract infection) Vitamin D deficiency Home Medications aspirin 81 mg tablet,delayed release 81 mg PO DAILY 07/02/19 [History Last Taken 07/10/19] atorvastatin 20 mg tablet 20 mg PO QHS #90 tab 07/17/20 [Rx Last Taken Unknown] metoprolol succinate 25 mg tablet,extended release 24 hr See Rx Instructions .ROUTE .COMPLEX #90 tab 07/17/20 [Rx Last Taken Unknown] sertraline 25 mg tablet 25 mg PO DAILY #90 tab 07/31/20 [Rx Last Taken Unknown] amlodipine 2.5 mg tablet 2.5 mg PO DAILY #90 tab 10/20/20 [Rx Last Taken Unknown] famotidine 20 mg tablet 20 mg PO BID #180 tab 11/28/20 [Rx Last Taken Unknown] cholecalciferol (vitamin D3) 1,250 mcg (50,000 unit) capsule 1,250 mcg PO .twice a month #6 cap 03/19/21 [Rx Last Taken Unknown] denosumab 60 mg/mL subcutaneous syringe 60 mg SUBCUT [id number] #1 ml 03/19/21 [Rx Last Taken Unknown] hydrocodone-acetaminophen 1 tab PO Q6H PRN PRN 3 Days #10 tablet 04/18/21 [Rx Last Taken Unknown] prednisone 40 mg PO DAILY #10 tablet 04/18/21 [Rx Last Taken Unknown] Allergy/AdvReac Type Severity Reaction Status Date / Time tramadol Allergy Severe Fast heart Verified 03/31/21 13:14 beat lanolin [From Phisoderm] Allergy Mild Rash Verified 03/31/21 13:14 petrolatum,white Allergy Mild Rash Verified 03/31/21 13:14 [From Phisoderm] Estrogen Patch Allergy Unknown Rash Uncoded 03/19/21 11:01 Family History Grandmother Heart disease Grandfather Heart disease Mother Emphysema, unspecified Brother COPD (chronic obstructive pulmonary disease) Sister COPD (chronic obstructive pulmonary disease) Other Anxiety Arthritis Breast cancer Cancer Diabetes High cholesterol Hypertension Myocardial infarction Osteoporosis Surgical History History Clip Left Breast History of D&C History of left heart catheterization (LHC) (~07/10/19) History of loop electrosurgical excision procedure (LEEP) History of tonsillectomy History of tubal ligation Social History (Updated 04/18/21 @ 17:[address] Mario Proctor MD) household members: none Smoking Status: Former smoker Tobacco: How many years used: 18 how long ago did patient quit smokin alcohol intake: never substance use type: does not use caffeine: Yes Type: coffee Number of servings: 1 what type of physical activity do you participate in: none ROS ROS ED Constitutional Constitutional ED: Denies chills, fever(s), subjective, sweats or weight loss Cardiovascular Cardiovascular: Denies chest pain, palpitations or racing heartbeat Respiratory/Chest Respiratory/Chest: Denies cough, dyspnea, dyspnea on exertion or sputum Gastrointestinal Gastrointestinal: Denies nausea or vomiting Integumentary Denies rash Neurologic Neurologic: Denies paresthesias or weakness Hematologic/Lymphatic Hematologic/Lymphatic: Denies easy bleeding or easy bruising EXAM Physical Exam Const Vital Signs: 04/18/21 14:54 Temperature 97.2 F L Temperature Source Temporal Pulse Rate 64 Respiratory Rate 22 H Blood Pressure 139/64 H Blood Pressure Mean 89 Pulse Ox 100 Oxygen Delivery Method Room Air Positive well nourished and well developed General Appearance ED: well developed and NAD HEENT normocephalic and atraumatic Eyes PERRL Neck full ROM and supple General: Negative for tenderness Chest Wall palpation of chest normal Resp normal respiratory effort and clear to auscultation bilaterally Cardio regular rate, regular rhythm, S1 normal heart sound, S2 normal heart sound and no murmurs Extremity normal to inspection; Negative for full ROM Extremity Narrative: Axillary, median, radial and ulnar function intact. Abduction past 90 degrees causes significant discomfort. Bicep, tricep and brachialis tendon are 1-2+ and symmetric. Radial pulses palpable. There is pain no patient posterior right shoulder. General Extremety ED: Negative for edema General Extremity: Negative for edema Neuro oriented x3, CN's II-XII intact bilaterally and no sensory deficits noted Sensorium / Orientation: alert Motor Exam: strength 5/5 throughout Psych mental status grossly normal Skin Rashes: no rashes Trauma: no lacerations or abrasions MDM MDM MDM Narrative Medical decision making narrative: Replace per nursing protocol. There is no evidence of calcification of the supraspinatus tendon. There is mild degenerative changes noted. There is no acute process noted. 2 views of the right clavicle and 3 views of the right shoulder were obtained. The patient radiologist was read. We are in agreement. Patient's history and physical consistent with impingement syndrome. She was treated with prednisone and hip EMGs here. She was referred to orthopedist on- call. Radiography Diagnostic Testing: Clinical Impression(s) from Imaging Studies Shoulder X-Ray 04/18/21 14:55 IMPRESSION: No acute bony abnormality. at 1543 Reported and signed by: Jose C Pretty MD Electronically Signed: Jose C Pretty MD at 15:41 EDT Tel , Service support , Clavicle X-Ray 04/18/21 15:06 IMPRESSION: No acute bony abnormality. at 1543 Reported and signed by: Jose C Pretty MD Electronically Signed: Jose C Pretty MD at 15:42 EDT Tel , Service support , Discharge Plan Triage Chief Complaint: Upper Extremity Injury ED Provider: Mario Proctor Dx/Rx/DC Orders Clinical Impression: Impingement syndrome of right shoulder Instructions: ED Shoulder Impingement Syndrome Prescriptions: New hydrocodone-acetaminophen [hydrocodone-acetaminophen] 1 TABLET tablet 1 tab PO Q6H PRN PRN (Reason: Pain) 3 Days Qty: 10 RF: 0 prednisone 20 MG tablet 40 mg PO DAILY Qty: 10 RF: 0 No Action cholecalciferol (vitamin D3) 1,250 mcg (50,000 unit) capsule 1,250 mcg PO .twice a month Qty: 6 RF: 3 denosumab 60 mg/mL syringe 60 mg subcut [id number] Qty: 1 RF: 1 aspirin [Adult Low Dose Aspirin] 81 mg tablet,delayed release (DR/EC) 81 mg PO DAILY RF: 0 atorvastatin 20 mg tablet 20 mg PO QHS Qty: 90 RF: 3 metoprolol succinate 25 mg tablet extended release 24 hr See Rx Instructions .ROUTE .COMPLEX Qty: 90 RF: 3 sertraline 25 mg tablet 25 mg PO DAILY Qty: 90 RF: 3 amlodipine 2.5 mg tablet 2.5 mg PO DAILY Qty: 90 RF: 3 famotidine 20 mg tablet 20 mg PO BID Qty: 180 RF: 2 Primary Care Provider: Alexa Schwartz Referrals: Alexa Schwartz MD [Primary Care Provider] - Suman Roberson DO [STAFF PHYSICIAN] - 5-7 Days
[2021-04-18] MEDS: predniSONE 20 MG Tablet 60 MG PO (17:19)
[2021-04-18] MEDS: HYDROcodone Bitartrate/Apap 5/325 Tablet PO (17:20)
[2021-04-18 17:31] VITALS: PULSE 67; RESP 17; O2SAT 98
== END 2021-04-18 17:31 | disposition home or self-care (01) ==
PROVIDERS: Emergency Provider Emergency Medicine; PCP Internal Medicine
DX: M75.41 Impingement syndrome of right shoulder (principal); G89.29 Other chronic pain; I25.10 Atherosclerotic heart disease of native coronary artery without angina pectoris; I10 Essential (primary) hypertension; M06.9 Rheumatoid arthritis, unspecified; E78.5 Hyperlipidemia, unspecified; K58.9 Irritable bowel syndrome, unspecified; K21.9 Gastro-esophageal reflux disease without esophagitis; F32.A Depression, unspecified; F41.9 Anxiety disorder, unspecified; Z79.82 Long term (current) use of aspirin; Z79.899 Other long term (current) drug therapy; Z87.11 Personal history of peptic ulcer disease; Z87.891 Personal history of nicotine dependence
CPT/HCPCS: 73000; 73030; 99283

== ENCOUNTER 2021-09-17 14:29 | Outpatient (CLI) | payer MEDICARE, MEDICAID, SELFPAY ==
--- NOTE | 2021-09-17 14:31 | BI_ITS ---
MAMMOGRAPHY - BILATERAL SCREENING REASON FOR EXAM: Female, 66 years old. Routine annual screening examination. PERTINENT HISTORY: Sister with breast cancer. Prior right needle breast biopsy. TECHNIQUE: Digital bilateral breast adriana (3D mammographic acquisition) in the CC and MLO projections. 2-D mediolateral oblique (MLO) and craniocaudad (CC) views of both breasts were obtained. CAD: Full Field Digital Mammography with Computer Added Detection was performed. COMPARISON: Comparison is made with prior examination of 09/16/2020 and 09/11/2019. FINDINGS: Breast Composition: The breasts are heterogeneously dense, which may obscure small masses. There are no dominant masses or suspicious calcifications. A tissue clip marker is seen in the central lateral aspect of the left breast. No other significant abnormalities are identified. There has been no significant change since the prior study. BI/SCRN MAMM (CAD)W/ADRIANA BILAT IMPRESSION: Stable bilateral screening mammogram. Yearly follow-up mammogram recommended. (A) ASSESSMENT CATEGORY: BIRADS Category 2: Benign. A letter regarding these results will be sent to the patient by the facility within 30 days. Approximately 10% of breast cancers are not detected by mammography. A normal mammogram should not delay biopsy of a clinically suspicious abnormality. [id number] Electronically Signed: Solomon Barry MD at 15:10 EDT ,
== END 2021-09-17 23:59 | disposition home or self-care (01) ==
LOC: OPBI 14:30
PROVIDERS: PCP Internal Medicine; Visit Provider Internal Medicine
DX: Z12.31 Encounter for screening mammogram for malignant neoplasm of breast (principal); Z80.3 Family history of malignant neoplasm of breast
CPT/HCPCS: 77063; 77067

== ENCOUNTER 2021-09-29 13:18 | Outpatient (CLI) | payer MEDICARE, MEDICAID, SELFPAY ==
[2021-09-29 13:36] VITALS: BP 123/65; PULSE 69; RESP 16; O2SAT 99; BMI 23.8
[2021-09-29] MEDS: DENOSUMAB 60 MG/ML SC (13:39)
== END 2021-09-29 23:59 | disposition home or self-care (01) ==
LOC: MEDOUTP 13:20
PROVIDERS: PCP Internal Medicine; Referring Provider Internal Medicine Endocrinology, Diabetes & Metabolism; Visit Provider Internal Medicine Endocrinology, Diabetes & Metabolism
DX: M81.0 Age-related osteoporosis without current pathological fracture (principal)
CPT/HCPCS: 96372; J0897

== ENCOUNTER → 2021-12-15 | Outpatient (CLI) | payer MEDICARE, MEDICAID, SELFPAY ==
[2021-12-15 08:24] LABS: AST(SGOT) 27 U/L (15-37); Alanine Aminotransfer ALT/SGPT 37 U/L (13-56); Albumin, Serum 3.7 g/dL (3.2-5.0); Alkaline Phosphatase 94 U/L (45-117); Bilirubin, Direct 0.17 mg/dL (0.00-0.30); Cholesterol 130 mg/dL (200); Globulin 3.4 g/dL (2.2-4.2); High Density Lipoprotein 51 mg/dL; Protein, Total 7.1 g/dL (6.4-8.2); Triglycerides 119 mg/dL; Very Low Density Lipoprotein 24 mg/dL (5-40)
== END | disposition home or self-care (01) ==
LOC: LAB 06:25
PROVIDERS: PCP Internal Medicine; Referring Provider Internal Medicine Cardiovascular Disease; Visit Provider Internal Medicine Cardiovascular Disease
DX: E78.00 Pure hypercholesterolemia, unspecified (principal); E78.5 Hyperlipidemia, unspecified
CPT/HCPCS: 36415; 80061; 80076

== ENCOUNTER → 2022-01-12 | Outpatient (CLI) | payer MEDICARE, MEDICAID, SELFPAY ==
--- NOTE | 2022-01-12 12:32 | CDU_ITS ---
Reason For Study: BRUIT Rt. Velocities/BP Lt. Velocities/BP Prox CCA 84.2/21.6 cm/sec. Prox CCA 103.9/28.1 cm/sec. Mid CCA 73.8/20.3 cm/sec. Mid CCA 79.8/23.7 cm/sec. Dist CCA 68.36/19.0 cm/sec. Dist CCA 75.4/23.7 cm/sec. Prox ICA 68.8/20.4 cm/sec. Prox ICA 76.5/17.6 cm/sec. Mid ICA 76.5/30.3 cm/sec. Mid ICA 86.3/29.8 cm/sec. Dist ICA 100.6/12.7 cm/sec. Dist ICA 104.8/36.0 cm/sec. Rt. ICA/CCA = 100.6/73.8=1.4. Lt. ICA/CCA = 104.8/79.8=1.3. Prox ECA 106.5/18.8 cm/sec. Prox ECA 112.1/16.3 cm/sec. Rt. Vert. 33.1/6.9 cm/sec. Lt. Vert. 63.3/20.4 cm/sec. Right Extracranial There is homogeneous, smooth atherosclerotic plaque noted in the right common carotid artery. There is homogeneous, smooth atherosclerotic plaque noted in the right internal carotid artery. There is homogeneous, smooth atherosclerotic plaque noted in the right external carotid artery. Antegrade flow is noted in the right vertebral artery. Left Extracranial There is homogeneous, smooth atherosclerotic plaque noted in the left common carotid artery. There is homogeneous, smooth atherosclerotic plaque noted in the left internal carotid artery. There is intimal thickening but no significant atherosclerotic plaque noted in the left external carotid artery. Antegrade flow is noted in the left vertebral artery. Procedure Carotid Duplex [id number]. The exam was diagnostic. Exam performed in department. VL/Carotid Duplex Ultrasound Interpretation Summary Minimal smooth plaque at the proximal right internal carotid artery with less t buckley 50% stenosis Less than 50% stenosis right external carotid artery Minimal smooth plaque at the proximal left internal carotid artery with less th an 50% stenosis Less than 50% stenosis left external carotid artery Patent and antegrade vertebral arteries bilaterally Ordering Physician: Alvarez Salinas Referring Physician: Alexa Schwartz Performed By: Bianca Nelson, FINN, RVT
== END | disposition home or self-care (01) ==
LOC: CVS 12:31
PROVIDERS: PCP Internal Medicine; Referring Provider Internal Medicine Cardiovascular Disease; Visit Provider Internal Medicine Cardiovascular Disease
DX: I65.23 Occlusion and stenosis of bilateral carotid arteries (principal); R55 Syncope and collapse; R09.89 Other specified symptoms and signs involving the circulatory and respiratory systems; I25.10 Atherosclerotic heart disease of native coronary artery without angina pectoris; E78.5 Hyperlipidemia, unspecified; I10 Essential (primary) hypertension
CPT/HCPCS: 93880

== ENCOUNTER → 2022-01-14 | Outpatient (CLI) | payer MEDICARE, MEDICAID, SELFPAY | END | disposition home or self-care (01) | LOC: LABSPEC 15:06 | PROVIDERS: PCP Internal Medicine; Referring Provider Internal Medicine; Visit Provider Internal Medicine | DX: U07.1 COVID-19 (principal) | CPT/HCPCS: 87635; U0003; U0005 ==

== ENCOUNTER → 2022-02-01 | Outpatient (CLI) | payer MEDICARE, MEDICAID, SELFPAY ==
[2022-02-01 15:33] LABS: Absolute Lymphocyte Count 2.81 X10^3/uL (0.83-4.51); Absolute Neutrophil Count 4.9 X10^3/uL (2.0-7.7); Basophil# 0.03 X10^3/uL; Basophil% 0.3 % (0-1); Eosinophil# 0.16 X10^3/uL; Eosinophils% 1.8 % (0-5); Hematocrit 42.1 % (37-47); Hemoglobin 13.4 g/dL (12.0-15.0); Lymphocyte # 2.81 X10^3/ul (0.83-4.51); Lymphocyte % 32.3 % (19-41); Mean Corp Hgb Conc 31.8 g/dL (32-36); Mean Corpuscular Hgb 29.4 pg (27.0-32.0); Mean Corpuscular Volume 92.3 fL (81-99); Mean Platelet Vol. 11.9 fl (6.2-12.0); Monocyte% 9.2 % (0-10); NRBC Flagged by Analyzer 0 % (0-5); Neutrophil # 4.88 X10^3/uL (2.7-7.7); Neutrophil % 56.1 % (47-70); Platelet Count 241 K/mm3 (150-450); RBC Distribution Width CV 13.1 % (11.6-14.6); Red Blood Count 4.56 M/mm3 (4.2-5.4); White Blood Count 8.7 K/mm3 (4.4-11.0)
[2022-02-01 16:59] LABS: Anion Gap 2 (5-15); BUN 14 mg/dL (7-18); Chloride 108 mmol/L (98-107); Creatinine, Serum 0.94 mg/dL (0.55-1.02); EST Glomerular Filtration Rate 64 mL/min (>60); Est Glom Filt Rate - Afr Amer 77 mL/min (>60); Glucose 95 mg/dL (74-106); Sodium Level 141 mmol/L (136-145)
== END | disposition home or self-care (01) ==
LOC: BIMLAB 14:11
PROVIDERS: PCP Internal Medicine; Referring Provider Internal Medicine; Visit Provider Internal Medicine
DX: I10 Essential (primary) hypertension (principal)
CPT/HCPCS: 36415; 80048; 85025

== ENCOUNTER → 2022-03-30 | Outpatient (CLI) | payer MEDICARE, MEDICAID, SELFPAY ==
[2022-03-30] MEDS: DENOSUMAB 60 MG/ML SC (13:29)
[2022-03-30 13:40] VITALS: BP 140/57; PULSE 73; RESP 14; O2SAT 97; BMI 24.7
== END | disposition home or self-care (01) ==
LOC: MEDOUTP 13:15
PROVIDERS: PCP Internal Medicine; Referring Provider Internal Medicine Endocrinology, Diabetes & Metabolism; Visit Provider Internal Medicine Endocrinology, Diabetes & Metabolism
DX: M81.0 Age-related osteoporosis without current pathological fracture (principal)
CPT/HCPCS: 96372; J0897

== ENCOUNTER → 2022-07-14 | Outpatient (CLI) | payer MEDICARE, MEDICAID, SELFPAY ==
[2022-07-14 15:52] LABS: Anion Gap 7 (5-15); BUN 12 mg/dL (7-18); BUN/Creat Ratio 12.2 RATIO (10-20); Calcium,Total 9.2 mg/dL (8.5-10.1); Chloride 108 mmol/L (98-107); Creatinine, Serum 0.98 mg/dL (0.55-1.02); EST Glomerular Filtration Rate 60 mL/min (>60); Est Glom Filt Rate - Afr Amer 73 mL/min (>60); Glucose 142 mg/dL (74-106); Potassium 4.1 mmol/L (3.5-5.1); Sodium Level 143 mmol/L (136-145)
== END | disposition home or self-care (01) ==
LOC: BIMLAB 13:20
PROVIDERS: PCP Internal Medicine; Referring Provider Internal Medicine; Visit Provider Internal Medicine
DX: I10 Essential (primary) hypertension (principal)
CPT/HCPCS: 36415; 80048

== ENCOUNTER → 2022-07-15 | Outpatient (CLI) | payer MEDICARE, MEDICAID, SELFPAY ==
[2022-07-15 17:22] LABS: Hemoglobin A1c 5.7 % (3.8-5.6)
== END | disposition home or self-care (01) ==
LOC: BIMLAB 15:22
PROVIDERS: PCP Internal Medicine; Visit Provider Internal Medicine
DX: R73.9 Hyperglycemia, unspecified (principal)
CPT/HCPCS: 36415; 83036

== ENCOUNTER → 2022-09-24 | Outpatient (CLI) | payer MEDICARE, MEDICAID, SELFPAY ==
--- NOTE | 2022-09-24 11:54 | BI_ITS ---
MAMMOGRAPHY - BILATERAL SCREENING REASON FOR EXAM: Female, 67 years old. Routine annual screening examination. PERTINENT HISTORY: Sister with breast cancer. TECHNIQUE: Digital bilateral breast adriana (3D mammographic acquisition) in the CC and MLO projections. 2-D mediolateral oblique (MLO) and craniocaudad (CC) views of both breasts were obtained. CAD: Full Field Digital Mammography with Computer Added Detection was performed. COMPARISON: Comparison is made with prior study dated September 17, 2021 and September 16, 2020. FINDINGS: Breast Composition: The breasts are heterogeneously dense, which may obscure small masses. There are no dominant masses or suspicious calcifications. A tissue clip marker is once again seen in the central lateral aspect of the left breast No other significant abnormalities are identified. There has been no significant change since the prior study. BI/SCRN MAMM (CAD)W/ADRIANA BILAT IMPRESSION: Stable bilateral screening mammogram. Yearly follow-up mammogram recommended. (A) ASSESSMENT CATEGORY: BIRADS Category 2: Benign. A letter regarding these results will be sent to the patient by the facility within 30 days. Approximately 10% of breast cancers are not detected by mammography. A normal mammogram should not delay biopsy of a clinically suspicious abnormality. [id number] Electronically Signed: Solomon Barry MD at 13:28 EDT ,
== END | disposition home or self-care (01) ==
LOC: OPBI 11:54
PROVIDERS: PCP Internal Medicine; Visit Provider Internal Medicine
DX: Z12.31 Encounter for screening mammogram for malignant neoplasm of breast (principal); Z80.3 Family history of malignant neoplasm of breast
CPT/HCPCS: 77063; 77067

== ENCOUNTER → 2022-12-13 | Outpatient (CLI) | payer MEDICARE, MEDICAID, SELFPAY ==
[2022-12-13 15:15] LABS: Absolute Neutrophil Count 5.3 X10^3/uL (2.0-7.7); Basophil# 0.04 X10^3/uL; Basophil% 0.4 % (0-1); Eosinophil# 0.18 X10^3/uL; Hematocrit 46.1 % (37-47); Hemoglobin 14.5 g/dL (12.0-15.0); Lymphocyte % 29.8 % (19-41); Mean Corp Hgb Conc 31.5 g/dL (32-36); Mean Corpuscular Hgb 29.5 pg (27.0-32.0); Mean Corpuscular Volume 93.9 fL (81-99); Mean Platelet Vol. 11.8 fl (6.2-12.0); Monocyte# 0.83 X10^3/uL; Monocyte% 9.2 % (0-10); NRBC Flagged by Analyzer 0 % (0-5); Neutrophil # 5.28 X10^3/uL (2.7-7.7); Neutrophil % 58.2 % (47-70); Platelet Count 208 K/mm3 (150-450); RBC Distribution Width SD 44.5 fl (35.1-43.9); Red Blood Count 4.91 M/mm3 (4.2-5.4); White Blood Count 9.1 K/mm3 (4.4-11.0)
[2022-12-13 15:32] LABS: AST(SGOT) 21 U/L (15-37); Alanine Aminotransfer ALT/SGPT 37 U/L (13-56); Albumin, Serum 3.8 g/dL (3.2-5.0); Alkaline Phosphatase 114 U/L (45-117); Anion Gap 6 (5-15); BUN 13 mg/dL (7-18); BUN/Creat Ratio 12.7 RATIO (10-20); Calcium,Total 9.1 mg/dL (8.5-10.1); Chloride 108 mmol/L (98-107); Cholesterol 130 mg/dL (200); Creatinine, Serum 1.02 mg/dL (0.55-1.02); EST Glomerular Filtration Rate 57 mL/min (>60); Est Glom Filt Rate - Afr Amer 69 mL/min (>60); Globulin 3.7 g/dL (2.2-4.2); Glucose 136 mg/dL (74-106); High Density Lipoprotein 41 mg/dL; Potassium 3.8 mmol/L (3.5-5.1); Protein, Total 7.5 g/dL (6.4-8.2); Sodium Level 141 mmol/L (136-145); Triglycerides 195 mg/dL; Very Low Density Lipoprotein 39 mg/dL (5-40)
[2022-12-13 16:01] LABS: Hemoglobin A1c 5.8 % (3.8-5.6)
[2022-12-13 16:15] LABS: Vitamin D,25 Hydroxy 96.6 ng/mL
== END | disposition home or self-care (01) ==
LOC: BIMLAB 13:31
PROVIDERS: PCP Internal Medicine; Referring Provider Internal Medicine; Visit Provider Internal Medicine
DX: I10 Essential (primary) hypertension (principal); M81.0 Age-related osteoporosis without current pathological fracture; R73.03 Prediabetes
CPT/HCPCS: 36415; 80053; 80061; 82306; 83036; 85025

== ENCOUNTER → 2023-02-16 | Outpatient (CLI) | payer MEDICARE, MEDICAID, SELFPAY ==
[2023-02-16 16:31] LABS: Absolute Lymphocyte Count 3.57 X10^3/uL (0.83-4.51); Basophil# 0.07 X10^3/uL; Basophil% 0.7 % (0-1); Hematocrit 46.3 % (37-47); Hemoglobin 14.5 g/dL (12.0-15.0); Lymphocyte # 3.57 X10^3/ul (0.83-4.51); Lymphocyte % 36.5 % (19-41); Mean Corp Hgb Conc 31.3 g/dL (32-36); Mean Corpuscular Hgb 28.9 pg (27.0-32.0); Mean Corpuscular Volume 92.4 fL (81-99); Mean Platelet Vol. 12.1 fl (6.2-12.0); Monocyte# 0.91 X10^3/uL; Monocyte% 9.3 % (0-10); NRBC Flagged by Analyzer 0 % (0-5); Neutrophil # 4.99 X10^3/uL (2.7-7.7); Neutrophil % 51.2 % (47-70); Platelet Count 200 K/mm3 (150-450); RBC Distribution Width CV 12.6 % (11.6-14.6); RBC Distribution Width SD 42.5 fl (35.1-43.9); Red Blood Count 5.01 M/mm3 (4.2-5.4); White Blood Count 9.8 K/mm3 (4.4-11.0)
[2023-02-16 16:43] LABS: ALB/GLOB Ratio 1.1 RATIO (0.9-2.4); AST(SGOT) 20 U/L (15-37); Alanine Aminotransfer ALT/SGPT 32 U/L (13-56); Albumin, Serum 3.8 g/dL (3.2-5.0); Alkaline Phosphatase 121 U/L (45-117); Anion Gap 6 (5-15); BUN 10 mg/dL (7-18); BUN/Creat Ratio 10.9 RATIO (10-20); Calcium,Total 8.9 mg/dL (8.5-10.1); Chloride 112 mmol/L (98-107); Creatinine, Serum 0.91 mg/dL (0.55-1.02); EST Glomerular Filtration Rate 65 mL/min (>60); Est Glom Filt Rate - Afr Amer 79 mL/min (>60); Globulin 3.5 g/dL (2.2-4.2); Glucose 85 mg/dL (74-106); Potassium 3.8 mmol/L (3.5-5.1); Protein, Total 7.3 g/dL (6.4-8.2); Sodium Level 144 mmol/L (136-145)
== END | disposition home or self-care (01) ==
LOC: BIMLAB 15:37
PROVIDERS: PCP Internal Medicine; Visit Provider Internal Medicine
DX: K92.2 Gastrointestinal hemorrhage, unspecified (principal)
CPT/HCPCS: 36415; 80053; 85025

== ENCOUNTER → 2023-02-24 | Outpatient (CLI) | payer MEDICARE, MEDICAID, SELFPAY ==
--- NOTE | 2023-02-24 18:31 | CT_ITS ---
STUDY: CT ABDOMEN AND PELVIS WITH CONTRAST REASON FOR EXAM: Female, 67 years old. Abdominal Pain, GI Bleed RADIATION DOSAGE (If Supplied By Facility): CTDIvol = ( 15.58 ) mGy, DLP = ( 708.93 ) mGycm TECHNIQUE: Transaxial images were obtained from the dome of the diaphragm to the symphysis pubis without oral contrast. Oral and amp; IV Readi-CAT and amp; 100mL Isovue-370 was administered. Sagittal and coronal images were reconstructed. Individualized dose optimization techniques were used for this CT. COMPARISON: 07/10/2019. FINDINGS: Minimal posterior subpleural atelectasis otherwise visualized lung bases are unremarkable. The visualized portions of the heart are within normal limits. Normal liver. Normal gallbladder and extrahepatic biliary system. Normal spleen. Normal pancreas. Normal bilateral adrenal glands. Right mid-lower no pleural low-attenuation structure measuring 1.2 cm compatible with simple cysts. Otherwise normal right kidney. Left upper pole low attenuation structure measuring 7 mm compatible with simple cysts. Otherwise normal left kidney. Normal visualized stomach. Normal small intestine. There are multiple colonic diverticula consistent with diverticulosis. The appendix is visualized and appears normal. There is minor atherosclerotic calcification of the abdominal aorta, without a demonstrated aneurysm. Normal inferior vena cava. Normal retroperitoneum. Normal urinary bladder. Anteverted uterus. Normal abdominal wall. Possible mild osteopenia with mild spondylosis. Otherwise normal bony structures. CT/Abdomen/Pelvis WITH Contrast IMPRESSION: Mild scattered diverticulosis with no signs of diverticulitis. No acute appendicitis or bowel obstruction. Minimal bilateral simple renal cysts, otherwise unremarkable abdominal viscera. Electronically Signed: Gladys Victor MD at 20:57 EDT ,
== END | disposition home or self-care (01) ==
LOC: CT 18:29
PROVIDERS: PCP Internal Medicine; Referring Provider Internal Medicine; Visit Provider Internal Medicine
DX: K92.2 Gastrointestinal hemorrhage, unspecified (principal); R10.9 Unspecified abdominal pain
CPT/HCPCS: 74177; Q9967

== ENCOUNTER → 2023-04-13 | Outpatient (CLI) | payer MEDICARE, MEDICAID, SELFPAY ==
[2023-04-13 15:10] LABS: Bacteria 0 SEEN /hpf (None Seen); Mucous, Urine 0 SEEN /hpf (<or=2+); Red Blood Cells-Urine 0 SEEN /hpf (0-5); Squamous Epithelial Cells - UA 0 SEEN /hpf (5-10); White Blood Cells 0 SEEN /hpf (0-5)
[2023-04-13 17:19] LABS: Color, Urine Yellow (Yellow); Glucose, Dipstick Normal (Normal); Ketone-Dipstick Negative (Negative); Leukocyte Esterase-Dipstick Negative /ul (Negative); Nitrite-Dipstick Negative (Negative); Occult Blood-Urine Negative /ul (Negative); Protein-Dipstick Negative (Negative); Specific Gravity, Urine 1.015 (1.002-1.030); Urine Bilirubin Dipstick Negative (Negative); Urine Clarity Clear (Clear); Urine Urobilinogen Normal (Normal)
== END | disposition home or self-care (01) ==
LOC: LABSPEC 15:10
PROVIDERS: PCP Internal Medicine; Referring Provider Internal Medicine; Visit Provider Internal Medicine
DX: R35.0 Frequency of micturition (principal)
CPT/HCPCS: 81001

== ENCOUNTER → 2023-07-20 | Outpatient (CLI) | payer MEDICARE, MEDICAID, SELFPAY ==
--- OUTSIDE RECORDS SUMMARY | 2023-07-20 15:09 | XMS RPT_ITS | CCD ---
Author Name Unknown Address [address] [place] [address] Organization [facility] Care Team Providers Care Finisher Cold Rolling Name Role Phone Azra Lester Primary Care Provider MALINA SIEGEL Attending Unavailable AZRA LESTER Primary Care Unavailabl MALINA Vasquez Referring Unavailable AZRA LESTER Primary Care Unavailabl Brian Warren (Hist) Primary Care Provider Un available [place] Azra MURILLO Primary Care Provider Allergies Allergy Classification Reported Allergen(s) Allergy Type Date of Onset Reaction(s) Facility (8 sources) Adhesive agent; Translations: [ADHESIVE] Drug Allergy 10-09-2012 Other: See [facility] (8 sources) Alendronate; Translations: [ALENDRONATE SODIUM] Drug Allergy 10-22-2009 [facility] Work Phone: (8 sources) Codeine; Translations: [CODEINE] Drug Allergy 09-29-2005 [facility] Work Phone: (8 sources) Hexachlorophene; Translations: [HEXACHLOROPHENE ] Drug Allergy 09-29-2005 [facility] Work Phone: (8 sources) Iodine; Translations: [IODINE] Drug Allergy 09-29-2005 [facility] Work Phone: (8 sources) Sucralfate; Translations: [SUCRALFATE] Drug Allergy 12-25-2009 [facility] Work Phone: (8 sources) traMADol; Translations: [TRAMADOL] Drug Allergy 06-04-2008 Vomiting [facility] Work Phone: Medications Completed/Discontinued Medications Medication Drug Class(es) Dates Sig (Normalized) Sig (Original) amLODIPine 2.5 mg oral tablet (3 sources) Dihydropyridine Calcium Channel Shayla Start: 01-04-2023 take 1 tablet by mouth once daily amLODIPine (NORVASC) 2.5 mg tablet 2.5 MG ORALLY DAILY FOR BLOOD PRESSURE 0 01/04/2023 Active Problems Active Problems Problem Classification Problem Date Documented Date Episodic/Chronic Abdominal pain (3 sources) Right lower quadrant pain; Translations: [Right lower quadrant pain] Onset: 03-10-2023 03-01-2023 Episodic Cancer of cervix (7 sources) Carcinoma in situ of uterine cervix; Translations: [Carcinoma in situ of cervix, unspecified] Onset: 03-01-2023 03-01-2023 Episodic Cancer; other and unspecified primary (7 sources) Carcinoma in situ; Translations: [Carcinoma in situ of other specified sites] 09-29-2005 Chronic Disorders of teeth and jaw (7 sources) Temporomandibular joint disorder; Translations: [Unspecified temporomandibular joint disorder, unspecified side] 09-29-2005 Episodic Essential hypertension (7 sources) Benign essential hypertension; Translations: [Essential (primary) hypertension] 09-29-2005 Chronic Gastritis and duodenitis (14 sources) Gastritis; Translations: [Gastritis, unspecified, without bleeding] Onset: 04-11-2006 04-11-2006 Episodic Gastroduodenal ulcer (except hemorrhage) (14 sources) Chronic gastric ulcer; Translations: [Chronic gastric ulcer without mention of hemorrhage or perforation] Onset: 11-04-2005 09-29-2005 Chronic Mood disorders (14 sources) Major depression, single episode; Translations: [Major depressive disorder, single episode] Onset: 12-25-2009 09-29-2005 Chronic Osteoporosis (7 sources) Osteoporosis; Translations: [Age-related osteoporosis without current pathological fracture] Onset: 06-04-2008 06-04-2008 Chronic Other female genital disorders (1 source) History of abnormal cervical Papanicolaou smear ; Translations: [Personal history of other diseases of the female genital tract] 03-01-2023 Episodic Other nervous system disorders (1 source) Other chronic pain; Translations: [Chronic RLQ pain] Onset: 03-10-2023 Chronic Other screening for suspected conditions (not mental disorders or infectious disease) (1 source) Patient encounter status; Translations: [Encounter for screening for malignant neoplasm of cervix] 03-01-2023 Episodic Thyroid disorders (7 sources) Goiter; Translations: [Nontoxic goiter, unspecified] Onset: 04-28-2010 04-28-2010 Chronic Past or Other Problems Problem Classification Problem Date Documented Da te Episodic/Chronic Nonmalignant breast conditions (7 sources) Mastodynia; Translations: [Mastodynia] Onset: 08-15-2013 08-15-2013 Episodic Other gastrointestinal disorders (7 sources) Diarrhea; Translations: [Diarrhea, unspecified] Onset: 04-11-2006 04-11-2006 Episodic Results Test Name Value Interpretation Reference Range Facil ity Vital Signs Date Time Vital Sign Value Performing Clinician Faci lity 03-01-2023 14:28-0400 Body weight 63.5 kg Malina Siegel MD Work Phone: [facility] 03-01-2023 14:28-0400 Diastolic blood pressure 88 mm[Hg] Malina Siegel MD Work Phone: [facility] 03-01-2023 14:28-0400 Systolic blood pressure 152 mm[Hg] Malina Siegel MD Work Phone: [facility] Encounters Encounter Date Encounter Type Care Provider Facility Start: 03-14-2023 Telephone encounter Malina Siegel MD Work Phone: OB/Gynecology Procedures Date Procedure Procedure Detail Performing Clinician Start: 03-10-2023 Us transvaginal Malina Siegel MD Work Phone: Start: 09-11-2014 Mammography Malina puckett MD Work Phone: Start: 04-29-2010 Lipid 1996 panel - S jessika or Plasma Malina Siegel MD Work Phone: Start: 08-08-2008 SURGICAL PATHOLOGY, ELAINE Li MD Work Phone: Start: 04-03-2007 CYTOLOGY SAND WORKER, CONVERTED Sherman Li MD Work Phone: Start: 04-11-2006 Colonoscopy Malina puckett MD Work Phone: Start: 03-28-2006 CYTOLOGY SAND WORKER, CONVERTED Sherman Li MD Work Phone: Start: 09-20-2005 CYTOLOGY SAND WORKER, CONVERTED Sherman Li MD Work Phone: Plan of Treatment Date Care Activity Detail Author Start: 03-01-2026 Pap Testing Pap Testing [facility] Start: 02-25-2023 Covid-19 Vaccine () Covid-19 Vaccine () [facility] Start: 02-25-2023 Influenza vaccination [facility] Start: 06-27-2022 ADVANCE DIRECTIVE DISCUSSION ADVANCE DIRECTIVE DISCUSSION [facility] Start: 08-17-2021 COVID-19 VACCINE (3 - Pfizer series) COVID-19 VACCINE (3 - Pfizer series) [facility] Start: 2020 BONE DENSITY BONE DENSITY [facility] Start: 2020 Bone Density Screening Bone Density Screening [facility] Start: 2020 Pneumococcal Vaccine: 65+ (1 - PCV) Pneumococcal Vaccine: 65+ (1 - PCV) [facility] Start: 2020 PNEUMOCOCCAL: 65+ (1 - PCV) PNEUMOCOCCAL: 65+ (1 - PCV) [facility] Start: 04-11-2016 Colonoscopy COLONOSCOPY [facility] Start: 04-11-2016 COLORECTAL CANCER SCREENING COLORECTAL CANCER SCREENING [facility] Start: 04-02-2016 DIABETES SCREEN DIABETES SCREEN [facility] Start: 04-02-2016 Diabetes Screening Diabetes Screening [facility] Start: 03-20-2016 Shingrix Vaccine (2 of 3) Shingrix Vaccine (2 of 3) [facility] Start: 09-12-2015 Mammography [facility] Start: 2015 RSV Vaccine (1 - 1-dose 60+ series) RSV Vaccine (1 - 1-dose 60+ series) [facility] Start: 04-29-2015 Lipid 1996 panel - Serum or Plasma Lipid Screening [facility] Start: 04-29-2015 LIPID SCREEN LIPID SCREEN [facility] Start: 04-25-2015 PAP TESTING PAP TESTING [facility] Start: 2005 SHINGRIX VACCINE (1 of 2) SHINGRIX VACCINE (1 of 2) [facility] Start: 2000 COLOGUARD (FIT-DNA) COLOGUARD (FIT-DNA) [facility] Start: [address] COLONOGRAPHY [facility] Start: 2000 FECAL OCCULT BLOOD FECAL OCCULT BLOOD [facility] Start: 2000 SIGMOIDOSCOPY SIGMOIDOSCOPY [facility] Start: 1974 Urine microalbumin profile [facility] Start: 1973 ANNUAL PCP TEAM CHRONIC DISEASE VISIT ANNUAL PCP TEAM CHRONIC DISEASE VISIT [facility] Start: 1973 BP CONTROLLED (<130/80) BP CONTROLLED (<130/80) [facility] Start: 1973 HEPATITIS C SCREENING HEPATITIS C SCREENING [facility] PAP TEST PAP TEST Lab [facility] Encounter for screening for malignant neoplasm of cervix History of abnormal cervical Papanicolaou smear 03/01/2023 2:56 PM EDT [facility] Work Phone: End: 03-30-2024 Us transvaginal US FEMALE PELVIS TRANSVAG Radiology Routine Chronic RLQ pain 1 Occurrences starting 03/01/2023 until 03/30/2024 [facility] Work Phone: Immunizations Immunization Date Immunization Notes Care Provider [facility] 04-19-2022 influenza virus vaccine, unspecified formulation Malina Siegel MD Work Phone: [facility] 04-04-2012 influenza virus vaccine, unspecified formulation Malina Siegel MD Work Phone: [facility] 03-28-2010 influenza virus vaccine, unspecified formulation Malina Siegel MD Work Phone: [facility] Work Phone: 06-04-2008 influenza virus vaccine, unspecified formulation Malina Siegel MD Work Phone: [facility] Work Phone: Payers Date Payer Category Payer Medicaid MEDICAID [facility] MEDICAID [id number] 2021-Present [phone] [address] [place] [address] Medicaid [id number] 2021 Medicaid [id number] 2021 Medicare [employer] MEDICARE A ETNA MEDICARE ASSURE HMO D SNP [id number] 2021-Present [phone] [address] [place] [address] Medicare [id number] 2021 Medicare [id number] Social History Date Type Detail Facility Start: 09-19-2012 Tobacco smoking stat [facility] Ex-smoker [facility] End: 09-19-1988 History of tobacco use Current smoker [facility] End: 09-19-1988 History of tobacco use Cigarette Smoker [facility] Start: 09-19-2012 End: 03-01-2023 Cigarettes smoked current (pack per day) - Reported 1 [facility] Start: 09-19-2012 Tobacco use and exposure Smoke less tobacco non-user [facility] Start: 03-01-2023 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 (finding) [facility] Start: 03-01-2023 Tobacco use panel [facility] Start: 1955 Sex Assigned At Not on file [facility] Tobacco smoking stat [facility] Tobacco smoking consumption unknown [facility] Tobacco smoking stat [facility] Never smoked tobacco [facility] Start: 09-29-2005 End: 07-16-2008 Alcohol intake Current drinker of alcohol (finding) [facility] Note 03-14-2023 Telephone Encounter - Domenica Lazar RN - 03/14/2023 11:52 AM EDTTelephone Encounter - Roxana Shaikh LPN - 03/14/2023 11:35 AM EDT Note Date & Type Note Facility 03-14-2023 Miscellaneous Notes Formattin g of this note might be different from the original. Patient notified. Voiced understanding. Domenica Lazar RN Message left asking pt to contact office for results. Roxana Shaikh LPN ----- Message from Malina Siegel MD sent at 03/13/2023 10:28 AM EDT ----- Please let her know her ultrasound is overall normal. If she has any vaginal bleeding she should let us know. The ovaries were not visualized which means they are small and that is normal after menopause. There were no findings to explain why she has pain and I suspect it is more GI than pull worker. thanks. Malina Siegel MD documented in this encounter [facility] Progress note 03-10-2023 Note Date & Type Note Facility 03-10-2023 Note HNO ID: [id number] Author: Madison Mishra RDMS Service: ? Author Type: Cryptologic Technician Operator/Analyst Type: Progress Notes Filed: 03/10/2023 1:42 PM Note Text: Radiology Service Progress Note PATIENT NAME: Yessica Narayanan DATE OF SERVICE: March 10, 2023 TIME: 1:42 PM PATIENT IDENTITY VERIFICATION COMPLETED USING TWO (2) IDENTIFIERS: Name and Date of confirmed by patient verbally. FALL SCREENING: Has the patient had 2 falls in the last year or 1 fall with injury or currently using an Ambulatory Assistive Device (Walker, Cane, Wheelchair, Crutches, etc.)? No PATIENT GENDER DATA: Female. status: : No status: NO. PATIENT RELEVANT IMPLANT DATA REVIEWED: Not Applicable RADIOLOGY DEPARTMENT: Ultrasound PERIPHERAL IV DATA: Not applicable SIGNED BY: Madison Mishra RDMS March 10, 2023 1:42 PM [facility] History of Present illness Narrative 03-10-2023 Madison Mishra RDMS - 03/10/2023 1:00 PM EDT Note Date & Type Note Facility 03-10-2023 History of Presen t illness Narrative Radiology Service Progress Note PATIENT NAME: Yessica Narayaann DATE OF SERVICE: March 10, 2023 TIME: 1:42 PM PATIENT IDENTITY VERIFICATION COMPLETED USING TWO (2) IDENTIFIERS: Name and Date of confirmed by patient verbally. FALL SCREENING: Has the patient had 2 falls in the last year or 1 fall with injury or currently using an Ambulatory Assistive Device (Walker, Cane, Wheelchair, Crutches, etc.)? No PATIENT GENDER DATA: Female. status: : No status: NO. PATIENT RELEVANT IMPLANT DATA REVIEWED: Not Applicable RADIOLOGY DEPARTMENT: Ultrasound PERIPHERAL IV DATA: Not applicable SIGNED BY: Madison Mishra RDMS March 10, 2023 1:42 PM documented in this encounter [facility] Progress note 03-01-2023 Note Date & Type Note Facility 03-01-2023 Note HNO ID: [id number] Author: Malina Siegel MD Service: ? Author Type: Physician Type: Progress Notes Filed: 03/01/2023 2:50 PM Note Text: Yessica Narayanan is a 67 year old female who presents for problem visit for c/o RLQ pain.. HPI: Has had RLQ pain often, worse w/ walking. Feels like it might be in her ovary area and has had this pain since she says she had heart cath and they put a lot of pressure in that area. No vaginal bleeding. H/o LEEP 1993, but f/u normal after that. Has a lot of GI issues, seems worse recently and recently had CT that showed diverticulosis. Had cologard and was recently negative. 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 Chronic gastric ulcer without mention of hemorrhage or perforation Diarrhea Diverticulitis Essential hypertension, benign Major depressive disorder, single episode Osteoporosis Tachycardia Temporomandibular joint disorders, unspecified PAST SURGICAL HISTORY Procedure Laterality Date COLONOSCOPY W/BIOPSY SINGLE/MULTIPLE 04/11/2006 repeat in CONIZATION CERVIX W/WO DANDC RPR ELTRD EXC LEEP-Cervix DANDC DIAG AND/OR THERAP, NOT OB 07/28/2008 menorrhagia EGD TRANSORAL BIOPSY SINGLE/MULTIPLE 04/11/2006 HEART CATHETERIZATION 2019 LIG/TRNSXJ FLP TUBE ABDL/VAG APPR UNI/BI Tubal ligation TONSILLECTOMY PRIMARY/SECONDARY Tonsillectomy FAMILY HISTORY Problem Relation Age of Onset COPD Mother COPD Father other (Other [Other]) Other No breast/pull worker/colon cancer Thyroid Paternal Grandmother goiter Social History Tobacco Use Smoking status: Former Packs/day: 1 Types: Cigarettes Quit date: 09/19/1988 Years since quittin.4 Smokeless tobacco: Never Vaping Use Vaping Use: Never used Substance Use Topics Alcohol use: No Drug use: No Current Outpatient Medications Medication Sig atorvastatin (LIPITOR) 20 mg tablet TAKE 1 TABLET BY MOUTH ORALLY AT BEDTIME FOR CHOLESTEROL metoprolol succinate ER (TOPROL XL) 25 mg 24 hr tablet Take 25 mg by mouth once daily. amLODIPine (NORVASC) 2.5 mg tablet 2.5 MG ORALLY DAILY FOR BLOOD PRESSURE prednisoLONE acetate (PRED FORTE) 1 % ophthalmic suspension INSTILL 1 DROP INTO EACH EYE 3 TIMES PER DAY FOR 10 DAYS. SHAKE WELL BEFORE EACH USE RESTASIS 0.05 % ophthalmic emulsion Use 1 Drop in both eyes twice daily. pantoprazole DR (PROTONIX) 40 mg tablet TAKE 1 TABLET BY MOUTH TWICE A DAY X 2 WEEKS THEN ONCE DAILY cholecalciferol, Vitamin D3, (VITAMIN D3) 1,250 mcg (50,000 unit) cap capsule TAKE 1 CAPSULE BY MOUTH TWICE A MONTH cyanocobalamin, vitamin B-12, (VITAMIN B-12 ORAL) Take by mouth. Multivitamin capsule Take 1 capsule by mouth once daily. CALCIUM CARBONATE/VITAMIN D3 (CALCIUM + D ORAL) Take by mouth once daily. (Patient not taking: Reported on 03/01/2023) No current facility-administered medications for this visit. Allergies As of Date: 03/01/2023 Allergen Noted Reaction ADHESIVE 10/09/2012 Other: See Comments CARAFATE [SUCRALFATE] 12/25/2009 GI Upset CODEINE 09/29/2005 GI Upset FOSAMAX [ALENDRONATE SODIUM] 10/22/2009 GI Upset IODINE 09/29/2005 Hives PHISOHEX [HEXACHLOROPHENE] 09/29/2005 Hives TRAMADOL 06/04/2008 Vomiting Fully Assessed 03/01/2023 REVIEW OF SYSTEMS Abdomen: no acute changes Bladder: urinary frequency, c/o of a lot of pressure, some urge incontinence, doesn't feel empty, no hematuria, no dysuria, some feeling of incomplete void. Gets up 2-3 times a night. Breast: No breast lumps, nipple d/c, overlying skin changes, redness or skin retraction. Expanded ROS: N/A Allergies and current medication updated:Yes EXAM: BP 152/88 Wt 140 lb (63.5kg) LMP 12/28/2009 GENERAL: pleasant, female in no apparent distress HEENT: Normocephalic, atraumatic, mucus membranes moist, and no lesions BREAST: soft, non-tender, symmetric, no dominant mass, normal nipple-areolar complex, no lymphadenopathy, and no nipple discharge CHEST: Normal inspiratory effort ABDOMEN: soft, non-tender, and no masses PELVIC: external genitalia normal, normal Bartholin's glands, urethra, Kachemak's glands, no vulvar lesions, no cervical lesions, good vaginal support, physiologic discharge present, normal appearing perineal body and perianal region, cystocele 1st degree, flattened atrophic epithelium BIMANUAL: uterus normal size, shape and consistency, no adnexal masses, and non-tender ASSESSMENT AND PLAN: RLQ pain, uncertain etiology, check pelvic US likely GI/mucsuskeletal check pap/hrhpv reviewed recent abd/pelvis [facility] from [facility] Malina Kyle (more content not included)... [facility] History of Present illness Narrative 03-01-2023 Malina Siegel MD - 03/01/2023 2:19 PM EDT Note Date & Type Note Facility 03-01-2023 History of Presen t illness Narrative Yessica Narayanan is a 67 year old female who presents for problem visit for c/o RLQ pain.. HPI: Has had RLQ pain often, worse w/ walking. Feels like it might be in her ovary area and has had this pain since she says she had heart cath and they put a lot of pressure in that area. No vaginal bleeding. H/o LEEP 1993, but f/u normal after that. Has a lot of GI issues, seems worse recently and recently had CT that showed diverticulosis. Had cologard and was recently negative. 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 Chronic gastric ulcer without mention of hemorrhage or perforation Diarrhea Diverticulitis Essential hypertension, benign Major depressive disorder, single episode Osteoporosis Tachycardia Temporomandibular joint disorders, unspecified PAST SURGICAL HISTORY Procedure Laterality Date COLONOSCOPY W/BIOPSY SINGLE/MULTIPLE 04/11/2006 repeat in CONIZATION CERVIX W/WO D&C RPR ELTRD EXC LEEP-Cervix D&C DIAG &/OR THERAP, NOT OB 07/28/2008 menorrhagia EGD TRANSORAL BIOPSY SINGLE/MULTIPLE 04/11/2006 HEART CATHETERIZATION 2019 LIG/TRNSXJ FLP TUBE ABDL/VAG APPR UNI/BI Tubal ligation TONSILLECTOMY PRIMARY/SECONDARY <AGE 12 Tonsillectomy FAMILY HISTORY Problem Relation Age of Onset COPD Mother COPD Father other (Other [Other]) Other No breast/pull worker/colon cancer Thyroid Paternal Grandmother goiter Social History Tobacco Use Smoking status: Former Packs/day: 1 Types: Cigarettes Quit date: 09/19/1988 Years since quittin.4 Smokeless tobacco: Never Vaping Use Vaping Use: Never used Substance Use Topics Alcohol use: No Drug use: No Current Outpatient Medications Medication Sig atorvastatin (LIPITOR) 20 mg tablet TAKE 1 TABLET BY MOUTH ORALLY AT BEDTIME FOR CHOLESTEROL metoprolol succinate ER (TOPROL XL) 25 mg 24 hr tablet Take 25 mg by mouth once daily. amLODIPine (NORVASC) 2.5 mg tablet 2.5 MG ORALLY DAILY FOR BLOOD PRESSURE prednisoLONE acetate (PRED FORTE) 1 % ophthalmic suspension INSTILL 1 DROP INTO EACH EYE 3 TIMES PER DAY FOR 10 DAYS. SHAKE WELL BEFORE EACH USE RESTASIS 0.05 % ophthalmic emulsion Use 1 Drop in both eyes twice daily. pantoprazole DR (PROTONIX) 40 mg tablet TAKE 1 TABLET BY MOUTH TWICE A DAY X 2 WEEKS THEN ONCE DAILY cholecalciferol, Vitamin D3, (VITAMIN D3) 1,250 mcg (50,000 unit) cap capsule TAKE 1 CAPSULE BY MOUTH TWICE A MONTH cyanocobalamin, vitamin B-12, (VITAMIN B-12 ORAL) Take by mouth. Multivitamin capsule Take 1 capsule by mouth once daily. CALCIUM CARBONATE/VITAMIN D3 (CALCIUM + D ORAL) Take by mouth once daily. (Patient not taking: Reported on 03/01/2023) No current facility-administered medications for this visit. Allergies As of Date: 03/01/2023 Allergen Noted Reaction ADHESIVE 10/09/2012 Other: See Comments CARAFATE [SUCRALFATE] 12/25/2009 GI Upset CODEINE 09/29/2005 GI Upset FOSAMAX [ALENDRONATE SODIUM] 10/22/2009 GI Upset IODINE 09/29/2005 Hives PHISOHEX [HEXACHLOROPHENE] 09/29/2005 Hives TRAMADOL 06/04/2008 Vomiting Fully Assessed 03/01/2023 REVIEW OF SYSTEMS Abdomen: no acute changes Bladder: urinary frequency, c/o of a lot of pressure, some urge incontinence, doesn't feel empty, no hematuria, no dysuria, some feeling of incomplete void. Gets up 2-3 times a night. Breast: No breast lumps, nipple d/c, overlying skin changes, redness or skin retraction. Expanded ROS: N/A Allergies and current medication updated:Yes EXAM: BP 152/88 Wt 140 lb (63.5kg) LMP 12/28/2009 GENERAL: pleasant, female in no apparent distress HEENT: Normocephalic, atraumatic, mucus membranes moist, and no lesions BREAST: soft, non-tender, symmetric, no dominant mass, normal nipple-areolar complex, no lymphadenopathy, and no nipple discharge CHEST: Normal inspiratory effort ABDOMEN: soft, non-tender, and no masses PELVIC: external genitalia normal, normal Bartholin's glands, urethra, Kachemak's glands, no vulvar lesions, no cervical lesions, good vaginal support, physiologic discharge present, normal appearing perineal body and perianal region, cystocele 1st degree, flattened atrophic epithelium BIMANUAL: uterus normal size, shape and consistency, no adnexal masses, and non-tender ASSESSMENT AND PLAN: RLQ pain, uncertain etiology, check pelvic US likely GI/mucsuskeletal check pap/hrhpv reviewed recent abd/pelvis CT from [facility] Malina Siegel MD documented in this encounter [facility] Evaluation note Note Date & Type Note Facility documented in this encounter [facility] Evaluation note Note Date & Type Note Facility documented in this encounter [facility] Reason for referral (narrative) Diagnostic Procedure Only (Routine) - Authorized Note Date & Type Note Facility Referral ID Status Reason Start Date Expiration Date Visits Requested Visits Authorized [id number] Authorized Auto-Generat ed Referral 03/01/2023 03/30/2024 1 1 [facility] Reason for referral (narrative) Diagnostic Procedure Only (Routine) - Closed Note Date & Type Note Facility Referral ID Status Reason Start Date Expiration Date V isits Requested Visits Authorized [id number] Closed Auto-Generate d Referral 03/01/2023 03/30/2024 1 1 [facility] Summary Purpose Family History No Family History Records Found Advance Directives No Advanced Directives Records Found Additional Source Comments Source Comments (unrecognize d section and content) In the event this informatio n is protected by the Federal Confidentiality of Alcohol and Drug Abuse Patient Records regulations: The Federal rules restrict any use of the information to criminally investigate or prosecute any alcohol or drug abuse patient.[facility] the event this information is protected by the Federal Confidentiality of Alcohol and Drug Abuse Patient Records regulations: The Federal rules restrict any use of the information to criminally investigate or prosecute any alcohol or drug abuse patient.[facility] the event this information is protected by the Federal Confidentiality of Alcohol and Drug Abuse Patient Records regulations: The Federal rules restrict any use of the information to criminally investigate or prosecute any alcohol or drug abuse patient.[facility] the event this information is protected by the Federal Confidentiality of Alcohol and Drug Abuse Patient Records regulations: The Federal rules restrict any use of the information to criminally investigate or prosecute any alcohol or drug abuse patient.[facility] the event this information is protected by the Federal Confidentiality of Alcohol and Drug Abuse Patient Records regulations: The Federal rules restrict any use of the information to criminally investigate or prosecute any alcohol or drug abuse patient.[facility] the event this information is protected by the Federal Confidentiality of Alcohol and Drug Abuse Patient Records regulations: The Federal rules restrict any use of the information to criminally investigate or prosecute any alcohol or drug abuse patient.[facility] the event this information is protected by the Federal Confidentiality of Alcohol and Drug Abuse Patient Records regulations: The Federal rules restrict any use of the information to criminally investigate or prosecute any alcohol or drug abuse patient.[facility] Reason for Visit (unrecogniz ed section and content) Reason Comments Results Reason Comments Radiology US Specialty Diagnoses / Procedures Referred By Yuly diaz Referred To Contact US IMAGING Diagnoses Chronic RLQ pain Procedures US FEMALE PELVIS TRANSVAG US TRANSVAGINAL Malina Siegel MD [address] [place] [address] Us [id number] Referral ID Status Reason Start Date Expiration Date V isits Requested Visits Authorized [id number] Closed Auto-Generate d Referral 03/01/2023 03/30/2024 1 1 Care Teams (unrecognized sec tion and content) Finisher Cold Rolling Relationship Specialty Start Date End Date Azra Lester [address] [place] [id number] PCP - General Family Medicine 04/20/16 Finisher Cold Rolling Relationship Specialty Start Date End Date Brian Emerson (Hist) NO FORWARDING ADDRESS PCP - General 09/23/03 04/19/16 Azra Lester [address] [place] [id number] PCP - General Family Medicine 04/20/16 Finisher Cold Rolling Relationship Specialty Start Date End Date Brian Emerson (Hist) NO FORWARDING ADDRESS PCP - General 09/23/03 04/19/16 Azra Lester [address] [place] [id number] PCP - General Family Medicine 04/20/16 Finisher Cold Rolling Relationship Specialty Start Date End Date Azra Lester CNP [address] [place] [id number] PCP - General Family Medicine 04/20/16 INFORMATION SOURCE (unrecogn ized section and content) FOR RECORDS PERTAINING TO PATIENTS WHO ARE OR HAVE BEEN ENROLLED IN A CHEMICAL DEPENDENCY/SUBSTANCEABUSE PROGRAM, SOME INFORMATION MAY BE OMITTED. This clinical summary was aggregated from multiple sources. Caution should be exercised in using it in the provision of clinical care. This summary normalizes information from multiple sources, and as a consequence, information in this document may materially change the coding, format and clinical context of patient data. In addition, data may be omitted in some cases. CLINICAL DECISIONS SHOULD BE BASED ON THE PRIMARY CLINICAL RECORDS. [facility]. provides no warranty or guarantee of the accuracy or completeness of information in this document.
[2023-07-20 15:34] LABS: Absolute Lymphocyte Count 3.99 X10^3/uL (0.83-4.51); Absolute Neutrophil Count 4.2 X10^3/uL (2.0-7.7); Basophil# 0.07 X10^3/uL; Basophil% 0.7 % (0-1); Eosinophil# 0.17 X10^3/uL; Eosinophils% 1.8 % (0-5); Hematocrit 45.6 % (37-47); Hemoglobin 14.6 g/dL (12.0-15.0); Lymphocyte # 3.99 X10^3/ul (0.83-4.51); Lymphocyte % 42.4 % (19-41); Mean Corpuscular Hgb 28.8 pg (27.0-32.0); Mean Corpuscular Volume 89.9 fL (81-99); Mean Platelet Vol. 11.7 fl (6.2-12.0); Monocyte# 0.94 X10^3/uL; NRBC Flagged by Analyzer 0 % (0-5); Neutrophil # 4.21 X10^3/uL (2.7-7.7); Neutrophil % 44.8 % (47-70); Platelet Count 241 K/mm3 (150-450); RBC Distribution Width CV 13.2 % (11.6-14.6); RBC Distribution Width SD 43.2 fl (35.1-43.9); Red Blood Count 5.07 M/mm3 (4.2-5.4); White Blood Count 9.4 K/mm3 (4.4-11.0)
[2023-07-20 16:15] LABS: AST(SGOT) 24 U/L (15-37); Alanine Aminotransfer ALT/SGPT 31 U/L (13-56); Albumin, Serum 3.8 g/dL (3.2-5.0); Alkaline Phosphatase 129 U/L (45-117); Anion Gap 5 (5-15); BUN 10 mg/dL (7-18); BUN/Creat Ratio 10.9 RATIO (10-20); Chloride 111 mmol/L (98-107); Creatinine, Serum 0.92 mg/dL (0.55-1.02); EST Glomerular Filtration Rate 65 mL/min (>60); Est Glom Filt Rate - Afr Amer 78 mL/min (>60); Globulin 3.7 g/dL (2.2-4.2); Glucose 80 mg/dL (74-106); Potassium 3.6 mmol/L (3.5-5.1); Protein, Total 7.5 g/dL (6.4-8.2); Sodium Level 143 mmol/L (136-145)
== END | disposition home or self-care (01) ==
LOC: BIMLAB 14:13
PROVIDERS: PCP Internal Medicine; Referring Provider Internal Medicine; Visit Provider Internal Medicine
DX: R00.0 Tachycardia, unspecified (principal); K52.9 Noninfective gastroenteritis and colitis, unspecified
CPT/HCPCS: 36415; 80053; 84439; 84443; 85025

== ENCOUNTER 2023-08-26 09:43 | Emergency (ER) | payer MEDICARE, MEDICAID, SELFPAY ==
[2023-08-26 09:44] VITALS: BP 147/90; PULSE 102; RESP 16; TEMP 36.8; O2SAT 93; BMI 25.3
--- NOTE | 2023-08-26 10:13 | CT_ITS ---
STUDY: CT ABDOMEN AND PELVIS WITH CONTRAST REASON FOR EXAM: Female, 68 years old. Abdominal pain. RADIATION DOSAGE (If Supplied By Facility): CTDIvol = ( 15.56 ) mGy, DLP = ( 852.45 ) mGycm TECHNIQUE: Transaxial images were obtained from the dome of the diaphragm to the symphysis pubis with oral contrast. Oral and amp; IV Gastrografin and amp; 100mL Isovue-300 was administered. Sagittal and coronal images were reconstructed. Individualized dose optimization techniques were used for this CT. COMPARISON: Comparison is made with prior study done February 24, 2023. FINDINGS: The visualized lung bases are unremarkable. The visualized portions of the heart are within normal limits. There is decreased attenuation of the liver consistent with steatosis. Mild hepatomegaly. Normal spleen. Normal pancreas. Normal bilateral adrenal glands. 1.4 cm cyst in the lower right renal pole. Questionable 9 mm angiomyolipoma in the upper lateral aspect of the right kidney. 1 cm cyst in the medial aspect of the left kidney Normal visualized stomach. Normal small intestine. There are multiple colonic diverticula consistent with diverticulosis. The appendix is visualized and appears normal. There is scattered atherosclerotic calcification of the abdominal aorta, without a demonstrated aneurysm. Normal inferior vena cava. Normal retroperitoneum. Normal urinary bladder. There is a small umbilical hernia containing fat. There are mild degenerative changes of the visualized lumbar spine. CT/Abdomen/Pelvis WITH Contrast IMPRESSION: Fatty infiltration of the liver. Mild hepatomegaly. Stable small bilateral renal cysts. Sigmoid diverticulosis with no radiographic evidence of diverticulitis. Electronically Signed: Solomon Barry MD at 12:54 EST ,
[2023-08-26 10:31] LABS: Absolute Lymphocyte Count 2.86 X10^3/uL (0.83-4.51); Absolute Neutrophil Count 5.7 X10^3/uL (2.0-7.7); Basophil# 0.07 X10^3/uL; Basophil% 0.7 % (0-1); Eosinophil# 0.13 X10^3/uL; Eosinophils% 1.4 % (0-5); Hematocrit 47.6 % (37-47); Hemoglobin 15.4 g/dL (12.0-15.0); Lymphocyte # 2.86 X10^3/ul (0.83-4.51); Lymphocyte % 29.8 % (19-41); Mean Corp Hgb Conc 32.4 g/dL (32-36); Mean Corpuscular Hgb 28.8 pg (27.0-32.0); Mean Corpuscular Volume 89.1 fL (81-99); Mean Platelet Vol. 11.4 fl (6.2-12.0); Monocyte# 0.82 X10^3/uL; Monocyte% 8.6 % (0-10); NRBC Flagged by Analyzer 0 % (0-5); Neutrophil # 5.69 X10^3/uL (2.7-7.7); Neutrophil % 59.3 % (47-70); Platelet Count 233 K/mm3 (150-450); RBC Distribution Width CV 13.2 % (11.6-14.6); RBC Distribution Width SD 42.7 fl (35.1-43.9); Red Blood Count 5.34 M/mm3 (4.2-5.4); White Blood Count 9.6 K/mm3 (4.4-11.0)
[2023-08-26] MEDS: 0.9% Normal Saline (1000mL) 1,000 ML 1000 ML IV (10:34)
--- NOTE | 2023-08-26 10:46 | ED.VIS.GI ---
HPI HPI - GI History of Present Illness Chief Complaint: Abd Pain Informant: patient Narrative Narrative: Presents for evaluation of abdominal pain and distention for the past 8 months after being started on Fosamax. Since then has stopped it. Has continued symptoms. She is on chronic pantoprazole history of gastric ulcers. She had EGD colonoscopy years ago. She been followed by her PCP with the bloating and also seen her web mobile designer a few months ago states it is not a gynecological issue. Diarrhea with loose stools daily was put on cholestyramine 2 months ago which would cause constipation. Took 2 Pepto-Bismol yesterday therefore had dark stools. Denies any blood thinners. Occasional nausea. Tolerating oral fluids. She was referred to GI Dr. Barillas however appointment not till February. She has not any recent antibiotics. She has had diverticulitis x 2 in the past and is concerned of this. She had a CT scan 5 months ago reported diverticulosis per the patient. She had loose stools yesterday. Denies bright red blood per rectum. She has had tubal ligations for abdominal surgeries. [facility] Medical History Abdominal pain Acute bronchitis, unspecified Acute maxillary sinusitis, unspecified Anemia Anxiety Anxiety and depression Arthritis Atherosclerotic heart disease of [place] coronary artery without angina pectoris Blood glucose elevated Bone fracture Borderline type 2 diabetes mellitus Breast tumor Bronchitis Cataract Cervical cancer Chronic diarrhea COVID-19 COVID-19 vaccine series completed Diverticulitis Encounter for screening for COVID-19 Essential hypertension Flu vaccine need Frequent headaches GERD (gastroesophageal reflux disease) GI bleed Health care maintenance Hyperlipidemia Hypoglycemia IBS (irritable bowel syndrome) Osteoporosis Osteoporosis Peptic ulcer disease Pneumonia Rheumatoid arthritis Right shoulder pain Seasonal allergies Syncopal episodes Tachycardia URI (upper respiratory infection) Urinary frequency UTI (urinary tract infection) Vitamin D deficiency Home Medications famotidine 20 mg tablet 20 mg PO BID #180 tabs 12/17/21 [Rx Last Taken Unknown] atorvastatin 20 mg tablet 20 mg PO QHS CHOLESTEROL #90 tabs 06/10/22 [Rx Last Taken Unknown] amlodipine 2.5 mg tablet 2.5 mg PO DAILY BLOOD PRESSURE #90 tabs 01/04/23 [Rx Last Taken Unknown] cholecalciferol (vitamin D3) 1,250 mcg (50,000 unit) capsule 1,250 mcg PO .twice a month #6 caps 02/08/23 [Rx Last Taken Unknown] pantoprazole 40 mg tablet,delayed release 40 mg PO DAILY #180 tabs 02/16/23 [Rx Last Taken Unknown] metoprolol succinate 25 mg tablet,extended release 24 hr See Rx Instructions .Route .COMPLEX #90 tabs 06/14/23 [Rx Last Taken Unknown] cholestyramine (with sugar) 4 gram powder for susp in a packet 4 g PO BID #60 ea 07/20/23 [Rx Last Taken Unknown] sucralfate 1 gram tablet (Carafate) 1 g PO Q6H #60 tabs 08/26/23 [Rx Last Taken Unknown] Allergy/AdvReac Type Severity Reaction Status Date / Time tramadol Allergy Severe Fast heart Verified 08/26/23 09:44 beat sertraline Allergy Intermediate Itching Verified 08/26/23 09:44 lanolin [From Phisoderm] Allergy Mild Rash Verified 08/26/23 09:44 petrolatum,white Allergy Mild Rash Verified 08/26/23 09:44 [From Phisoderm] Estrogens Allergy Rash Verified 08/26/23 09:44 acetaminophen [From Vicodin] AdvReac Severe vomiting Verified 08/26/23 09:44 hydrocodone [From Vicodin] AdvReac Severe vomiting Verified 08/26/23 09:44 codeine AdvReac Vomiting Verified 08/26/23 09:44 Family History Grandmother Heart disease Grandfather Heart disease Mother Emphysema, unspecified Brother COPD (chronic obstructive pulmonary disease) Sister COPD (chronic obstructive pulmonary disease) Other Anxiety Arthritis Breast cancer Cancer Diabetes High cholesterol Hypertension Myocardial infarction Osteoporosis Surgical History History Clip Left Breast History of D&C History of left heart catheterization (LHC) (~07/10/19) History of loop electrosurgical excision procedure (LEEP) History of tonsillectomy History of tubal ligation Social History household members: none Smoking Status: Former smoker Tobacco: How many years used: 18 how long ago did patient quit smokin alcohol intake: never substance use type: does not use caffeine: Yes Type: coffee Number of servings: 1 what type of physical activity do you participate in: none ROS ROS ED Constitutional Constitutional ED: Denies chills, fever(s) or sweats Eyes Eyes: Denies change in vision ENT ENT ED: Denies dysphagia or sore throat Cardiovascular Cardiovascular: Denies chest pain, leg edema, palpitations or racing heartbeat Respiratory/Chest Respiratory/Chest: Denies cough, dyspnea or dyspnea on exertion Gastrointestinal Gastrointestinal: Reports abdominal pain and diarrhea; Denies nausea or vomiting Genitourinary Genitourinary ED: Denies dysuria, hematuria or urinary frequency Musculoskeletal Musculoskeletal: Denies back pain, extremity pain or neck pain Integumentary Denies rash or wounds Neurologic Neurologic: Denies headache(s), paresthesias or weakness EXAM Physical Exam Const Vital Signs: 08/26/23 09:44 08/26/23 12:38 08/26/23 14:23 Temperature 98.2 F 98.4 F Temperature Source Temporal Pulse Rate 102 H 89 18 L Respiratory Rate 16 18 71 H Blood Pressure 147/90 H 173/84 H 142/90 H Blood Pressure Mean 109 113 107 Pulse Ox 93 97 98 Oxygen Delivery Method Room Air Room Air Positive well nourished and well developed General Appearance ED: well developed and NAD HEENT HEENT Narrative: Mild dry mucosal membranes normocephalic and atraumatic Eyes PERRL, EOMs intact bilaterally and conjunctivae normal General Eye ED: Yes normal appearance of both eyes Neck no lymphadenopathy and supple General: Negative for tenderness Chest Wall Chest: Negative for tenderness Resp normal respiratory effort and normal air movement Effort and Inspection: symmetric chest movement; Negative for respiratory distress Cardio regular rate, regular rhythm and no murmurs Peripheral Pulses: pulses 2+ throughout GI normal to inspection, nondistended, normoactive bowel sounds GI Narrative: Mild epigastric tenderness. Negative Ferrer's or McBurney's tenderness. Palpation: Negative for guarding or rebound tenderness present Back/Spine no CVA tenderness and no thoracic nor lumbar tenderness Extremity normal to inspection General Extremety ED: Negative for edema or tenderness General Extremity: Negative for edema Neuro oriented x3 and no sensory deficits noted Sensorium / Orientation: awake and alert Skin no rashes or lesions noted and no wounds MDM MDM MDM Narrative Medical decision making narrative: Interventions / MDM: Differential diagnosis: Diverticulosis, dehydration, electrolyte abnormalities, Diagnosis considered but do not suspect: Tumors however images negative. Diverticulitis however CT negative. Stool infection, chronic symptoms with outpatient testing ordered. My EKG interpretation: N/A Imaging independently reviewed and interpreted by myself: CT abdomen pelvis p.o. IV contrast: Renal cyst, fatty liver, diverticulosis. This also read by radiology. External documents reviewed: N/A Test considered but not ordered:N/A ED course: Nontoxic, nonsurgical abdomen. Patient reported history of flat abdomen however more distended per patient. No tympanic abdominal exam. Abdominal labs were ordered along with stool studies which concerns are for infection. CT scan with contrast ordered for further evaluation and rule outs, discussed with patient primary concern for any tumors as she reports new distention. Lower clinical concern for colitis. 1355: CT scan negative for acute process stable renal cyst diverticulosis not diverticulitis fatty liver. Discussed results with the patient. Her abdominal labs are all normal. Reassured on findings. She is unable to provide stool sample for further testing however outpatient labs were ordered with stool specimen collection kit home with the patient. She uses cholestyramine as needed for diarrhea. She has referral to GI. Restarted on Carafate as she states this has happened in the past. Outpatient follow-up with her doctor. Discussed if concerns, PCP can refer to different GI doctor who may get her in sooner. All questions were answered. Re-evaluation: stable Disposition discussed with patient/family/significant other: Patient Case discussed with consulting clinician: N/A This note was generated with [employer] dictation software. It may contain incorrect words, spelling, and punctuation that were not noted in checking the note before signing. Lab Data Attestation: I reviewed the patient's lab results. Labs: Laboratory Results - last 24 hr 08/26/23 10:20 WBC 9.6 RBC 5.34 Hgb 15.4 H Hct 47.6 H MCV 89.1 MCH 28.8 MCHC 32.4 RDW Std Deviation 42.7 RDW Coeff of Eben 13.2 Plt Count 233 MPV 11.4 Immature Gran % (Auto) 0.200 Neut % (Auto) 59.3 Lymph % (Auto) 29.8 [place] % (Auto) 8.6 Eos % (Auto) 1.4 Baso % (Auto) 0.7 Absolute Neuts (auto) 5.7 Absolute Lymphs (auto) 2.86 Nucleated RBC % 0 Sodium 141 Potassium 3.7 Chloride 109 H Carbon Dioxide 28.0 Anion Gap 4 L BUN 11 Creatinine 1.11 H Estim Creat Clear Calc 42.29 Est GFR (MDRD) Af Amer 63 Est GFR (MDRD) Non-Af 52 L BUN/Creatinine Ratio 9.9 L Glucose 121 H Calcium 9.3 Total Bilirubin 0.50 AST 23 ALT 39 Alkaline Phosphatase 124 H Total Protein 7.6 Albumin 4.0 Globulin 3.6 Albumin/Globulin Ratio 1.1 Lipase 43 Radiography Diagnostic Testing: Clinical Impression(s) from Imaging Studies Abdomen/Pelvis CT 08/26/23 10:13 IMPRESSION: Fatty infiltration of the liver. Mild hepatomegaly. Stable small bilateral renal cysts. Sigmoid diverticulosis with no radiographic evidence of diverticulitis. Electronically Signed: Solomon Barry MD at 12:54 EST , Discharge Plan Triage Chief Complaint: Abd Pain ED Provider: Paulino Romero Dx/Rx/DC Orders Clinical Impression: Diverticulosis, Fatty liver, Diarrhea, Renal cyst, Abdominal pain Instructions: Abdominal Pain, ED Diarrhea, Unknown Cause Prescriptions: New sucralfate [Carafate] 1 gram tablet 1 g PO Q6H Qty: 60 0RF No Action pantoprazole 40 mg tablet,delayed release (DR/EC) 40 mg PO DAILY Qty: 180 1RF Rx Instructions: Take BID x 2 weeks then daily cholestyramine (with sugar) 4 gram powder in packet 4 g PO BID Qty: 60 1RF Rx Instructions: administer w/meal; avoid other meds within 1hr before or 4-6hr after dose famotidine 20 mg tablet 20 mg PO BID Qty: 180 3RF atorvastatin 20 mg tablet 20 mg PO QHS Qty: 90 3RF amlodipine 2.5 mg tablet 2.5 mg PO DAILY Qty: 90 3RF cholecalciferol (vitamin D3) 1,250 mcg (50,000 unit) capsule 1,250 mcg PO .twice a month Qty: 6 3RF metoprolol succinate 25 mg tablet extended release 24 hr See Rx Instructions .ROUTE .COMPLEX Qty: 90 3RF Dose Instruction: TAKE 1 TABLET BY MOUTH EVERY DAY FOR BLOOD PRESSURE Rx Instructions: TAKE 1 TABLET BY MOUTH EVERY DAY FOR BLOOD PRESSURE Primary Care Provider: Alexa Schwartz Referrals: Alexa Schwartz MD [Primary Care Provider] - 1 Week Activity Restrictions/Additional Instructions: Your abdominal labs are all normal. CT scan abdomen pelvis noted diverticulosis no diverticulitis. Stable renal cyst. Fatty liver. Take sucralfate as prescribed. You are unable to provide stool sample, order given to you for outpatient testing to follow-up with your PCP. Disposition Disposition: Home, Self Care Discharge Date/Time: 08/26/23 14:27
[2023-08-26 10:47] LABS: ALB/GLOB Ratio 1.1 RATIO (0.9-2.4); AST(SGOT) 23 U/L (15-37); Alanine Aminotransfer ALT/SGPT 39 U/L (13-56); Alkaline Phosphatase 124 U/L (45-117); Anion Gap 4 (5-15); BUN 11 mg/dL (7-18); BUN/Creat Ratio 9.9 RATIO (10-20); Calcium,Total 9.3 mg/dL (8.5-10.1); Chloride 109 mmol/L (98-107); Creatinine, Serum 1.11 mg/dL (0.55-1.02); EST Glomerular Filtration Rate 52 mL/min (>60); Est Glom Filt Rate - Afr Amer 63 mL/min (>60); Estimated Creatinine Clearance 42.29 ml/min; Globulin 3.6 g/dL (2.2-4.2); Glucose 121 mg/dL (74-106); Lipase 43 U/L (13-75); Potassium 3.7 mmol/L (3.5-5.1); Protein, Total 7.6 g/dL (6.4-8.2); Sodium Level 141 mmol/L (136-145)
[2023-08-26 12:38] VITALS: BP 173/84; PULSE 89; RESP 18; O2SAT 97
[2023-08-26 14:23] VITALS: BP 142/90; PULSE 18; RESP 71; TEMP 36.9; O2SAT 98
== END 2023-08-26 14:27 | disposition home or self-care (01) ==
PROVIDERS: Emergency Provider Emergency Medicine; PCP Internal Medicine; Visit Provider Emergency Medicine
DX: K57.30 Diverticulosis of large intestine without perforation or abscess without bleeding (principal); M06.9 Rheumatoid arthritis, unspecified; R11.0 Nausea; K76.0 Fatty (change of) liver, not elsewhere classified; R10.9 Unspecified abdominal pain; N28.1 Cyst of kidney, acquired; Z79.899 Other long term (current) drug therapy; Z87.891 Personal history of nicotine dependence; Z87.19 Personal history of other diseases of the digestive system
CPT/HCPCS: 74177; 80053; 83690; 85025; 96360; 99284; J7030; Q9967; A4216

== ENCOUNTER → 2023-08-27 | Outpatient (CLI) | payer MEDICARE, MEDICAID, SELFPAY ==
--- OUTSIDE RECORDS SUMMARY | 2023-08-27 07:24 | XMS RPT_ITS | CCD ---
Author Name Unknown Address [address] [place] [address] Organization [facility] Care Team Providers Care Technician Telecommunication Systems Name Role Phone Azra Lester Primary Care Provider [phone] AMLINA SIEGEL Attending Unavailable AZRA LESTER Primary Care Unavailabl MALINA Vasquez Referring Unavailable AZRA LESTER Primary Care Unavailabl Brian Warren (Hist) Primary Care Provider Un available [place] Azra MURILLO Primary Care Provider Allergies Allergy Classification Reported Allergen(s) Allergy Type Date of Onset Reaction(s) Facility (8 sources) Adhesive agent; Translations: [ADHESIVE] Drug Allergy 10-09-2012 Other: See [facility] (8 sources) Alendronate; Translations: [ALENDRONATE SODIUM] Drug [facility] ([facility] sources) Codeine; Translations: [CODEINE] Drug Allergy 09-29-2005 [facility]: (8 sources) Hexachlorophene; Translations: [HEXACHLOROPHENE ] Drug Allergy 09-29-2005 [facility] Work Phone: (8 sources) Iodine; Translations: [IODINE] Drug Allergy 09-29-2005 [facility] Work Phone: (8 sources) Sucralfate; Translations: [SUCRALFATE] Drug Allergy 12-25-2009 [facility]: (8 sources) traMADol; Translations: [TRAMADOL] Drug Allergy 06-04-2008 Vomiting [facility] Work Phone: Medications Completed/Discontinued Medications Medication [...] 63.5 kg Malina Siegel MD Work Phone: [facility] 03-01-2023 14:28-0400 Diastolic blood pressure 88 mm[Hg] Malina Siegel MD Work Phone: [facility] 03-01-2023 14:28-0400 Systolic blood pressure 152 mm[Hg] Malina Siegel MD Work Phone: [facility] Encounters Encounter Date Encounter Type Care [...] Li MD Work Phone: Start: 04-03-2007 CYTOLOGY CHIEF ENTERPRISE ARCHITECT, CONVERTED Sherman Li MD Work Phone: Start: 04-11-2006 Colonoscopy Malina puckett MD Work Phone: Start: 03-28-2006 CYTOLOGY CHIEF ENTERPRISE ARCHITECT, CONVERTED Sherman Li MD Work Phone: Start: 09-20-2005 CYTOLOGY CHIEF ENTERPRISE ARCHITECT, CONVERTED Sherman Li MD Work Phone: Plan of Treatment Date Care Activity Detail Author Start: 03-01-2026 Pap Testing Pap Testing [facility] Start: 02-25-2023 Covid-19 Vaccine () Covid-19 Vaccine () [facility] Start: 02-25-2023 Influenza vaccination [facility] Start: 06-27-2022 ADVANCE DIRECTIVE DISCUSSION ADVANCE DIRECTIVE DISCUSSION [facility] Start: 08-17-2021 COVID-19 VACCINE (3 - Pfizer series) COVID-19 VACCINE (3 - Pfizer series) [facility] Start: 2020 BONE DENSITY BONE DENSITY [facility] Start: 2020 Bone Density Screening Bone Density Screening [facility] Start: 2020 Pneumococcal Vaccine: 65+ (1 - PCV) Pneumococcal Vaccine: 65+ (1 - PCV) [facility] Start: 2020 PNEUMOCOCCAL: 65+ (1 - PCV) PNEUMOCOCCAL: 65+ (1 - PCV) [facility] Start: 04-11-2016 Colonoscopy COLONOSCOPY [facility] Start: 04-11-2016 COLORECTAL CANCER SCREENING COLORECTAL CANCER SCREENING [facility] Start: 04-02-2016 DIABETES SCREEN DIABETES SCREEN [facility] Start: 04-02-2016 Diabetes Screening Diabetes Screening [facility] Start: 03-20-2016 Shingrix Vaccine (2 of 3) Shingrix Vaccine (2 of 3) [facility] Start: 09-12-2015 Mammography [facility] Start: 2015 RSV Vaccine (1 - 1-dose 60+ series) RSV Vaccine (1 - 1-dose 60+ series) [facility] Start: 04-29-2015 Lipid 1996 panel - Serum or Plasma Lipid Screening [facility] Start: 04-29-2015 LIPID SCREEN LIPID SCREEN [facility] Start: 04-25-2015 PAP TESTING PAP TESTING [facility] Start: 2005 SHINGRIX VACCINE (1 of 2) SHINGRIX VACCINE (1 of 2) [facility] Start: 2000 COLOGUARD (FIT-DNA) COLOGUARD (FIT-DNA) [facility] Start: [address] COLONOGRAPHY [facility] Start: 2000 FECAL OCCULT BLOOD FECAL OCCULT BLOOD [facility] Start: 2000 SIGMOIDOSCOPY SIGMOIDOSCOPY [facility] Start: 1974 Urine microalbumin profile [facility] Start: 1973 ANNUAL PCP TEAM CHRONIC DISEASE VISIT ANNUAL PCP TEAM CHRONIC DISEASE VISIT [facility] Start: 1973 BP CONTROLLED (<130/80) BP CONTROLLED (<130/80) [facility] Start: 1973 HEPATITIS C SCREENING HEPATITIS C SCREENING [facility] PAP TEST PAP TEST Lab [facility] Encounter for screening for malignant neoplasm of cervix History of abnormal cervical Papanicolaou smear 03/01/2023 2:56 PM EDT [facility] Work Phone: End: 03-30-2024 Us transvaginal US FEMALE PELVIS TRANSVAG Radiology Routine Chronic RLQ pain 1 Occurrences starting 03/01/2023 until 03/30/2024 [facility] Work Phone: Immunizations Immunization Date Immunization Notes Care Provider [facility] 04-19-2022 influenza virus vaccine, unspecified formulation Malina Siegel MD Work Phone: [facility] 04-04-2012 influenza virus vaccine, unspecified formulation Malina Siegel MD Work Phone: [facility] 03-28-2010 influenza virus vaccine, unspecified formulation Malina Siegel MD Work Phone: [facility] Work Phone: 06-04-2008 influenza virus vaccine, unspecified formulation Malina Siegel MD Work Phone: [facility] Work Phone: Payers Date Payer Category Payer Medicaid MEDICAID [facility] MEDICAID [id number] 2021-Present [phone] [address] [place] [address] Medicaid [id number] 2021 Medicaid [id number] 2021 Medicare [employer] MEDICARE A ETNA MEDICARE ASSURE HMO D SNP [id number] 2021-Present [phone] [address] [place] [address] Medicare [id number] 2021 Medicare [id number] Social History Date Type Detail Facility Start: 09-19-2012 Tobacco smoking stat [facility] Ex-smoker [facility] End: 09-19-1988 History of tobacco use Current smoker [facility] End: 09-19-1988 History of tobacco use Cigarette Smoker [facility] Start: 09-19-2012 End: 03-01-2023 Cigarettes smoked current (pack per day) - Reported 1 [facility] Start: 09-19-2012 Tobacco use and exposure Smoke less tobacco non-user [facility] Start: 03-01-2023 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) [facility] Start: 03-01-2023 Tobacco use panel [facility] Start: 1955 Sex Assigned At Not on file [facility] Tobacco smoking stat [facility] Tobacco smoking consumption unknown [facility] Tobacco smoking stat [facility] Never smoked tobacco [facility] Start: 09-29-2005 End: 07-16-2008 Alcohol intake Current drinker of alcohol (finding) [facility] Note 03-14-2023 Telephone Encounter - Domenica [...] I suspect it is more GI than hand stamper. thanks. Malina Siegel MD documented in this encounter [facility] Progress note 03-10-2023 Note Date & Type Note Facility 03-10-2023 Note HNO ID: [id number] Author: Madison Mishra RDMS Service: ? Author Type: Probation And Parole Officer Type: Progress Notes Filed: 03/10/2023 1:42 PM [...] Mishra RDMS March 10, 2023 1:[address] [facility] History of Present illness Narrative [...] 2023 1:42 PM documented in this encounter [facility] Progress note 03-01-2023 Note Date & Type Note Facility 03-01-2023 Note HNO ID: [id number] Author: Malina Siegel MD Service: ? 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 History Comments: Sexual Activity: Never; Male; Tubal [...] COPD Father other (Other [Other]) Other No breast/hand stamper/colon cancer Thyroid Paternal Grandmother goiter Social History [...] external genitalia normal, normal Bartholin's glands, urethra, Tupelo's glands, no vulvar lesions, no cervical lesions, good vaginal support, physiologic discharge present, normal appearing perineal body and perianal region, cystocele 1st degree, flattened atrophic epithelium BIMANUAL: uterus normal size, shape and consistency, no adnexal masses, and non-tender ASSESSMENT AND PLAN: RLQ pain, uncertain etiology, check pelvic US likely GI/mucsuskeletal check pap/hrhpv reviewed recent abd/pelvis [facility] from [facility] Malina Kyle (more content not included)... 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 Comments: Sexual Activity: Never; Male; Tubal [...] COPD Father other (Other [Other]) Other No breast/hand stamper/colon cancer Thyroid Paternal Grandmother goiter Social History [...] external genitalia normal, normal Bartholin's glands, urethra, Tupelo's glands, no vulvar lesions, no cervical lesions, good vaginal support, physiologic discharge present, normal appearing perineal body and perianal region, cystocele 1st degree, flattened atrophic epithelium BIMANUAL: uterus normal size, shape and consistency, no adnexal masses, and non-tender ASSESSMENT AND PLAN: RLQ pain, uncertain etiology, check pelvic US likely GI/mucsuskeletal check pap/hrhpv reviewed recent abd/pelvis CT from [facility] Malina Siegel MD documented in this encounter [facility] Evaluation note Note Date & Type Note Facility documented in this encounter [facility] Evaluation note Note Date & Type Note Facility documented in this encounter [facility] Reason for referral (narrative) Diagnostic Procedure Only (Routine) - Authorized Note Date & Type Note Facility Referral ID Status Reason Start Date Expiration Date Visits Requested Visits Authorized [id number] Authorized Auto-Generat ed Referral 03/01/2023 03/30/2024 1 1 [facility] Reason for referral (narrative) Diagnostic Procedure Only (Routine) - Closed Note Date & Type Note Facility Referral ID Status Reason Start Date Expiration Date V isits Requested Visits Authorized [id number] Closed Auto-Generate d Referral 03/01/2023 03/30/2024 1 1 [facility] Summary Purpose Family History No Family [...] or prosecute any alcohol or drug abuse patient.[facility] the event this information is protected by the Federal Confidentiality of Alcohol and Drug Abuse Patient Records regulations: The Federal rules restrict any use of the information to criminally investigate or prosecute any alcohol or drug abuse patient.[facility] the event this information is protected by the Federal Confidentiality of Alcohol and Drug Abuse Patient Records regulations: The Federal rules restrict any use of the information to criminally investigate or prosecute any alcohol or drug abuse patient.[facility] the event this information is protected by the Federal Confidentiality of Alcohol and Drug Abuse Patient Records regulations: The Federal rules restrict any use of the information to criminally investigate or prosecute any alcohol or drug abuse patient.[facility] the event this information is protected by the Federal Confidentiality of Alcohol and Drug Abuse Patient Records regulations: The Federal rules restrict any use of the information to criminally investigate or prosecute any alcohol or drug abuse patient.[facility] the event this information is protected by the Federal Confidentiality of Alcohol and Drug Abuse Patient Records regulations: The Federal rules restrict any use of the information to criminally investigate or prosecute any alcohol or drug abuse patient.[facility] the event this information is protected by the Federal Confidentiality of Alcohol and Drug Abuse Patient Records regulations: The Federal rules restrict any use of the information to criminally investigate or prosecute any alcohol or drug abuse patient.[facility] Reason for Visit (unrecogniz ed section and content) Reason Comments Results Reason Comments Radiology US Specialty Diagnoses / Procedures Referred By Yuly diaz Referred To Contact US IMAGING Diagnoses Chronic RLQ pain Procedures US FEMALE PELVIS TRANSVAG US TRANSVAGINAL Malina Siegel MD [address] [place] [address] Us Imaging [facility] Referral ID Status Reason Start Date Expiration Date V isits Requested Visits Authorized [id number] Closed Auto-Generate d Referral 03/01/2023 03/30/2024 1 1 Care Teams (unrecognized sec tion and content) Technician Telecommunication Systems Relationship Specialty Start Date End Date Azra Lester [address] [place] [id number] PCP - General Family Medicine 04/20/16 Technician Telecommunication Systems Relationship Specialty Start Date End Date Brian Emerson (Hist) NO FORWARDING ADDRESS PCP - General 09/23/03 04/19/16 Azra Lester [address] [place] [id number] PCP - General Family Medicine 04/20/16 Technician Telecommunication Systems Relationship Specialty Start Date End Date Brian Emerson (Hist) NO FORWARDING ADDRESS PCP - General 09/23/03 04/19/16 Azra Lester [address] [place] [id number] PCP - General Family Medicine 04/20/16 Technician Telecommunication Systems Relationship Specialty Start Date End Date Azra Lester CNP [address] [place] [id number] PCP - General Family Medicine 04/20/16 INFORMATION [...] BE BASED ON THE PRIMARY CLINICAL RECORDS. [employer] [facility]. provides no warranty or guarantee of the accuracy or completeness of information in this document.
== END | disposition home or self-care (01) ==
LOC: LABSPEC 07:22
PROVIDERS: PCP Internal Medicine; Referring Provider Emergency Medicine; Visit Provider Emergency Medicine
DX: R19.7 Diarrhea, unspecified (principal)
CPT/HCPCS: 87493

== ENCOUNTER → 2023-09-30 | Outpatient (CLI) | payer MEDICARE, MEDICAID, SELFPAY ==
--- NOTE | 2023-09-30 12:07 | BI_ITS ---
MAMMOGRAPHY - BILATERAL SCREENING REASON FOR EXAM: Female, 68 years old. Routine annual screening examination. PERTINENT HISTORY: Sister with breast cancer. TECHNIQUE: Digital bilateral breast adriana (3D mammographic acquisition) in the CC and MLO projections. 2-D mediolateral oblique (MLO) and craniocaudad (CC) views of both breasts were obtained. CAD: Full Field Digital Mammography with Computer Added Detection was performed. COMPARISON: Comparison is made with prior study September 24, 2022 and September 17, 2021. FINDINGS: Breast Composition: The breasts are heterogeneously dense, which may obscure small masses. There are no dominant masses or suspicious calcifications. A tissue clip marker is once again seen in the central lateral aspect of the left breast No other significant abnormalities are identified. There has been no significant change since the prior study. BI/SCRN MAMM (CAD)W/ADRIANA BILAT IMPRESSION: Stable bilateral screening mammogram. Yearly follow-up mammogram recommended. (A) ASSESSMENT CATEGORY: BIRADS Category 2: Benign. A letter regarding these results will be sent to the patient by the facility within 30 days. Approximately 10% of breast cancers are not detected by mammography. A normal mammogram should not delay biopsy of a clinically suspicious abnormality. [id number] Electronically Signed: Solomon Barry MD at 13:09 EDT ,
== END | disposition home or self-care (01) ==
LOC: OPBI 12:06
PROVIDERS: PCP Internal Medicine; Referring Provider Nurse Practitioner; Visit Provider Nurse Practitioner
DX: Z12.31 Encounter for screening mammogram for malignant neoplasm of breast (principal); Z80.3 Family history of malignant neoplasm of breast
CPT/HCPCS: 77063; 77067

== ENCOUNTER → 2024-05-09 | Outpatient (CLI) | payer MEDICARE, MEDICAID, SELFPAY ==
[2024-05-09 15:14] LABS: Absolute Lymphocyte Count 2.98 X10^3/uL (0.83-4.51); Absolute Neutrophil Count 5.6 X10^3/uL (2.0-7.7); Basophil# 0.05 X10^3/uL; Basophil% 0.5 % (0-1); Eosinophil# 0.13 X10^3/uL; Eosinophils% 1.4 % (0-5); Hematocrit 44.9 % (37-47); Hemoglobin 14.6 g/dL (12.0-15.0); Lymphocyte # 2.98 X10^3/ul (0.83-4.51); Lymphocyte % 32.3 % (19-41); Mean Corp Hgb Conc 32.5 g/dL (32-36); Mean Corpuscular Hgb 29.7 pg (27.0-32.0); Mean Corpuscular Volume 91.3 fL (81-99); Monocyte# 0.49 X10^3/uL; Monocyte% 5.3 % (0-10); NRBC Flagged by Analyzer 0 % (0-5); Neutrophil # 5.57 X10^3/uL (2.7-7.7); Neutrophil % 60.3 % (47-70); Platelet Count 199 K/mm3 (150-450); RBC Distribution Width SD 43.1 fl (35.1-43.9); Red Blood Count 4.92 M/mm3 (4.2-5.4); White Blood Count 9.2 K/mm3 (4.4-11.0)
[2024-05-09 15:35] LABS: Vitamin D,25 Hydroxy 77.8 ng/mL
[2024-05-09 15:43] LABS: ALB/GLOB Ratio 1.2 RATIO (0.9-2.4); AST(SGOT) 18 U/L (15-37); Alanine Aminotransfer ALT/SGPT 28 U/L (13-56); Albumin, Serum 3.8 g/dL (3.2-5.0); Alkaline Phosphatase 108 U/L (45-117); Anion Gap 6 (5-15); BUN 12 mg/dL (7-18); BUN/Creat Ratio 11.9 RATIO (10-20); Calcium,Total 9.2 mg/dL (8.5-10.1); Chloride 106 mmol/L (98-107); Cholesterol 193 mg/dL (200); Creatinine, Serum 1.01 mg/dL (0.55-1.02); EST Glomerular Filtration Rate 58 mL/min (>60); Est Glom Filt Rate - Afr Amer 70 mL/min (>60); Globulin 3.1 g/dL (2.2-4.2); Glucose 183 mg/dL (74-106); High Density Lipoprotein 36 mg/dL; Potassium 3.4 mmol/L (3.5-5.1); Protein, Total 6.9 g/dL (6.4-8.2); Sodium Level 140 mmol/L (136-145); Triglycerides 357 mg/dL; Very Low Density Lipoprotein 71 mg/dL (5-40)
[2024-05-10 10:13] LABS: Hemoglobin A1c 5.8 % (3.8-5.6)
== END | disposition home or self-care (01) ==
LOC: BIMLAB 13:20
PROVIDERS: PCP Internal Medicine; Referring Provider Internal Medicine; Visit Provider Internal Medicine
DX: I10 Essential (primary) hypertension (principal); M81.0 Age-related osteoporosis without current pathological fracture; R73.9 Hyperglycemia, unspecified
CPT/HCPCS: 36415; 80053; 80061; 82306; 83036; 85025

== ENCOUNTER → 2024-10-02 | Outpatient (CLI) | payer MEDICARE, MEDICAID, SELFPAY ==
--- NOTE | 2024-10-02 13:15 | BI_ITS ---
EXAM: SCRN MAMM (CAD)W/ADRIANA BILAT 10/02/2024 CLINICAL HISTORY: F, Age 69 y/o , BREAST CANCER SCREENING TECHNIQUE: Bilateral screening digital breast tomosynthesis with 2D and 3D images. Computer aided detection. COMPARISON: Prior exam(s) dated 09/30/2023, 09/24/2022, 09/17/2021. FINDINGS: TISSUE DENSITY: The breast tissue is composed of scattered area of fibroglandular density. Bilateral Breast Mammographic Findings: No significant masses, calcifications or other abnormalities are identified. BI/SCRN MAMM (CAD)W/ADRIANA BILAT IMPRESSION: Right Breast: BIRADS 1 NEGATIVE. Left Breast: BIRADS 1 NEGATIVE. OVERALL FINAL ASSESSMENT: BIRADS 1 NEGATIVE. RECOMMENDATION: Routine annual follow-up in 1 Year A letter with findings and recommendations will be mailed to the patient. Reading Location: [id number]
== END | disposition home or self-care (01) ==
LOC: OPBI 12:57
PROVIDERS: PCP Internal Medicine; Referring Provider Internal Medicine; Visit Provider Internal Medicine
DX: Z12.31 Encounter for screening mammogram for malignant neoplasm of breast (principal)
CPT/HCPCS: 77063; 77067

== ENCOUNTER → 2024-10-10 | Outpatient (CLI) | payer MEDICARE, MEDICAID, SELFPAY ==
[2024-10-10 14:22] LABS: ALB/GLOB Ratio 1.6 RATIO (0.9-2.4); AST(SGOT) 23 U/L (<=31); Alanine Aminotransfer ALT/SGPT 19 U/L (<=34); Albumin, Serum 4.2 g/dL (3.4-4.8); Alkaline Phosphatase 107 U/L (35-104); Anion Gap 12 (5-15); BUN 10 mg/dL (4-19); BUN/Creat Ratio 11.1 RATIO (10-20); Calcium,Total 9.8 mg/dL (7.6-11.0); Carbon Dioxide 25.1 mmol/L (21.0-32.0); Chloride 106 mmol/L (98-108); Cholesterol 226 mg/dL (<=200); Creatinine, Serum 0.94 mg/dL (0.70-1.20); EST Glomerular Filtration Rate 66 (>60); Globulin 2.7 g/dL (2.2-4.2); Glucose 92 mg/dL (70-99); High Density Lipoprotein 48 mg/dL; Low Density Lipoprotein Calc. 128 mg/dL; Potassium 4.3 mmol/L (3.3-5.1); Sodium Level 143 mmol/L (133-145); Total Bilirubin 0.46 mg/dL (0.00-1.30); Triglycerides 251 mg/dL; Very Low Density Lipoprotein 50 mg/dL (5-40); cholesterol:hdl ratio screen 4.72
== END | disposition home or self-care (01) ==
LOC: BIMLAB 08:01
PROVIDERS: PCP Internal Medicine; Referring Provider Internal Medicine; Visit Provider Internal Medicine
DX: I10 Essential (primary) hypertension (principal)
CPT/HCPCS: 36415; 80053; 80061